=== PATIENT | female | born 1950 | race American Indian/Alaskan Native ===

== ENCOUNTER → 2016-12-29 | Outpatient (CLI) | payer MEDICARE, MEDICAID | LOC: MW.CHORTHO 08:00 | PROVIDERS: ATTEND Physician Assistant | DX: T84.84XA Pain due to internal orthopedic prosthetic devices, implants and grafts, initial encounter (principal); Z96.659 Presence of unspecified artificial knee joint; M25.461 Effusion, right knee; Z96.641 Presence of right artificial hip joint | CPT/HCPCS: 20610; G0463 ==

== ENCOUNTER → 2016-12-30 | Outpatient (CLI) | payer MEDICARE, MEDICAID | LOC: MW.CHNEURO 08:00 | PROVIDERS: ATTEND Psychiatry & Neurology Neuromuscular Medicine | DX: G60.3 Idiopathic progressive neuropathy (principal) | CPT/HCPCS: 95885; 95909; 99211 ==

== ENCOUNTER → 2017-01-03 | Outpatient (CLI) | payer MEDICARE, MEDICAID | LOC: MW.CHORTHO 08:00 | PROVIDERS: ATTEND Physician Assistant | DX: T84.84XA Pain due to internal orthopedic prosthetic devices, implants and grafts, initial encounter (principal); Z96.659 Presence of unspecified artificial knee joint; Z96.652 Presence of left artificial knee joint | CPT/HCPCS: G0463 ==

== ENCOUNTER → 2017-01-10 | Outpatient (CLI) | payer MEDICARE, MEDICAID ==
--- NOTE | 2017-01-11 09:42 | CR ---
EXAMINATION: Left knee HISTORY: Pain COMPARISON: 12/08/2016 TECHNIQUE: 3 views FINDINGS/IMPRESSION: Left total knee hardware is demonstrated in stable position and alignment. No a cute osseous abnormality is noted. No soft tissue swelling or significant joint effusion.
== END ==
LOC: MW.CHORTHO 14:47
PROVIDERS: ATTEND Orthopaedic Surgery
DX: T84.84XA Pain due to internal orthopedic prosthetic devices, implants and grafts, initial encounter (principal); Z96.659 Presence of unspecified artificial knee joint; M17.12 Unilateral primary osteoarthritis, left knee
CPT/HCPCS: 73562-26-LT; 73562-LT; G0463

== ENCOUNTER → 2017-01-24 | Outpatient (CLI) | payer MEDICARE, MEDICAID | END | disposition home or self-care (01) | LOC: MW.CHORTHO 14:01 | PROVIDERS: ATTEND Orthopaedic Surgery | DX: M17.12 Unilateral primary osteoarthritis, left knee (principal); T84.84XA Pain due to internal orthopedic prosthetic devices, implants and grafts, initial encounter; Z96.659 Presence of unspecified artificial knee joint | CPT/HCPCS: 20610; 87070; 87205; 89050; 89060; G0463 ==

== ENCOUNTER → 2017-03-08 | Outpatient (CLI) | payer MEDICARE, MEDICAID ==
--- NOTE | 2017-03-08 15:55 | NM ---
EXAMINATION: 3 phase bone scan of the knees HISTORY: Pain COMPARISON: Knee radiographs dated 12/08/2016 and 06/28/2016. TECHNIQUE: The delayed Multiplanar, angiographic, and blood pool imaging obtained of the knees follo wing the administration of 22.1 mCi of technetium 99m labeled MDP. FINDINGS: There is symmetric flow to the knees bilaterally without evidence of increased activity. There is a trace increased activity along the medial aspect of the left knee on the blood pool imaging. There i s also focally increased uptake on the delayed imaging within this region. Otherwise normal-appearin g post operative periprosthetic uptake is noted within the knees bilaterally. IMPRESSION: 1. Mild focally increased MDP uptake along the medial aspect of the left tibia with a trace increase d blood pool. This is most likely secondary to mild loosening, however mild osteomyelitis could not be excluded. 2. Normal-appearing periprosthetic uptake within the right knee.
== END ==
LOC: MW.NM 09:33
PROVIDERS: ATTEND Orthopaedic Surgery
DX: M17.11 Unilateral primary osteoarthritis, right knee (principal); T84.84XA Pain due to internal orthopedic prosthetic devices, implants and grafts, initial encounter; Z96.651 Presence of right artificial knee joint
CPT/HCPCS: 78315; A9503

== ENCOUNTER 2017-05-15 10:00 | Inpatient (IN) | payer MEDICARE, MEDICAID ==
[2017-08-28] MEDS ORDERED: oxyCODONE ER 20 MG TAB.ER PO SCH (06:00)
[2017-08-28] MEDS ORDERED: Scopolamine 1.5 MG Transdermal Patch TRDERM SCH (06:00)
[2017-08-28] MEDS ORDERED: Lactated Ringers 1,000 ML IV SCH (06:00)
[2017-08-28] MEDS ORDERED: Acetaminophen 500 MG Tab PO SCH (06:00)
[2017-08-28] MEDS ORDERED: Famotidine 20 MG/2 ML SDV IVPUSH SCH (06:00)
[2017-08-28] MEDS ORDERED: Ropivacaine 49.25 ML, Ketorolac 30 MG, EPINEPHrine 0.5 MG, cloNIDine 80 MCG in Sodium C... INJECT ONE (06:00)
[2017-08-28] MEDS ORDERED: ceFAZolin 2 GM in Premix Bag 1 BAG IV SCH (06:00)
[2017-08-28] MEDS ORDERED: Ketorolac 30 MG/ML SDV IVPUSH SCH ×2 (06:00→17:00)
[2017-08-28] MEDS ORDERED: fentaNYL 100 MCG/2 ML SDV ONE (10:55)
[2017-08-28] MEDS ORDERED: Propofol 200 MG/20 ML SDV ONE (10:55)
[2017-08-28] MEDS ORDERED: Lidocaine 2% 5 ML SDV ONE (10:55)
[2017-08-28] MEDS ORDERED: Midazolam 1 MG/ML 2 ML SDV ONE (10:55)
[2017-08-28] MEDS ORDERED: Ondansetron 4 MG/2 ML SDV ONE ×2 (10:56→13:01)
[2017-08-28] MEDS ORDERED: ePHEDrine 50 MG/ML SDV ONE (10:56)
--- NOTE | 2017-08-28 11:08 | PCM.PREANE ---
Preanesthetic Assessment - Procedure Proposed Procedure: Total knee revision - Anesthesia/Transfusion/Family Hx Anesthesia History: Prior Anesthesia Without Reaction Family History of Anesthesia Reaction: No Transfusion History: No Prior Transfusion(s) Intubation History: Unknown - Review of Systems General: Other (Overweight, general CV effectors; Potassium losing - on regular replacement regimen) Pulmonary: Other (COPD) Cardiovascular: Other (CHF hx; hypercholesterolemia; s/p cath - no PCI ) Gastrointestinal: Other (GERD) Neurological: Numbness (?DM), Difficulty Walking (knee pain) Other: Reports: Diabetes - Physical Assessment NPO Status Date: 08/27/17 NPO Status Time: 23:00 Temperature: 95.9 F Vital Signs: Last Vital Signs Temp 95.9 F 08/28/17 10:42 Pulse Resp BP Pulse Ox Height: 5 ft 2 in Weight: 238 lb ASA Class: 3 Mental Status: Alert & Oriented x3 Airway Class: Mallampati = 1 Dentition: Reports: Normal Dentition (uppers only; lower missing) Thyro-Mental Finger Breadths: 3 Mouth Opening Finger Breadths: 3 ROM/Head Extension: Full Lungs: Clear to Auscultation, Normal Respiratory Effort Cardiovascular: Regular Rate, Regular Rhythm, No Murmurs - Allergies Allergies/Adverse Reactions: Allergies Allergy/AdvReac Type Severity Reaction Status Date / Time adhesive Allergy Redness Verified 08/03/17 11:51 hydromorphone [From Dilaudid] Allergy Hallucinati Verified 08/03/17 11:51 ons nickel Allergy Rash Verified 08/03/17 11:51 risedronate sodium Allergy Hallucinati Verified 08/03/17 12:17 [From Actonel] ons sulfamethoxazole Allergy Rash Verified 08/24/17 13:56 [From Bactrim] tramadol HCl [From Ultram] Allergy unknown Verified 03/27/14 12:59 trimethoprim [From Bactrim] Allergy Rash Verified 08/24/17 13:56 - Blood Blood Available: Yes Product(s) Available: PRBC (T and S) - Anesthesia Plan Pre-Op Medication Ordered: Other (per surgeon protocol) - Acknowledgements Anesthesia Type Planned: General Anesthesia (due to Severe GERD), Spinal Pt an Appropriate Candidate for the Planned Anesthesia: Yes Alternatives and Risks of Anesthesia Discussed w Pt/Guardian: Yes Pt/Guardian Understands and Agrees with Anesthesia Plan: Yes PreAnesthesia Questionnaire HEENT History: Reports: Other (See Below) Other HEENT History: wears reading glasses, has top denture Cardiovascular History: Reports: CAD, Heart Failure, High Cholesterol, Hypertension, Other (See Below) Other Cardiovascular History: edema to lower extremities, left heart cath done with no PCI needed Respiratory History: Reports: Other (See Below) Other Respiratory History: has inhaler prescribed for when she has a cold and gets "wheezy", denies any lung problems Gastrointestinal History: Reports: GERD Genitourinary History: Reports: None 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: Musculoskeletal History: Reports: Arthritis, Fracture Other Musculoskeletal History: fx left wrist, walks with walker Neurological History: Reports: Neuropathy, Peripheral Psychiatric History: Reports: Anxiety, Depression Endocrine/Metabolic History: Reports: Obesity/BMI 30+ Immunologic History: Reports: Other (See Below) Other Immunologic History: MRSA in the past, states has had 3 neg tests and is cleared Dermatologic History: Reports: Other (See Below) Other Dermatologic History: rash to rt foot - Past Surgical History Head Surgeries/Procedures: Reports: None HEENT Surgical History: Reports: Cataract Surgery GI Surgical History: Reports: Appendectomy, Cholecystectomy, Colon, Colonoscopy , Other (See Below) Other GI Surgeries/Procedures: hx colon resection Female Surgical History: Reports: Hysterectomy Other Female Surgeries/Procedures: rectocele repair Musculoskeletal Surgical History: Reports: Carpal Tunnel, Knee Replacement Other Musculoskeletal Surgeries/Procedures:: hx devyn knee replacement, ORIF left wrist with plate and screws - SUBSTANCE USE Smoking Status *Q: Former Smoker Recreational Drug Use History: No - HOME MEDS Home Medications: Home Meds ALPRAZolam [Alprazolam] 1 mg PO ASDIRECTED PRN 08/03/17 [History] Albuterol [IJD: Albuterol HFA] 2 puff INH ASDIRECTED PRN 08/03/17 [History] Amitriptyline [Elavil] 10 mg PO BID 08/03/17 [History] Aspirin [[place] Aspirin] 81 mg PO DAILY 08/03/17 [History] Bumetanide 1.5 tab PO BID 08/03/17 [History] Carvedilol 3.125 mg PO BID 08/03/17 [History] DULoxetine HCl [Duloxetine HCl] 60 mg PO DAILY 08/03/17 [History] Esomeprazole [NexIUM] 40 mg PO DAILY 08/03/17 [History] Magnesium Chloride [Slow-Mag] 1 tab PO BID 08/03/17 [History] Metolazone 2.5 mg PO DAILY 08/03/17 [History] Midodrine 5 mg PO TID 08/03/17 [History] Potassium Chloride 3 tab PO TID 08/03/17 [History] Pregabalin [Lyrica] 200 mg PO TID 08/03/17 [History] Ranitidine HCl [Zantac] 150 mg PO BID 08/03/17 [History] Simvastatin [Zocor] 10 mg PO DAILY 08/03/17 [History] oxyCODONE HCl/Acetaminophen [Percocet 10-325 mg Tablet] 1 tab PO BID PRN [History] - CURRENT (IN HOUSE) MEDS Current Meds: Current Medications Acetaminophen (Tylenol Extra Strength) 1,000 mg PO ONARRIVE [facility] Last Admin: 08/28/17 10:42 Dose: 1,000 mg Famotidine (Pepcid) 40 mg IVPUSH ONARRIVE [facility] [place] Last Admin: 08/28/17 10:40 Dose: 40 mg Cefazolin Sodium/Dextrose 2 gm (/ Premix) 50 mls @ 100 mls/hr IV ONCALL ANN MARIE Lactated Ringer's (Ringers, Lactated) 1,000 mls @ 100 mls/hr IV ASDIRECTED ANN MARIE Ketorolac Tromethamine (Toradol) 30 mg IVPUSH ONARRIVE [facility] [place] Last Admin: 08/28/17 10:42 Dose: 30 mg Oxycodone HCl (Oxycontin) 20 mg PO ONARRIVE ANN MARIE Last Admin: 08/28/17 10:43 Dose: 20 mg Scopolamine (Transderm-Scop) 1.5 mg TRDERM ONARRIVE ANN MARIE Last Admin: 08/28/17 10:41 Dose: 1.5 mg Tranexamic Acid (Cyklokapron) 4,000 mg IV SEECOMMENT ANN MARIE Discontinued Medications Ephedrine Sulfate (Ephedrine Sulfate) Confirm Administered Dose 50 mg .ROUTE .STK-MED ONE Stop: 08/28/17 10:57 Fentanyl (Sublimaze) Confirm Administered Dose 200 mcg .ROUTE .STK-MED ONE Stop: 08/28/17 10:56 Ropivacaine 49.25 ml/Ketorolac Tromethamine 30 mg/Epinephrine HCl 0.5 mg/ Clonidine HCl 80 mcg/ Sodium Chloride 100 mls @ 50 mls/min INJECT ONETIME ONE Stop: 08/28/17 06:01 Lidocaine (Xylocaine-Mpf 2%) Confirm Administered Dose 10 ml .ROUTE .STK-MED ONE Stop: 08/28/17 10:56 Midazolam HCl (Versed 1 Mg/Ml) Confirm Administered Dose 2 mg .ROUTE .STK-MED ONE Stop: 08/28/17 10:56 Ondansetron HCl (Zofran) Confirm Administered Dose 4 mg .ROUTE .STK-MED ONE Stop: 08/28/17 10:57 Propofol (Diprivan 20 Ml) Confirm Administered Dose 400 mg .ROUTE .STK-MED ONE Stop: 08/28/17 10:56 Tranexamic Acid (Cyklokapron) Confirm Administered Dose 4,000 mg .ROUTE .STK- MED ONE Stop: 08/28/17 07:17
[2017-08-28] MEDS ORDERED: Ondansetron 4 MG/2 ML SDV IV PRN (12:36)
[2017-08-28] MEDS ORDERED: Bisacodyl 10 MG Supp RECTAL PRN (12:37)
[2017-08-28] MEDS ORDERED: Aluminum Hydroxide/Magnesium Hydroxide/Simethicone Susp 30 ML Cup PO PRN (12:37)
[2017-08-28] MEDS ORDERED: diphenhydrAMINE 25 MG Cap PO PRN (12:37)
--- NOTE | 2017-08-28 13:11 | PCM.OPNOTE ---
- General Post-Op/Procedure Note Date of Surgery/Procedure: 08/28/17 Operative Procedure(s): Revision L TKA with poly exchange Post-Op Diagnosis: Painful L TKA Anesthesia Technique: General ET Tube, Spinal Primary Surgeon: Priscila Maria Food Counter Attendant: Lora Rodriguez Food Counter Attendant: Shani Joseph EBL in mLs: 20 Condition: Good Free Text/Narrative:: tt=35 min #[id number] Intake & Output 08/27/17 08/28/17 08/28/17 22:59 06:59 14:59 Output Total 250 Balance -250
[2017-08-28] MEDS: fentaNYL 100 MCG/2 ML SDV IVPUSH PRN ×2 (13:33→13:40)
[2017-08-28] MEDS: ceFAZolin 2 GM in Premix Bag 1 BAG IV SCH ×3 (14:18→18:25)
[2017-08-28] MEDS ORDERED: Albuterol 8 GM Inhaler INH PRN ×2 (14:29→14:42)
[2017-08-28] MEDS ORDERED: Midodrine 5 MG Tab PO SCH (14:30)
[2017-08-28] MEDS: Acetaminophen/HYDROcodone 325-10 MG Tab PO PRN ×2 (14:40→20:13)
[2017-08-28] MEDS: Midodrine 5 MG Tab PO SCH ×2 (14:48→21:19)
--- NOTE | 2017-08-28 15:12 | PCM.CONS ---
H&P History of Present Illness - General Date of Service: 08/28/17 Admit Problem/Dx: Admission Diagnosis/Problem Admission Diagnosis/Problem Replacement of total knee joint Source of Information: Patient, Old Records History Limitations: Reports: No Limitations - History of Present Illness Initial Comments - Free Text/Narative: THis 67 year old female admitted with Dr. Maria for a revision of L TKA. Hospitalist service consulted for medical management [facility], CHF, and HTN Abeba recently arrived to floor, she is alert and oriented. Having no pain. Denies chest pain or SOB. Reports normal BP is low, 100s-105/60s. She reports Metformin was stopped, she reports they told her she didn't have DM. Prior to surgery she had cardiology clearance with angiogram, this revealed mild non-obstructive CAD. She has known HTN and hypertensive heart disease, along with diastolic heart failure. Headache Pain Score (Numeric/FACES): 3 - Related Data Allergies/Adverse Reactions: Allergies Allergy/AdvReac Type Severity Reaction Status Date / Time adhesive Allergy Redness Verified 08/03/17 11:51 hydromorphone [From Dilaudid] Allergy Hallucinati Verified 08/03/17 11:51 ons nickel Allergy Rash Verified 08/03/17 11:51 risedronate sodium Allergy Hallucinati Verified 08/03/17 12:17 [From Actonel] ons sulfamethoxazole Allergy Rash Verified 08/24/17 13:56 [From Bactrim] tramadol HCl [From Ultram] Allergy unknown Verified 03/27/14 12:59 trimethoprim [From Bactrim] Allergy Rash Verified 08/24/17 13:56 Home Medications: Home Meds ALPRAZolam [Alprazolam] 1 mg PO BID PRN 08/03/17 [History] Albuterol [IJD: Albuterol HFA] 2 puff INH ASDIRECTED PRN 08/03/17 [History] Amitriptyline [Elavil] 10 mg PO BID 08/03/17 [History] Aspirin [[place] Aspirin] 81 mg PO DAILY 08/03/17 [History] Bumetanide 3 mg PO BID@0800,1400 08/03/17 [History] Carvedilol 3.125 mg PO BID 08/03/17 [History] DULoxetine HCl [Duloxetine HCl] 60 mg PO DAILY 08/03/17 [History] Esomeprazole [NexIUM] 40 mg PO DAILY 08/03/17 [History] Magnesium Chloride [Slow-Mag] 1 tab PO BID 08/03/17 [History] Metolazone 2.5 mg PO DAILY 08/03/17 [History] Midodrine 5 mg PO TID 08/03/17 [History] Potassium Chloride 60 meq PO TIDMEALS 08/03/17 [History] Pregabalin [Lyrica] 200 mg PO TID 08/03/17 [History] Ranitidine HCl [Zantac] 150 mg PO BID 08/03/17 [History] Simvastatin [Zocor] 10 mg PO BEDTIME 08/03/17 [History] oxyCODONE HCl/Acetaminophen [Percocet 10-325 mg Tablet] 10 - 325 mg PO BID PRN 08/03/17 [History] Iron Polysaccharide Complex [Polysaccharide Iron 150] 150 mg PO BID 08/28/17 [ History] Nitroglycerin [Nitrostat] 0.4 mg SL .EVERY 5 MINUTES PRN MDD 1.2 mg 08/28/17 [ History] Past Medical History HEENT History: Reports: Other (See Below) Other HEENT History: wears reading glasses, has top denture Cardiovascular History: Reports: CAD (mild non-obstructive CAD), Heart Failure, High Cholesterol, Hypertension, Other (See Below) Other Cardiovascular History: edema to lower extremities Respiratory History: Reports: Other (See Below) Other Respiratory History: has inhaler prescribed for when she has a cold and gets "wheezy", denies any lung problems Gastrointestinal History: Reports: GERD Genitourinary History: Reports: 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: Musculoskeletal History: Reports: Arthritis, Fracture Other Musculoskeletal History: fx left wrist, walks with walker Neurological History: Reports: Neuropathy, Peripheral Psychiatric History: Reports: Anxiety, Depression Endocrine/Metabolic History: Reports: Diabetes, Type II (was at one time treated with metformin, told to stop this due to "not having diabetes"), Obesity /BMI 30+ Immunologic History: Reports: Other (See Below) Other Immunologic History: MRSA in the past, states has had 3 neg tests and is cleared Dermatologic History: Reports: Other (See Below) Other Dermatologic History: rash to rt foot - Past Surgical History Head Surgeries/Procedures: Reports: None HEENT Surgical History: Reports: Cataract Surgery GI Surgical History: Reports: Appendectomy, Cholecystectomy, Colon, Colonoscopy , Other (See Below) Other GI Surgeries/Procedures: hx colon resection Female Surgical History: Reports: Hysterectomy Other Female Surgeries/Procedures: rectocele repair Musculoskeletal Surgical History: Reports: Carpal Tunnel, Knee Replacement Other Musculoskeletal Surgeries/Procedures:: hx devyn knee replacement, ORIF left wrist with plate and screws Social & Family History - Tobacco Use Smoking Status *Q: Former Smoker Used Tobacco, but Quit: Yes Month Tobacco Last Used: quit smoking 5 yrs ago - Recreational Drug Use Recreational Drug Use: No H&P Review of Systems - Review of Systems: Review Of Systems: See Below General: Reports: No Symptoms. Denies: Fever, Chills, Malaise HEENT: Denies: No Symptoms, Headaches, Sinus Congestion, Sore Throat, Vertigo Pulmonary: Denies: Shortness of Breath, Wheezing, Cough, Sputum Cardiovascular: Reports: Edema (typically has some to BLE). Denies: Chest Pain , Palpitations, Orthopnea, Lightheadedness Gastrointestinal: Reports: No Symptoms. Denies: Abdominal Pain, Black Stool, Bloody Stool, Nausea, Vomiting Neurological: Reports: No Symptoms. Denies: Confusion Hematologic/Lymphatic: Reports: No Symptoms. Denies: Anemia Immunologic: Reports: No Symptoms. Denies: Anaphylaxis Exam - Exam Exam: See Below - Vital Signs Vital Signs: Last Vital Signs Temp 98.2 F 08/28/17 12:59 Pulse 75 08/28/17 13:57 Resp 10 L 08/28/17 13:57 BP 95/50 L 08/28/17 14:17 Pulse Ox 96 08/28/17 13:57 Weight: 107.955 kg - Exam Quality Assessment: Supplemental Oxygen, Urinary Catheter, DVT Prophylaxis General: Alert, Oriented, Cooperative HEENT: Conjunctiva Clear, Mucosa Moist & [place], Pupils Equal, Pupils Reactive Neck: Supple, Trachea Midline, 2 Lungs: Clear to Auscultation, Normal Respiratory Effort Cardiovascular: Regular Rate, Regular Rhythm, Normal S1, Normal S2. No: Systolic Murmur Extremities: Normal Inspection, Pedal Edema (+1 pitting BLE) Skin: Incision (LTKA dressing C/D/I ) Neuro Extensive - Mental Status: Alert, Oriented x3, Normal Mood/Affect, Normal Cognition Psychiatric: Alert, Normal Affect, Normal Mood - Patient Data Lab Results Last 24 hrs: Laboratory Results - last 24 hr 08/28/17 08/28/17 08/28/17 Range/Units 10:02 13:45 14:27 WBC 7.24 (4.0-11.0) K/uL RBC 4.23 L (4.30-5.90) M/uL Hgb 12.0 (12.0-16.0) g/dL Hct 36.6 (36.0-46.0) % MCV 86.5 (80.0-98.0) fL MCH 28.4 (27.0-32.0) pg MCHC 32.8 (31.0-37.0) g/dL RDW Std Deviation 45.1 (28.0-62.0) fl RDW Coeff of So 14 (11.0-15.0) % Plt Count 179 (150-400) K/uL MPV 11.70 (7.40-12.00) fL Neut % (Auto) 57.7 (48.0-80.0) % Lymph % (Auto) 28.3 (16.0-40.0) % [place] % (Auto) 6.4 (0.0-15.0) % Eos % (Auto) 7.0 (0.0-7.0) % Baso % (Auto) 0.6 (0.0-1.5) % Neut # (Auto) 4.2 (1.4-5.7) K/uL Lymph # (Auto) 2.1 (0.6-2.4) K/uL Newton # (Auto) 0.5 (0.0-0.8) K/uL Eos # (Auto) 0.5 (0.0-0.7) K/uL Baso # (Auto) 0.0 (0.0-0.1) K/uL Nucleated RBC % 0.0 /100WBC Nucleated RBCs # 0 K/uL POC Glucose 126 H (60-110) mg/dL Blood Type O POSITIVE Antibody Screen NEGATIVE Result Diagrams: 08/28/17 14:27 08/28/17 14:27 Chriss Results Last 24 hrs: Microbiology 08/28/17 12:05 Gram Stain - Final Leg, Left Consult PN Assessment/Plan Procedures: Procedures BODY FLUID CELL COUNT (01/24/17) BONE IMAGING 3 PHASE (03/08/17) CHEST X-RAY 1 VIEW FRONTAL (11/18/16) CULTURE OTHR SPECIMN AEROBIC (01/24/17) DRAIN/INJ JOINT/BURSA W/O US (12/08/16) EXAM SYNOVIAL FLUID CRYSTALS (01/24/17) LUNG VENTILAT&PERFUS IMAGING (11/18/16) OFFICE/OUTPATIENT VISIT NEW (09/16/16) OFFICE/OUTPATIENT VISIT NEW (03/26/14) ORGANIC ACID SINGLE QUANT (09/16/16) PROTEIN E-PHORESIS SERUM (09/16/16) SMEAR GRAM STAIN (01/24/17) URINALYSIS NONAUTO W/SCOPE (03/26/14) VITAMIN B-12 (09/16/16) X-RAY EXAM KNEE 4 OR MORE (12/08/16) X-RAY EXAM OF KNEE 3 (06/28/16) (1) S/P revision of total knee SNOMED Code(s): 578888429 Code(s): Z96.659 - PRESENCE OF UNSPECIFIED ARTIFICIAL KNEE JOINT Current Visit: Yes Qualifiers: Laterality: left Qualified Code(s): Z96.652 - Presence of left artificial knee joint (2) HTN (hypertension) SNOMED Code(s): 22373468 Code(s): I10 - ESSENTIAL (PRIMARY) HYPERTENSION Current Visit: Yes Qualifiers: Hypertension type: essential hypertension Qualified Code(s): I10 - Essential (primary) hypertension (3) Hypertensive heart disease SNOMED Code(s): 85303183 Code(s): I11.9 - HYPERTENSIVE HEART DISEASE WITHOUT HEART FAILURE Current Visit: Yes Qualifiers: Heart failure presence: with heart failure Qualified Code(s): I11.0 - Hypertensive heart disease with heart failure (4) Diastolic CHF SNOMED Code(s): 472959798 Code(s): I50.30 - UNSPECIFIED DIASTOLIC (CONGESTIVE) HEART FAILURE Current Visit: Yes Qualifiers: Congestive heart failure chronicity: chronic Qualified Code(s): I50.32 - Chronic diastolic (congestive) heart failure (5) Hx of diabetes mellitus SNOMED Code(s): 691933195 Code(s): Z86.39 - PERSONAL HISTORY OF ENDO, NUTRITIONAL AND METABOLIC DISEASE Current Visit: Yes (6) Depression SNOMED Code(s): 79461542 Code(s): F32.9 - MAJOR DEPRESSIVE DISORDER, SINGLE EPISODE, UNSPECIFIED Current Visit: Yes Qualifiers: Depression Type: unspecified Qualified Code(s): F32.9 - Major depressive disorder, single episode, unspecified (7) Anxiety SNOMED Code(s): 80456061 Code(s): F41.9 - ANXIETY DISORDER, UNSPECIFIED Current Visit: Yes (8) Hypokalemia SNOMED Code(s): 21101431 Code(s): E87.6 - HYPOKALEMIA Current Visit: Yes (9) Hypomagnesemia SNOMED Code(s): 297028184 Code(s): E83.42 - HYPOMAGNESEMIA Current Visit: Yes (10) Morbid obesity with BMI of 40.0-44.9, adult SNOMED Code(s): 734186434 Code(s): E66.01 - MORBID (SEVERE) OBESITY DUE TO EXCESS CALORIES; Z68.41 - BODY MASS INDEX (BMI) 40.0-44.9, ADULT Current Visit: Yes Problem List Initiated/Reviewed/Updated: Yes My Orders Last 24 Hours: My Active Orders 08/28/17 14:27 BASIC METABOLIC PANEL,BMP [CHEM] Routine MAGNESIUM [CHEM] Routine 08/28/17 14:29 ALPRAZolam 1 mg PO ASDIRECTED PRN 08/28/17 14:37 Midodrine 5 mg PO TID 08/28/17 14:42 Albuterol [Ventolin HFA] 0 gm INH Q4H PRN 08/28/17 21:00 Amitriptyline [Elavil] 10 mg PO BID Bumetanide [Bumetanide] 1.5 tab PO BID Carvedilol [Coreg] 3.125 mg PO BID Simvastatin [Zocor] 10 mg PO BEDTIME 08/28/17 22:00 Pregabalin [Lyrica] 200 mg PO TID 08/29/17 09:00 DULoxetine [Cymbalta] 60 mg PO DAILY Metolazone [Zaroxolyn] 2.5 mg PO DAILY Plan: This 67 year old female admitted with revision of L TKA. Hospitalist service consulted for medical management due to comorbidities. 1. S/P revision L TKA: Orders per Dr. Maria, will stop Celebrex and Toradol due to CAD. 2. HTN: Continue Coreg 3.125 mg BID. 3. Diastolic CHF: Stable, did recieve 2 L IVF in OR, will stop IVFs now and monitor. BP normally on the low end. Monitor closely mariela overload, DAILY weight and STRICT I/O, low Na diet. Continue Bumex and Metolazone. Also continue Midodrine for hypotension. 4. Hyokalemia/hypomagnesemia: Supplement and monitor daily. Will continue KCL PO 60 MEQ TID and add IV Magnesium. recheck in am. Due to K+ 2.8, will place on telemetry. 5. CAD:Continue ASA and Atorvastatin. Stop Celebrex and Toradol due to CAD and cardiac risk. VTE prophlyaxis: Would recommend when Ortho deems appropriate, currently ASA 325 BID ordered.
[2017-08-28] MEDS ORDERED: Magnesium Sulfate/Water 4 GM in Premix Bag 1 BAG IV ONE (15:24)
[2017-08-28] MEDS: Potassium Chloride 20 MEQ Tab.ER PO SCH (17:26)
--- NOTE | 2017-08-28 18:25 | PCM.SN ---
- Free Text/Narrative Note: Late Entry - Ancef 2 grams IV was given at 8087-3722 Intra-Op after cultures were obtained. Per Gerson Suggs [employer]
--- NOTE | 2017-08-28 19:15 | OR ---
SURGEON: Priscila Maria MD DATE OF PROCEDURE: 08/28/2017 PREOPERATIVE DIAGNOSIS: Painful left total knee arthroplasty. POSTOPERATIVE DIAGNOSIS: Painful left total knee arthroplasty. PROCEDURE: Revision left total knee arthroplasty with polyethylene exchange. ASSISTING: Lora Rodriguez PA-C and Shani Joseph PA-C. ANESTHESIA: Spinal and general. ESTIMATED BLOOD LOSS: 20 mL. TOURNIQUET TIME: 35 minutes. COMPLICATIONS: None. DVT PROPHYLAXIS: PAS boot and GABRIELLE hose to the nonoperative leg. IMPLANTS USED: Size 12 all-polyethylene articular surface. BRIEF HISTORY: Abeba is a 67-year-old female, who underwent a left total knee arthroplasty approximately 4 years ago. She did well initially following the surgery. She has developed increased pain in the knee. She has had synovial studies done as well as a bone scan, which did not show significant abnormal findings. Due to her lack of response to conservative treatment, I did recommend surgical intervention. The risks and goals of procedure were discussed with the patient and documented preoperatively. She agreed to proceed. DESCRIPTION OF PROCEDURE: The patient was properly identified and brought to the operating room. She was transferred from the OR cart and placed on the operating table in supine position. Spinal anesthetic was administered. After adequate anesthesia was obtained, a general anesthesia was also administered. Following this, a well- padded tourniquet was applied to the left lower extremity. The left lower extremity was then prepped in standard fashion using ChloraPrep solution. It was then sterilely draped. A time-out was performed to ensure correct site and procedure. Preoperative antibiotics were held. The surgical site had been marked preoperatively. An Esmarch was used to exsanguinate the left lower extremity and the tourniquet was inflated to 250 mmHg. Incision was made over the site of the previous incision. The subcutaneous tissues were dissected down to the level of the fascia. A medial parapatellar approach to the knee was made. A straw-colored fluid was found within the joint. No purulence was noted. The polyethylene was then removed without difficulty. It was inspected. There was some minor wear, which appeared to be within normal limits. The tissue was taken from the posterior aspect of the knee near the polyethylene and tibial tray. This was sent for cultures along with pathologic review. The pathology revealed less than 1 WBC per high-powered field, then we elected to proceed with the surgery. I thoroughly inspected the edges of the implant and bone interface. There did not appear to be any failure of the actual prosthesis and I elected to leave these in place. She did have abundant scar tissue noted around the circumference of her patella. This was debrided with electrocautery. A 12 mm articular surface trial was trialed and this felt stable to varus and valgus stressing in both the extended and flexed position. It was then removed. 6 L of normal saline were then irrigated through the knee joint using a Pulsavac magazine worker. The 12 mm articular surface was then inserted without difficulty and it snapped easily into place. She was again taken through a range of motion and the knee was felt to be stable. Tourniquet was then deflated. No excess bleeding was noted. The fascial layer was then closed with #1 Vicryl. The subcutaneous tissues were closed with 2-0 Vicryl and the skin was closed with michael. Xeroform gauze was placed over the wound and a bulky dressing was applied. She was awakened from her anesthetic and transferred back to the operating room cart. She was brought to recovery room in stable condition. All needle and sponge counts were correct. ERIKA / SWATI /[id number] [place]
[2017-08-28] MEDS: Carvedilol 3.125 MG Tab PO SCH (20:14)
[2017-08-28] MEDS: Simvastatin 10 MG Tab PO SCH (20:17)
[2017-08-28] MEDS: Amitriptyline 10 MG Tab PO SCH (20:17)
[2017-08-28] MEDS: Docusate Sodium 100 MG Cap PO SCH (20:17)
[2017-08-28] MEDS ORDERED: Bumetanide 1 MG Tab PO SCH (21:00)
[2017-08-28] MEDS: ALPRAZolam 0.5 MG Tab PO PRN (21:18)
[2017-08-28] MEDS: Pregabalin 200 MG Cap PO SCH (21:18)
[2017-08-29] MEDS: ceFAZolin 2 GM in Premix Bag 1 BAG IV SCH (01:14)
[2017-08-29] MEDS: Midodrine 5 MG Tab PO SCH ×3 (05:49→22:02)
[2017-08-29] MEDS: Pregabalin 200 MG Cap PO SCH ×3 (05:50→22:02)
--- NOTE | 2017-08-29 07:06 | PCM48HPAN ---
Post Anesthesia Note - EVALUATION WITHIN 48HRS OF ANESTHETIC Vital Signs in Normal Range: Yes Patient Participated in Evaluation: Yes Respiratory Function Stable: Yes Airway Patent: Yes Cardiovascular Function Stable: Yes Hydration Status Stable: Yes Pain Control Satisfactory: Yes Nausea and Vomiting Control Satisfactory: Yes Mental Status Recovered: Yes - COMMENTS/OBSERVATIONS Free Text/Narrative:: Hypomagnesia improving, hypokalemia still requires correction.
[2017-08-29] MEDS ORDERED: Sodium Chloride 0.9% 2.5 ML Syringe FLUSH PRN (08:08)
[2017-08-29] MEDS ORDERED: Sodium Chloride 0.9% 10 ML Syringe FLUSH PRN (08:08)
--- NOTE | 2017-08-29 08:08 | PCM.SURGPN ---
<Lora Rodriguez - Last Filed: 08/29/17 08:06> - General Info Date of Service: 08/29/17 Date of Surgery/Procedure: 08/28/17 POD#: 1 Functional Status: Reports: Pain Controlled, Tolerating Diet, Ambulating - Review of Systems General: Reports: No Symptoms HEENT: Reports: No Symptoms Pulmonary: Reports: No Symptoms Cardiovascular: Reports: No Symptoms Gastrointestinal: Reports: No Symptoms Genitourinary: Reports: No Symptoms Musculoskeletal: Reports: Leg Pain, Joint Pain, Joint Swelling Neurological: Reports: No Symptoms Psychiatric: Reports: No Symptoms - Patient Data Vitals - Most Recent: Last Vital Signs Temp 36.4 C 08/29/17 07:34 Pulse 71 08/29/17 04:00 Resp 18 08/29/17 07:34 BP 101/63 08/29/17 07:34 Pulse Ox 94 L 08/29/17 07:34 Weight - Most Recent: 104 kg I&O - Last 24 Hours: Intake & Output 08/28/17 08/29/17 08/29/17 22:59 06:59 14:59 Intake Total 690 50 Output Total 30 Balance 660 50 Lab Results Last 24 Hrs: Laboratory Results - last 24 hr 08/28/17 08/28/17 08/28/17 Range/Units 10:02 13:45 14:27 WBC (4.0-11.0) K/uL RBC (4.30-5.90) M/uL Hgb (12.0-16.0) g/dL Hct (36.0-46.0) % MCV (80.0-98.0) fL MCH (27.0-32.0) pg MCHC (31.0-37.0) g/dL RDW Std Deviation (28.0-62.0) fl RDW Coeff of So (11.0-15.0) % Plt Count (150-400) K/uL MPV (7.40-12.00) fL Neut % (Auto) (48.0-80.0) % Lymph % (Auto) (16.0-40.0) % [place] % (Auto) (0.0-15.0) % Eos % (Auto) (0.0-7.0) % Baso % (Auto) (0.0-1.5) % Neut # (Auto) (1.4-5.7) K/uL Lymph # (Auto) (0.6-2.4) K/uL [place] # (Auto) (0.0-0.8) K/uL Eos # (Auto) (0.0-0.7) K/uL Baso # (Auto) (0.0-0.1) K/uL Nucleated RBC % /100WBC Nucleated RBCs # K/uL Sodium 142 (136-146) mmol/L Potassium 2.8 L (3.5-5.1) mmol/L Chloride 97 L (98-110) mmol/L Carbon Dioxide 31 (21-31) mmol/L BUN 13 (6.0-23.0) mg/dL Creatinine 1.1 (0.6-1.5) mg/dL Est Cr Clr Drug Dosing 38.18 mL/min Estimated GFR (MDRD) 49.2 ml/min Glucose 131 H (60-110) mg/dL POC Glucose 126 H (60-110) mg/dL Calcium 8.9 (8.8-10.8) mg/dL Magnesium 1.4 L (1.5-2.3) mEq/L Blood Type O POSITIVE Antibody Screen NEGATIVE 08/28/17 08/28/17 08/29/17 Range/Units 14:27 20:39 05:04 WBC 7.24 (4.0-11.0) K/uL RBC 4.23 L (4.30-5.90) M/uL Hgb 12.0 11.3 L (12.0-16.0) g/dL Hct 36.6 35.0 L (36.0-46.0) % MCV 86.5 (80.0-98.0) fL MCH 28.4 (27.0-32.0) pg MCHC 32.8 (31.0-37.0) g/dL RDW Std Deviation 45.1 (28.0-62.0) fl RDW Coeff of So 14 (11.0-15.0) % Plt Count 179 (150-400) K/uL MPV 11.70 (7.40-12.00) fL Neut % (Auto) 57.7 (48.0-80.0) % Lymph % (Auto) 28.3 (16.0-40.0) % [place] % (Auto) 6.4 (0.0-15.0) % Eos % (Auto) 7.0 (0.0-7.0) % Baso % (Auto) 0.6 (0.0-1.5) % Neut # (Auto) 4.2 (1.4-5.7) K/uL Lymph # (Auto) 2.1 (0.6-2.4) K/uL [place] # (Auto) 0.5 (0.0-0.8) K/uL Eos # (Auto) 0.5 (0.0-0.7) K/uL Baso # (Auto) 0.0 (0.0-0.1) K/uL Nucleated RBC % 0.0 /100WBC Nucleated RBCs # 0 K/uL Sodium (136-146) mmol/L Potassium (3.5-5.1) mmol/L Chloride (98-110) mmol/L Carbon Dioxide (21-31) mmol/L BUN (6.0-23.0) mg/dL Creatinine (0.6-1.5) mg/dL Est Cr Clr Drug Dosing mL/min Estimated GFR (MDRD) ml/min Glucose (60-110) mg/dL POC Glucose 221 H (60-110) mg/dL Calcium (8.8-10.8) mg/dL Magnesium (1.5-2.3) mEq/L Blood Type Antibody Screen 08/29/17 Range/Units 05:04 WBC (4.0-11.0) K/uL RBC (4.30-5.90) M/uL Hgb (12.0-16.0) g/dL Hct (36.0-46.0) % MCV (80.0-98.0) fL MCH (27.0-32.0) pg MCHC (31.0-37.0) g/dL RDW Std Deviation (28.0-62.0) fl RDW Coeff of So (11.0-15.0) % Plt Count (150-400) K/uL MPV (7.40-12.00) fL Neut % (Auto) (48.0-80.0) % Lymph % (Auto) (16.0-40.0) % [place] % (Auto) (0.0-15.0) % Eos % (Auto) (0.0-7.0) % Baso % (Auto) (0.0-1.5) % Neut # (Auto) (1.4-5.7) K/uL Lymph # (Auto) (0.6-2.4) K/uL [place] # (Auto) (0.0-0.8) K/uL Eos # (Auto) (0.0-0.7) K/uL Baso # (Auto) (0.0-0.1) K/uL Nucleated RBC % /100WBC Nucleated RBCs # K/uL Sodium 142 (136-146) mmol/L Potassium 2.8 L (3.5-5.1) mmol/L Chloride 97 L (98-110) mmol/L Carbon Dioxide 32 H (21-31) mmol/L BUN 13 (6.0-23.0) mg/dL Creatinine 1.2 (0.6-1.5) mg/dL Est Cr Clr Drug Dosing 34.99 mL/min Estimated GFR (MDRD) 44.5 ml/min Glucose 134 H (60-110) mg/dL POC Glucose (60-110) mg/dL Calcium 8.9 (8.8-10.8) mg/dL Magnesium 2.2 (1.5-2.3) mEq/L Blood Type Antibody Screen Chriss Results Last 24 Hrs: Microbiology 08/28/17 12:05 Gram Stain - Final Leg, Left Med Orders - Current: Current Medications Hydrocodone Bitart/Acetaminophen ([place] 325-10 Mg) 1 - 2 tab PO Q4H PRN PRN Reason: Pain Last Admin: 08/28/17 20:13 Dose: 2 tab Al Hydroxide/Mg Hydroxide (Mag-Al Plus) 30 ml PO Q4H PRN PRN Reason: indigestion Albuterol (Ventolin Hfa) 0 gm INH Q4H PRN PRN Reason: Shortness of Breath Alprazolam (Xanax) 1 mg PO BID PRN PRN Reason: Anxiety Last Admin: 08/28/17 21:18 Dose: 1 mg Amitriptyline HCl (Elavil) 10 mg PO BID [facility] MARIE Last Admin: 08/28/17 20:17 Dose: 10 mg Aspirin (Aspirin) 325 mg PO BID [facility] Bisacodyl (Dulcolax) 10 mg RECTAL DAILY PRN PRN Reason: Constipation Bumetanide (Bumex) 3 mg PO BID@0800,1400 [facility] Carvedilol (Coreg) 3.125 mg PO BID [facility] Last Admin: 08/28/17 20:14 Dose: 3.125 mg Diphenhydramine HCl (Benadryl) 25 - 50 mg PO Q6H PRN PRN Reason: Itching Docusate Sodium (Colace) 100 mg PO BID [facility] Last Admin: 08/28/17 20:17 Dose: 100 mg Duloxetine HCl (Cymbalta) 60 mg PO DAILY [facility] Fentanyl (Sublimaze) 50 mcg IVPUSH Q5M PRN PRN Reason: Pain (severe 7-10) Stop: 08/29/17 12:18 Last Admin: 08/28/17 13:40 Dose: 50 mcg Metolazone (Zaroxolyn) 2.5 mg PO DAILY [facility] Midodrine (Midodrine) 5 mg PO TID [facility] Last Admin: 08/29/17 05:49 Dose: 5 mg Ondansetron HCl (Zofran) 4 mg IV Q6HR PRN PRN Reason: NAUSEA/VOMITING Potassium Chloride (Klor-Con M20) 60 meq PO TIDMEALS [facility] Last Admin: 08/28/17 17:26 Dose: 60 meq Pregabalin (Lyrica) 200 mg PO TID [facility] Last Admin: 08/29/17 05:50 Dose: 200 mg Scopolamine (Transderm-Scop) 1.5 mg TRDERM ONARRIVE [facility] Last Admin: 08/28/17 10:41 Dose: 1.5 mg Simvastatin (Zocor) 10 mg PO BEDTIME [facility] Last Admin: 08/28/17 20:17 Dose: 10 mg Discontinued Medications Acetaminophen (Tylenol Extra Strength) 1,000 mg PO ONARRIVE [facility] Last Admin: 08/28/17 10:42 Dose: 1,000 mg Albuterol (Ventolin Hfa) 2 gm INH Q4H PRN PRN Reason: Shortness of Breath Bumetanide (Bumex) 3 mg PO 08/28/17@2100 [facility] Stop: 08/28/17 21:01 Last Admin: 08/28/17 20:24 Dose: 3 mg Celecoxib (Celebrex) 200 mg PO DAILY [facility] Ephedrine Sulfate (Ephedrine Sulfate) Confirm Administered Dose 50 mg .ROUTE .STK-MED ONE Stop: 08/28/17 10:57 Famotidine (Pepcid) 40 mg IVPUSH ONARRIVE [facility] Last Admin: 08/28/17 10:40 Dose: 40 mg Fentanyl (Sublimaze) Confirm Administered Dose 200 mcg .ROUTE .STK-MED ONE Stop: 08/28/17 10:56 Cefazolin Sodium/Dextrose 2 gm (/ Premix) 50 mls @ 100 mls/hr IV ONCALL [facility] Ropivacaine 49.25 ml/Ketorolac Tromethamine 30 mg/Epinephrine HCl 0.5 mg/ Clonidine HCl 80 mcg/ Sodium Chloride 100 mls @ 50 mls/min INJECT ONETIME ONE Stop: 08/28/17 06:01 Last Admin: 08/28/17 14:17 Dose: Not Given Lactated Ringer's (Ringers, Lactated) 1,000 mls @ 100 mls/hr IV ASDIRECTED [facility] Last Admin: 08/28/17 10:35 Dose: 100 mls/hr Cefazolin Sodium/Dextrose 2 gm (/ Premix) 50 mls @ 100 mls/hr IV Q8HR [facility] Stop: 08/28/17 22:29 Last Admin: 08/28/17 17:27 Dose: Not Given Magnesium Sulfate 4 gm/ Premix 100 mls @ 50 mls/hr IV ONETIME ONE Stop: 08/28/17 17:23 Last Admin: 08/28/17 15:50 Dose: 50 mls/hr Cefazolin Sodium/Dextrose 2 gm (/ Premix) 50 mls @ 100 mls/hr IV Q8H [facility] Stop: 08/29/17 01:44 Last Infusion: 08/29/17 02:03 Dose: Infused Ketorolac Tromethamine (Toradol) 30 mg IVPUSH ONARRIVE [facility] Last Admin: 08/28/17 10:42 Dose: 30 mg Ketorolac Tromethamine (Toradol) 30 mg IVPUSH Q6H [facility] Stop: 08/29/17 09:00 Lidocaine (Xylocaine-Mpf 2%) Confirm Administered Dose 10 ml .ROUTE .STK-MED ONE Stop: 08/28/17 10:56 Midazolam HCl (Versed 1 Mg/Ml) Confirm Administered Dose 2 mg .ROUTE .STK-MED ONE Stop: 08/28/17 10:56 Midodrine (Midodrine) 5 mg PO TID [facility] Last Admin: 08/28/17 15:34 Dose: Not Given Ondansetron HCl (Zofran) Confirm Administered Dose 4 mg .ROUTE .STK-MED ONE Stop: 08/28/17 10:57 Ondansetron HCl (Zofran) Confirm Administered Dose 4 mg .ROUTE .STK-MED ONE Stop: 08/28/17 13:02 Last Admin: 08/28/17 14:18 Dose: Not Given Oxycodone HCl (Oxycontin) 20 mg PO ONARRIVE [facility] Last Admin: 08/28/17 10:43 Dose: 20 mg Propofol (Diprivan 20 Ml) Confirm Administered Dose 400 mg .ROUTE .STK-MED ONE Stop: 08/28/17 10:56 Tranexamic Acid (Cyklokapron) 4,000 mg IV SEECOMMENT [facility] Tranexamic Acid (Cyklokapron) Confirm Administered Dose 4,000 mg .ROUTE .STK- MED ONE Stop: 08/28/17 07:17 - Exam Wound/Incisions: Dressing Dry and Intact General: Alert, Oriented HEENT: Pupils Equal, Pupils Reactive Neck: Trachea Midline Lungs: Normal Respiratory Effort Cardiovascular: Regular Rate Extremities: Other (Left anterior tibialis, extensor hallucis longus and gastrocnemius strength +5/5 bilaterally. Sensation intact. Dorsalis pedis and posterior tibial pulses +2 bilaterally. ) Neurological: No New Focal Deficit Psy/Mental Status: Alert, Normal Affect, Normal Mood - Problem List Review Problem List Initiated/Reviewed/Updated: Yes - My Orders Last 24 Hours: Active Orders 24 hr Category Date Time Status Patient Status [ADT] Routine ADT 08/28/17 09:57 Active Activity as Tolerated [RC] .Routine Care 08/28/17 12:36 Active Height and Weight [RC] DAILY Care 08/28/17 15:31 Active Intake and Output Strict [RC] Q4H Care 08/28/17 15:31 Active Intake and Output [RC] Q12H Care 08/28/17 12:36 Inactive Neurovascular Check [RC] Q2HR Care 08/28/17 12:36 Active Notify Provider Consults [RC] ASDIRECTED Care 08/28/17 13:20 Active Notify Provider Vital Signs [RC] ASDIRECTED Care 08/28/17 12:36 Active Overnight Pulse Oximetry [RC] Click to Edit Care 08/28/17 13:20 Active RT Incentive Spirometry [RC] ASDIRECTED Care 08/28/17 12:36 Active Telemetry Monitoring [Cardiac Monitoring] [RC] Q8H Care 08/28/17 15:24 Active Vital Signs [RC] Q4H Care 08/28/17 12:36 Active Consult to Physician [CONS] Routine Cons 08/28/17 13:19 Active PT Evaluation and Treatment [CONS] Routine Cons 08/28/17 12:36 Active Heart Healthy Diet [DIET] Diet 08/28/17 Dinner Active BASIC METABOLIC PANEL,BMP [CHEM] DAILY Lab 08/30/17 05:00 Ordered CULTURE ANAEROBIC [RM] Routine Lab 08/28/17 12:05 Results CULTURE WOUND [RM] Routine Lab 08/28/17 12:05 Results GRAM STAIN [RM] Routine Lab 08/28/17 12:05 Results HEMOGLOBIN/HEMATOCRIT,HH [HEME] DAILY Lab 08/30/17 07:00 Ordered HEMOGLOBIN/HEMATOCRIT,HH [HEME] DAILY Lab 08/31/17 07:00 Ordered MAGNESIUM [CHEM] DAILY Lab 08/30/17 05:00 Ordered ALPRAZolam [Xanax] Med 08/28/17 14:29 Active 1 mg PO BID PRN Acetaminophen/HYDROcodone [[place] 325-10 MG] Med 08/28/17 12:37 Active 1 - 2 tab PO Q4H PRN Albuterol [Ventolin HFA] Med 08/28/17 14:42 Active 0 gm INH Q4H PRN Alum Hydrox/Mag Hydrox/Simeth [Mag-Al Plus] Med 08/28/17 12:37 Active 30 ml PO Q4H PRN Amitriptyline [Elavil] Med 08/28/17 21:00 Active 10 mg PO BID Aspirin Med 08/29/17 09:00 Active 325 mg PO BID Bisacodyl [Dulcolax] Med 08/28/17 12:37 Active 10 mg RECTAL DAILY PRN Bumetanide [Bumex] Med 08/29/17 08:00 Active 3 mg PO BID@0800,1400 Carvedilol [Coreg] Med 08/28/17 21:00 Active 3.125 mg PO BID DULoxetine [Cymbalta] Med 08/29/17 09:00 Active 60 mg PO DAILY Docusate Sodium [Colace] Med 08/28/17 21:00 Active 100 mg PO BID Metolazone [Zaroxolyn] Med 08/29/17 09:00 Active 2.5 mg PO DAILY Midodrine Med 08/28/17 14:37 Active 5 mg PO TID Ondansetron [Zofran] Med 08/28/17 12:36 Active 4 mg IV Q6HR PRN Potassium Chloride [Klor-Con M20] Med 08/28/17 17:30 Active 60 meq PO TIDMEALS Pregabalin [Lyrica] Med 08/28/17 22:00 Active 200 mg PO TID Simvastatin [Zocor] Med 08/28/17 21:00 Active 10 mg PO BEDTIME diphenhydrAMINE [Benadryl] Med 08/28/17 12:37 Active 25 - 50 mg PO Q6H PRN fentaNYL [Sublimaze] Med 08/28/17 12:18 Active 50 mcg IVPUSH Q5M PRN Ice Therapy [OM.PC] Routine Oth 08/28/17 12:36 Ordered Pulse Oximetry Continuous Monitoring [OM.PC] Routine Oth 08/28/17 13:20 Ordered Medication Orders Hydrocodone Bitart/Acetaminophen ([place] 325-10 Mg) 1 - 2 tab PO Q4H PRN PRN Reason: Pain Last Admin: 08/28/17 20:13 Dose: 2 tab Admin: 08/28/17 14:40 Dose: 2 tab Al Hydroxide/Mg Hydroxide (Mag-Al Plus) 30 ml PO Q4H PRN PRN Reason: indigestion Albuterol (Ventolin Hfa) 0 gm INH Q4H PRN PRN Reason: Shortness of Breath Alprazolam (Xanax) 1 mg PO BID PRN PRN Reason: Anxiety Last Admin: 08/28/17 21:18 Dose: 1 mg Amitriptyline HCl (Elavil) 10 mg PO BID [facility] Last Admin: 08/28/17 20:17 Dose: 10 mg Aspirin (Aspirin) 325 mg PO BID [facility] Bisacodyl (Dulcolax) 10 mg RECTAL DAILY PRN PRN Reason: Constipation Bumetanide (Bumex) 3 mg PO BID@0800,1400 [facility] Carvedilol (Coreg) 3.125 mg PO BID [facility] Last Admin: 08/28/17 20:14 Dose: 3.125 mg Diphenhydramine HCl (Benadryl) 25 - 50 mg PO Q6H PRN PRN Reason: Itching Docusate Sodium (Colace) 100 mg PO BID [facility] Last Admin: 08/28/17 20:17 Dose: 100 mg Duloxetine HCl (Cymbalta) 60 mg PO DAILY [facility] Fentanyl (Sublimaze) 50 mcg IVPUSH Q5M PRN PRN Reason: Pain (severe 7-10) Stop: 08/29/17 12:18 Last Admin: 08/28/17 13:40 Dose: 50 mcg Admin: 08/28/17 13:33 Dose: 50 mcg Metolazone (Zaroxolyn) 2.5 mg PO DAILY [facility] Midodrine (Midodrine) 5 mg PO TID [facility] Last Admin: 08/29/17 05:49 Dose: 5 mg Admin: 08/28/17 21:19 Dose: 5 mg Admin: 08/28/17 14:48 Dose: 5 mg Ondansetron HCl (Zofran) 4 mg IV Q6HR PRN PRN Reason: NAUSEA/VOMITING Potassium Chloride (Klor-Con M20) 60 meq PO TIDMEALS [facility] Last Admin: 08/28/17 17:26 Dose: 60 meq Pregabalin (Lyrica) 200 mg PO TID [facility] Last Admin: 08/29/17 05:50 Dose: 200 mg Admin: 08/28/17 21:18 Dose: 200 mg Scopolamine (Transderm-Scop) 1.5 mg TRDERM ONARRIVE [facility] Last Admin: 08/28/17 10:41 Dose: 1.5 mg Simvastatin (Zocor) 10 mg PO BEDTIME [facility] Last Admin: 08/28/17 20:17 Dose: 10 mg - Assessment Assessment (Free Text/Narrative):: Patient up to chair this AM. Pain well-controlled. Tolerating diet. Ambulating. VSS. Hgb 11.3. UO 355 mL. - Plan Plan (Free Text/Narrative):: Continue PT. Continue pain control. Encourage PO fluid intake. Discontinue boyd and LRs. Start Aspirin 325 mg PO BID for DVT prophylaxis. Discharge home this afternoon. <HawthornePriscila R - Last Filed: 08/29/17 17:26> - Patient Data Vitals - Most Recent: Last Vital Signs Temp 97.1 F 08/29/17 11:35 Pulse 71 08/29/17 04:00 Resp 18 08/29/17 11:35 BP 100/60 08/29/17 11:35 Pulse Ox 94 L 08/29/17 07:34 I&O - Last 24 Hours: Intake & Output 08/29/17 08/29/17 08/29/17 06:59 14:59 22:59 Intake Total 300 1670 620 Output Total 1800 1400 900 Balance -1500 270 -280 Lab Results Last 24 Hrs: Laboratory Results - last 24 hr 08/28/17 08/29/17 08/29/17 Range/Units 20:39 05:04 05:04 Hgb 11.3 L (12.0-16.0) g/dL Hct 35.0 L (36.0-46.0) % Sodium 142 (136-146) mmol/L Potassium 2.8 L (3.5-5.1) mmol/L Chloride 97 L (98-110) mmol/L Carbon Dioxide 32 H (21-31) mmol/L BUN 13 (6.0-23.0) mg/dL Creatinine 1.2 (0.6-1.5) mg/dL Est Cr Clr Drug Dosing 34.99 mL/min Estimated GFR (MDRD) 44.5 ml/min Glucose 134 H (60-110) mg/dL POC Glucose 221 H (60-110) mg/dL Calcium 8.9 (8.8-10.8) mg/dL Magnesium 2.2 (1.5-2.3) mEq/L 08/29/17 08/29/17 08/29/17 Range/Units 05:50 11:11 14:00 Hgb (12.0-16.0) g/dL Hct (36.0-46.0) % Sodium 141 (136-146) mmol/L Potassium 3.1 L (3.5-5.1) mmol/L Chloride 94 L (98-110) mmol/L Carbon Dioxide 35 H (21-31) mmol/L BUN 14 (6.0-23.0) mg/dL Creatinine 1.2 (0.6-1.5) mg/dL Est Cr Clr Drug Dosing 34.99 mL/min Estimated GFR (MDRD) 44.5 ml/min Glucose 122 H (60-110) mg/dL POC Glucose 161 H 173 H (60-110) mg/dL Calcium 9.1 (8.8-10.8) mg/dL Magnesium (1.5-2.3) mEq/L Chriss Results Last 24 Hrs: Microbiology 08/28/17 12:05 Gram Stain - Final Leg, Left Med Orders - Current: Current Medications Hydrocodone Bitart/Acetaminophen ([place] 325-10 Mg) 1 - 2 tab PO Q4H PRN PRN Reason: Pain Last Admin: 08/29/17 11:16 Dose: 2 tab Al Hydroxide/Mg Hydroxide (Mag-Al Plus) 30 ml PO Q4H PRN PRN Reason: indigestion Albuterol (Ventolin Hfa) 0 gm INH Q4H PRN PRN Reason: Shortness of Breath Alprazolam (Xanax) 1 mg PO BID PRN PRN Reason: Anxiety Last Admin: 08/28/17 21:18 Dose: 1 mg Amitriptyline HCl (Elavil) 10 mg PO BID [facility] Last Admin: 08/29/17 08:44 Dose: 10 mg Aspirin (Aspirin) 325 mg PO BID [facility] Last Admin: 08/29/17 08:43 Dose: 325 mg Bisacodyl (Dulcolax) 10 mg RECTAL DAILY PRN PRN Reason: Constipation Bumetanide (Bumex) 3 mg PO BID@0800,1400 [facility] Last Admin: 08/29/17 13:45 Dose: 3 mg Carvedilol (Coreg) 3.125 mg PO BID [facility] Last Admin: 08/29/17 08:43 Dose: 3.125 mg Diphenhydramine HCl (Benadryl) 25 - 50 mg PO Q6H PRN PRN Reason: Itching Docusate Sodium (Colace) 100 mg PO BID [facility] Last Admin: 08/29/17 08:42 Dose: 100 mg Duloxetine HCl (Cymbalta) 60 mg PO DAILY [facility] Last Admin: 08/29/17 08:44 Dose: 60 mg Metolazone (Zaroxolyn) 2.5 mg PO DAILY [facility] Last Admin: 08/29/17 08:44 Dose: 2.5 mg Midodrine (Midodrine) 5 mg PO TID [facility] Last Admin: 08/29/17 13:48 Dose: 5 mg Ondansetron HCl (Zofran) 4 mg IV Q6HR PRN PRN Reason: NAUSEA/VOMITING Potassium Chloride (Klor-Con M20) 60 meq PO TIDMEALS [facility] Last Admin: 08/29/17 11:48 Dose: 60 meq Pregabalin (Lyrica) 200 mg PO TID [facility] Last Admin: 08/29/17 13:46 Dose: 200 mg Scopolamine (Transderm-Scop) 1.5 mg TRDERM ONARRIVE [facility] Last Admin: 08/28/17 10:41 Dose: 1.5 mg Simvastatin (Zocor) 10 mg PO BEDTIME [facility] Last Admin: 08/28/17 20:17 Dose: 10 mg Sodium Chloride (Saline Flush) 10 ml FLUSH ASDIRECTED PRN PRN Reason: Keep Vein Open Sodium Chloride (Saline Flush) 2.5 ml FLUSH ASDIRECTED PRN PRN Reason: Keep Vein Open Discontinued Medications Acetaminophen (Tylenol Extra Strength) 1,000 mg PO ONARRIVE [facility] Last Admin: 08/28/17 10:42 Dose: 1,000 mg Albuterol (Ventolin Hfa) 2 gm INH Q4H PRN PRN Reason: Shortness of Breath Bumetanide (Bumex) 3 mg PO 08/28/17@2100 [facility] Stop: 08/28/17 21:01 Last Admin: 08/28/17 20:24 Dose: 3 mg Celecoxib (Celebrex) 200 mg PO DAILY [facility] Ephedrine Sulfate (Ephedrine Sulfate) Confirm Administered Dose 50 mg .ROUTE .STK-MED ONE Stop: 08/28/17 10:57 Famotidine (Pepcid) 40 mg IVPUSH ONARRIVE [facility] Last Admin: 08/28/17 10:40 Dose: 40 mg Fentanyl (Sublimaze) Confirm Administered Dose 200 mcg .ROUTE .STK-MED ONE Stop: 08/28/17 10:56 Fentanyl (Sublimaze) 50 mcg IVPUSH Q5M PRN PRN Reason: Pain (severe 7-10) Stop: 08/29/17 12:18 Last Admin: 08/28/17 13:40 Dose: 50 mcg Cefazolin Sodium/Dextrose 2 gm (/ Premix) 50 mls @ 100 mls/hr IV ONCALL [facility] Ropivacaine 49.25 ml/Ketorolac Tromethamine 30 mg/Epinephrine HCl 0.5 mg/ Clonidine HCl 80 mcg/ Sodium Chloride 100 mls @ 50 mls/min INJECT ONETIME ONE Stop: 08/28/17 06:01 Last Admin: 08/28/17 14:17 Dose: Not Given Lactated Ringer's (Ringers, Lactated) 1,000 mls @ 100 mls/hr IV ASDIRECTED [facility] Last Admin: 08/28/17 10:35 Dose: 100 mls/hr Cefazolin Sodium/Dextrose 2 gm (/ Premix) 50 mls @ 100 mls/hr IV Q8HR [facility] Stop: 08/28/17 22:29 Last Admin: 08/28/17 17:27 Dose: Not Given Magnesium Sulfate 4 gm/ Premix 100 mls @ 50 mls/hr IV ONETIME ONE Stop: 08/28/17 17:23 Last Admin: 08/28/17 15:50 Dose: 50 mls/hr Cefazolin Sodium/Dextrose 2 gm (/ Premix) 50 mls @ 100 mls/hr IV Q8H [facility] Stop: 08/29/17 01:44 Last Infusion: 08/29/17 02:03 Dose: Infused Potassium Chloride 40 meq/ (Sodium Chloride) 520 mls @ 100 mls/hr IV ONETIME ONE Stop: 08/29/17 13:31 Last Admin: 08/29/17 09:05 Dose: 100 mls/hr Ketorolac Tromethamine (Toradol) 30 mg IVPUSH ONARRIVE [facility] Last Admin: 08/28/17 10:42 Dose: 30 mg Ketorolac Tromethamine (Toradol) 30 mg IVPUSH Q6H [facility] Stop: 08/29/17 09:00 Lidocaine (Xylocaine-Mpf 2%) Confirm Administered Dose 10 ml .ROUTE .STK-MED ONE Stop: 08/28/17 10:56 Midazolam HCl (Versed 1 Mg/Ml) Confirm Administered Dose 2 mg .ROUTE .STK-MED ONE Stop: 08/28/17 10:56 Midodrine (Midodrine) 5 mg PO TID [facility] Last Admin: 08/28/17 15:34 Dose: Not Given Ondansetron HCl (Zofran) Confirm Administered Dose 4 mg .ROUTE .STK-MED ONE Stop: 08/28/17 10:57 Ondansetron HCl (Zofran) Confirm Administered Dose 4 mg .ROUTE .STK-MED ONE Stop: 08/28/17 13:02 Last Admin: 08/28/17 14:18 Dose: Not Given Oxycodone HCl (Oxycontin) 20 mg PO ONARRIVE [facility] Last Admin: 08/28/17 10:43 Dose: 20 mg Propofol (Diprivan 20 Ml) Confirm Administered Dose 400 mg .ROUTE .STK-MED ONE Stop: 08/28/17 10:56 Tranexamic Acid (Cyklokapron) 4,000 mg IV SEECOMMENT [facility] Tranexamic Acid (Cyklokapron) Confirm Administered Dose 4,000 mg .ROUTE .STK- MED ONE Stop: 08/28/17 07:17 - My Orders Last 24 Hours: Active Orders 24 hr Category Date Time Status Ready for Discharge [RC] PER UNIT ROUTINE Care 08/29/17 09:35 Inactive Remove Boyd Catheter [Urinary Catheter Removal] [RC] Care 08/29/17 08:08 Active Per Unit Routine BASIC METABOLIC PANEL,BMP [CHEM] DAILY Lab 08/30/17 05:00 Ordered HEMOGLOBIN/HEMATOCRIT,HH [HEME] DAILY Lab 08/30/17 07:00 Ordered HEMOGLOBIN/HEMATOCRIT,HH [HEME] DAILY Lab 08/31/17 07:00 Ordered MAGNESIUM [CHEM] DAILY Lab 08/30/17 05:00 Ordered Amitriptyline [Elavil] Med 08/28/17 21:00 Active 10 mg PO BID Aspirin Med 08/29/17 09:00 Active 325 mg PO BID Bumetanide [Bumex] Med 08/29/17 08:00 Active 3 mg PO BID@0800,1400 Carvedilol [Coreg] Med 08/28/17 21:00 Active 3.125 mg PO BID DULoxetine [Cymbalta] Med 08/29/17 09:00 Active 60 mg PO DAILY Docusate Sodium [Colace] Med 08/28/17 21:00 Active 100 mg PO BID Metolazone [Zaroxolyn] Med 08/29/17 09:00 Active 2.5 mg PO DAILY Potassium Chloride [Klor-Con M20] Med 08/28/17 17:30 Active 60 meq PO TIDMEALS Pregabalin [Lyrica] Med 08/28/17 22:00 Active 200 mg PO TID Simvastatin [Zocor] Med 08/28/17 21:00 Active 10 mg PO BEDTIME Sodium Chloride 0.9% [Saline Flush] Med 08/29/17 08:08 Active 10 ml FLUSH ASDIRECTED PRN Sodium Chloride 0.9% [Saline Flush] Med 08/29/17 08:08 Active 2.5 ml FLUSH ASDIRECTED PRN Convert IV to Saline Lock [OM.PC] Routine Oth 08/29/17 08:08 Ordered Medication Orders Hydrocodone Bitart/Acetaminophen ([place] 325-10 Mg) 1 - 2 tab PO Q4H PRN PRN Reason: Pain Last Admin: 08/29/17 11:16 Dose: 2 tab Admin: 08/28/17 20:13 Dose: 2 tab Admin: 08/28/17 14:40 Dose: 2 tab Al Hydroxide/Mg Hydroxide (Mag-Al Plus) 30 ml PO Q4H PRN PRN Reason: indigestion Albuterol (Ventolin Hfa) 0 gm INH Q4H PRN PRN Reason: Shortness of Breath Alprazolam (Xanax) 1 mg PO BID PRN PRN Reason: Anxiety Last Admin: 08/28/17 21:18 Dose: 1 mg Amitriptyline HCl (Elavil) 10 mg PO BID [facility] Last Admin: 08/29/17 08:44 Dose: 10 mg Admin: 08/28/17 20:17 Dose: 10 mg Aspirin (Aspirin) 325 mg PO BID [facility] Last Admin: 08/29/17 08:43 Dose: 325 mg Bisacodyl (Dulcolax) 10 mg RECTAL DAILY PRN PRN Reason: Constipation Bumetanide (Bumex) 3 mg PO BID@0800,1400 [facility] Last Admin: 08/29/17 13:45 Dose: 3 mg Admin: 08/29/17 08:46 Dose: 3 mg Carvedilol (Coreg) 3.125 mg PO BID [facility] Last Admin: 08/29/17 08:43 Dose: 3.125 mg Admin: 08/28/17 20:14 Dose: 3.125 mg Diphenhydramine HCl (Benadryl) 25 - 50 mg PO Q6H PRN PRN Reason: Itching Docusate Sodium (Colace) 100 mg PO BID [facility] Last Admin: 08/29/17 08:42 Dose: 100 mg Admin: 08/28/17 20:17 Dose: 100 mg Duloxetine HCl (Cymbalta) 60 mg PO DAILY [facility] Last Admin: 08/29/17 08:44 Dose: 60 mg Metolazone (Zaroxolyn) 2.5 mg PO DAILY [facility] Last Admin: 08/29/17 08:44 Dose: 2.5 mg Midodrine (Midodrine) 5 mg PO TID [facility] Last Admin: 08/29/17 13:48 Dose: 5 mg Admin: 08/29/17 05:49 Dose: 5 mg Admin: 08/28/17 21:19 Dose: 5 mg Admin: 08/28/17 14:48 Dose: 5 mg Ondansetron HCl (Zofran) 4 mg IV Q6HR PRN PRN Reason: NAUSEA/VOMITING Potassium Chloride (Klor-Con M20) 60 meq PO TIDMEALS [facility] Last Admin: 08/29/17 11:48 Dose: 60 meq Admin: 08/29/17 08:41 Dose: 60 meq Admin: 08/28/17 17:26 Dose: 60 meq Pregabalin (Lyrica) 200 mg PO TID [facility] Last Admin: 08/29/17 13:46 Dose: 200 mg Admin: 08/29/17 05:50 Dose: 200 mg Admin: 08/28/17 21:18 Dose: 200 mg Scopolamine (Transderm-Scop) 1.5 mg TRDERM ONARRIVE [facility] Last Admin: 08/28/17 10:41 Dose: 1.5 mg Simvastatin (Zocor) 10 mg PO BEDTIME [facility] Last Admin: 08/28/17 20:17 Dose: 10 mg Sodium Chloride (Saline Flush) 10 ml FLUSH ASDIRECTED PRN PRN Reason: Keep Vein Open Sodium Chloride (Saline Flush) 2.5 ml FLUSH ASDIRECTED PRN PRN Reason: Keep Vein Open - Plan Plan (Free Text/Narrative):: 1730 [patient seen and examined. Agree with above. Patient had some confusion from pain meds, better now. Will plan to keep overnight for observation. Continue PT tomorrow. Hgb stable. Discharge tomorrow.
[2017-08-29] MEDS ORDERED: Potassium Chloride 40 MEQ in Sodium Chloride 0.9% 500 ML IV ONE (08:20)
[2017-08-29] MEDS: Potassium Chloride 20 MEQ Tab.ER PO SCH ×3 (08:41→18:06)
[2017-08-29] MEDS: Docusate Sodium 100 MG Cap PO SCH ×3 (08:42→20:20)
[2017-08-29] MEDS: Aspirin 325 MG Tab PO SCH ×3 (08:43→20:21)
[2017-08-29] MEDS: Carvedilol 3.125 MG Tab PO SCH ×2 (08:43→20:19)
[2017-08-29] MEDS: DULoxetine 60 MG Cap PO SCH (08:44)
[2017-08-29] MEDS: Amitriptyline 10 MG Tab PO SCH ×2 (08:44→20:19)
[2017-08-29] MEDS: Metolazone 5 MG Tab PO SCH (08:44)
[2017-08-29] MEDS: Bumetanide 1 MG Tab PO SCH ×2 (08:46→13:45)
[2017-08-29] MEDS: Acetaminophen/HYDROcodone 325-10 MG Tab PO PRN ×2 (11:16→18:06)
--- NOTE | 2017-08-29 11:29 | PCM.CONSN ---
- General Info Date of Service: 08/29/17 Admission Dx/Problem (Free Text): Admission Diagnosis/Problem Admission Diagnosis/Problem Revision of total knee joint Subjective Update: Patient sitting up in chair this morning, eating breakfast. Denies chest pain or SOB. No palpitations of muscle cramping. She reports pain to left knee ok. No other complaints. Functional Status: Reports: Pain Controlled, Tolerating Diet, Ambulating - Review of Systems General: Reports: No Symptoms. Denies: Fever HEENT: Reports: No Symptoms. Denies: Sore Throat Pulmonary: Denies: No Symptoms, Shortness of Breath, Cough, Sputum Cardiovascular: Reports: No Symptoms. Denies: Chest Pain, Palpitations, Edema Gastrointestinal: Reports: No Symptoms. Denies: Abdominal Pain Musculoskeletal: Reports: Joint Pain (L knee, doing ok with pain meds) Neurological: Reports: No Symptoms Psychiatric: Reports: No Symptoms - Patient Data Vitals - Most Recent: Last Vital Signs Temp 97.5 F 08/29/17 07:34 Pulse 71 08/29/17 04:00 Resp 18 08/29/17 07:34 BP 101/63 08/29/17 08:43 Pulse Ox 94 L 08/29/17 07:34 Weight - Most Recent: 104 kg I&O - Last 24 Hours: Intake & Output 08/28/17 08/29/17 08/29/17 22:59 06:59 14:59 Intake Total 1444 225 5377 Output Total 230 1800 150 Balance 1100 -1500 1370 Lab Results Last 24 Hours: Laboratory Results - last 24 hr 08/28/17 08/28/17 08/28/17 Range/Units 13:45 14:27 14:27 WBC 7.24 (4.0-11.0) K/uL RBC 4.23 L (4.30-5.90) M/uL Hgb 12.0 (12.0-16.0) g/dL Hct 36.6 (36.0-46.0) % MCV 86.5 (80.0-98.0) fL MCH 28.4 (27.0-32.0) pg MCHC 32.8 (31.0-37.0) g/dL RDW Std Deviation 45.1 (28.0-62.0) fl RDW Coeff of So 14 (11.0-15.0) % Plt Count 179 (150-400) K/uL MPV 11.70 (7.40-12.00) fL Neut % (Auto) 57.7 (48.0-80.0) % Lymph % (Auto) 28.3 (16.0-40.0) % [place] % (Auto) 6.4 (0.0-15.0) % Eos % (Auto) 7.0 (0.0-7.0) % Baso % (Auto) 0.6 (0.0-1.5) % Neut # (Auto) 4.2 (1.4-5.7) K/uL Lymph # (Auto) 2.1 (0.6-2.4) K/uL [place] # (Auto) 0.5 (0.0-0.8) K/uL Eos # (Auto) 0.5 (0.0-0.7) K/uL Baso # (Auto) 0.0 (0.0-0.1) K/uL Nucleated RBC % 0.0 /100WBC Nucleated RBCs # 0 K/uL Sodium 142 (136-146) mmol/L Potassium 2.8 L (3.5-5.1) mmol/L Chloride 97 L (98-110) mmol/L Carbon Dioxide 31 (21-31) mmol/L BUN 13 (6.0-23.0) mg/dL Creatinine 1.1 (0.6-1.5) mg/dL Est Cr Clr Drug Dosing 38.18 mL/min Estimated GFR (MDRD) 49.2 ml/min Glucose 131 H (60-110) mg/dL POC Glucose 126 H (60-110) mg/dL Calcium 8.9 (8.8-10.8) mg/dL Magnesium 1.4 L (1.5-2.3) mEq/L 08/28/17 08/29/17 08/29/17 Range/Units 20:39 05:04 05:04 WBC (4.0-11.0) K/uL RBC (4.30-5.90) M/uL Hgb 11.3 L (12.0-16.0) g/dL Hct 35.0 L (36.0-46.0) % MCV (80.0-98.0) fL MCH (27.0-32.0) pg MCHC (31.0-37.0) g/dL RDW Std Deviation (28.0-62.0) fl RDW Coeff of So (11.0-15.0) % Plt Count (150-400) K/uL MPV (7.40-12.00) fL Neut % (Auto) (48.0-80.0) % Lymph % (Auto) (16.0-40.0) % [place] % (Auto) (0.0-15.0) % Eos % (Auto) (0.0-7.0) % Baso % (Auto) (0.0-1.5) % Neut # (Auto) (1.4-5.7) K/uL Lymph # (Auto) (0.6-2.4) K/uL [place] # (Auto) (0.0-0.8) K/uL Eos # (Auto) (0.0-0.7) K/uL Baso # (Auto) (0.0-0.1) K/uL Nucleated RBC % /100WBC Nucleated RBCs # K/uL Sodium 142 (136-146) mmol/L Potassium 2.8 L (3.5-5.1) mmol/L Chloride 97 L (98-110) mmol/L Carbon Dioxide 32 H (21-31) mmol/L BUN 13 (6.0-23.0) mg/dL Creatinine 1.2 (0.6-1.5) mg/dL Est Cr Clr Drug Dosing 34.99 mL/min Estimated GFR (MDRD) 44.5 ml/min Glucose 134 H (60-110) mg/dL POC Glucose 221 H (60-110) mg/dL Calcium 8.9 (8.8-10.8) mg/dL Magnesium 2.2 (1.5-2.3) mEq/L 08/29/17 08/29/17 Range/Units 05:50 11:11 WBC (4.0-11.0) K/uL RBC (4.30-5.90) M/uL Hgb (12.0-16.0) g/dL Hct (36.0-46.0) % MCV (80.0-98.0) fL MCH (27.0-32.0) pg MCHC (31.0-37.0) g/dL RDW Std Deviation (28.0-62.0) fl RDW Coeff of So (11.0-15.0) % Plt Count (150-400) K/uL MPV (7.40-12.00) fL Neut % (Auto) (48.0-80.0) % Lymph % (Auto) (16.0-40.0) % [place] % (Auto) (0.0-15.0) % Eos % (Auto) (0.0-7.0) % Baso % (Auto) (0.0-1.5) % Neut # (Auto) (1.4-5.7) K/uL Lymph # (Auto) (0.6-2.4) K/uL [place] # (Auto) (0.0-0.8) K/uL Eos # (Auto) (0.0-0.7) K/uL Baso # (Auto) (0.0-0.1) K/uL Nucleated RBC % /100WBC Nucleated RBCs # K/uL Sodium (136-146) mmol/L Potassium (3.5-5.1) mmol/L Chloride (98-110) mmol/L Carbon Dioxide (21-31) mmol/L BUN (6.0-23.0) mg/dL Creatinine (0.6-1.5) mg/dL Est Cr Clr Drug Dosing mL/min Estimated GFR (MDRD) ml/min Glucose (60-110) mg/dL POC Glucose 161 H 173 H (60-110) mg/dL Calcium (8.8-10.8) mg/dL Magnesium (1.5-2.3) mEq/L Chriss Results Last 24 Hours: Microbiology 08/28/17 12:05 Gram Stain - Final Leg, Left Med Orders - Current: Current Medications Hydrocodone Bitart/Acetaminophen ([place] 325-10 Mg) 1 - 2 tab PO Q4H PRN PRN Reason: Pain Last Admin: 08/29/17 11:16 Dose: 2 tab Al Hydroxide/Mg Hydroxide (Mag-Al Plus) 30 ml PO Q4H PRN PRN Reason: indigestion Albuterol (Ventolin Hfa) 0 gm INH Q4H PRN PRN Reason: Shortness of Breath Alprazolam (Xanax) 1 mg PO BID PRN PRN Reason: Anxiety Last Admin: 08/28/17 21:18 Dose: 1 mg Amitriptyline HCl (Elavil) 10 mg PO BID [facility] Last Admin: 08/29/17 08:44 Dose: 10 mg Aspirin (Aspirin) 325 mg PO BID [facility] Last Admin: 08/29/17 08:43 Dose: 325 mg Bisacodyl (Dulcolax) 10 mg RECTAL DAILY PRN PRN Reason: Constipation Bumetanide (Bumex) 3 mg PO BID@0800,1400 [facility] Last Admin: 08/29/17 08:46 Dose: 3 mg Carvedilol (Coreg) 3.125 mg PO BID [facility] Last Admin: 08/29/17 08:43 Dose: 3.125 mg Diphenhydramine HCl (Benadryl) 25 - 50 mg PO Q6H PRN PRN Reason: Itching Docusate Sodium (Colace) 100 mg PO BID [facility] Last Admin: 08/29/17 08:42 Dose: 100 mg Duloxetine HCl (Cymbalta) 60 mg PO DAILY [facility] Last Admin: 08/29/17 08:44 Dose: 60 mg Potassium Chloride 40 meq/ (Sodium Chloride) 520 mls @ 100 mls/hr IV ONETIME ONE Stop: 08/29/17 13:31 Last Admin: 08/29/17 09:05 Dose: 100 mls/hr Metolazone (Zaroxolyn) 2.5 mg PO DAILY [facility] Last Admin: 08/29/17 08:44 Dose: 2.5 mg Midodrine (Midodrine) 5 mg PO TID [facility] Last Admin: 08/29/17 05:49 Dose: 5 mg Ondansetron HCl (Zofran) 4 mg IV Q6HR PRN PRN Reason: NAUSEA/VOMITING Potassium Chloride (Klor-Con M20) 60 meq PO TIDMEALS [facility] Last Admin: 08/29/17 08:41 Dose: 60 meq Pregabalin (Lyrica) 200 mg PO TID [facility] Last Admin: 08/29/17 05:50 Dose: 200 mg Scopolamine (Transderm-Scop) 1.5 mg TRDERM ONARRIVE [facility] Last Admin: 08/28/17 10:41 Dose: 1.5 mg Simvastatin (Zocor) 10 mg PO BEDTIME [facility] Last Admin: 08/28/17 20:17 Dose: 10 mg Sodium Chloride (Saline Flush) 10 ml FLUSH ASDIRECTED PRN PRN Reason: Keep Vein Open Sodium Chloride (Saline Flush) 2.5 ml FLUSH ASDIRECTED PRN PRN Reason: Keep Vein Open Discontinued Medications Acetaminophen (Tylenol Extra Strength) 1,000 mg PO ONARRIVE [facility] Last Admin: 08/28/17 10:42 Dose: 1,000 mg Albuterol (Ventolin Hfa) 2 gm INH Q4H PRN PRN Reason: Shortness of Breath Bumetanide (Bumex) 3 mg PO 08/28/17@2100 [facility] Stop: 08/28/17 21:01 Last Admin: 08/28/17 20:24 Dose: 3 mg Celecoxib (Celebrex) 200 mg PO DAILY [facility] Ephedrine Sulfate (Ephedrine Sulfate) Confirm Administered Dose 50 mg .ROUTE .STK-MED ONE Stop: 08/28/17 10:57 Famotidine (Pepcid) 40 mg IVPUSH ONARRIVE [facility] Last Admin: 08/28/17 10:40 Dose: 40 mg Fentanyl (Sublimaze) Confirm Administered Dose 200 mcg .ROUTE .STK-MED ONE Stop: 08/28/17 10:56 Fentanyl (Sublimaze) 50 mcg IVPUSH Q5M PRN PRN Reason: Pain (severe 7-10) Stop: 08/29/17 12:18 Last Admin: 08/28/17 13:40 Dose: 50 mcg Cefazolin Sodium/Dextrose 2 gm (/ Premix) 50 mls @ 100 mls/hr IV ONCALL [facility] Ropivacaine 49.25 ml/Ketorolac Tromethamine 30 mg/Epinephrine HCl 0.5 mg/ Clonidine HCl 80 mcg/ Sodium Chloride 100 mls @ 50 mls/min INJECT ONETIME ONE Stop: 08/28/17 06:01 Last Admin: 08/28/17 14:17 Dose: Not Given Lactated Ringer's (Ringers, Lactated) 1,000 mls @ 100 mls/hr IV ASDIRECTED [facility] Last Admin: 08/28/17 10:35 Dose: 100 mls/hr Cefazolin Sodium/Dextrose 2 gm (/ Premix) 50 mls @ 100 mls/hr IV Q8HR [facility] Stop: 08/28/17 22:29 Last Admin: 08/28/17 17:27 Dose: Not Given Magnesium Sulfate 4 gm/ Premix 100 mls @ 50 mls/hr IV ONETIME ONE Stop: 08/28/17 17:23 Last Admin: 08/28/17 15:50 Dose: 50 mls/hr Cefazolin Sodium/Dextrose 2 gm (/ Premix) 50 mls @ 100 mls/hr IV Q8H [facility] Stop: 08/29/17 01:44 Last Infusion: 08/29/17 02:03 Dose: Infused Ketorolac Tromethamine (Toradol) 30 mg IVPUSH ONARRIVE [facility] Last Admin: 08/28/17 10:42 Dose: 30 mg Ketorolac Tromethamine (Toradol) 30 mg IVPUSH Q6H [facility] Stop: 08/29/17 09:00 Lidocaine (Xylocaine-Mpf 2%) Confirm Administered Dose 10 ml .ROUTE .STK-MED ONE Stop: 08/28/17 10:56 Midazolam HCl (Versed 1 Mg/Ml) Confirm Administered Dose 2 mg .ROUTE .STK-MED ONE Stop: 08/28/17 10:56 Midodrine (Midodrine) 5 mg PO TID [facility] Last Admin: 08/28/17 15:34 Dose: Not Given Ondansetron HCl (Zofran) Confirm Administered Dose 4 mg .ROUTE .STK-MED ONE Stop: 08/28/17 10:57 Ondansetron HCl (Zofran) Confirm Administered Dose 4 mg .ROUTE .STK-MED ONE Stop: 08/28/17 13:02 Last Admin: 08/28/17 14:18 Dose: Not Given Oxycodone HCl (Oxycontin) 20 mg PO ONARRIVE [facility] Last Admin: 08/28/17 10:43 Dose: 20 mg Propofol (Diprivan 20 Ml) Confirm Administered Dose 400 mg .ROUTE .STK-MED ONE Stop: 08/28/17 10:56 Tranexamic Acid (Cyklokapron) 4,000 mg IV SEECOMMENT [facility] Tranexamic Acid (Cyklokapron) Confirm Administered Dose 4,000 mg .ROUTE .STK- MED ONE Stop: 08/28/17 07:17 - Exam General: Alert, Oriented, Cooperative, No Acute Distress, Other (Some confusion noted, may be related to narcotics. ) Neck: Supple Lungs: Clear to Auscultation, Normal Respiratory Effort Cardiovascular: Regular Rate, Regular Rhythm Extremities: Normal Inspection, Normal Range of Motion, Non-Tender, No Pedal Edema, Normal Capillary Refill Neurological: No New Focal Deficit Psy/Mental Status: Normal Affect, Normal Mood Consult PN Assessment/Plan Procedures: Procedures BODY FLUID CELL COUNT (01/24/17) BONE IMAGING 3 PHASE (03/08/17) CHEST X-RAY 1 VIEW FRONTAL (11/18/16) CULTURE OTHR SPECIMN AEROBIC (01/24/17) DRAIN/INJ JOINT/BURSA W/O US (12/08/16) EXAM SYNOVIAL FLUID CRYSTALS (01/24/17) LUNG VENTILAT&PERFUS IMAGING (11/18/16) OFFICE/OUTPATIENT VISIT NEW (09/16/16) OFFICE/OUTPATIENT VISIT NEW (03/26/14) ORGANIC ACID SINGLE QUANT (09/16/16) PROTEIN E-PHORESIS SERUM (09/16/16) SMEAR GRAM STAIN (01/24/17) URINALYSIS NONAUTO W/SCOPE (03/26/14) VITAMIN B-12 (09/16/16) X-RAY EXAM KNEE 4 OR MORE (12/08/16) X-RAY EXAM OF KNEE 3 (06/28/16) (1) S/P revision of total knee SNOMED Code(s): 754991709 Code(s): Z96.659 - PRESENCE OF UNSPECIFIED ARTIFICIAL KNEE JOINT Current Visit: Yes Qualifiers: Laterality: left Qualified Code(s): Z96.652 - Presence of left artificial knee joint (2) HTN (hypertension) SNOMED Code(s): 68115410 Code(s): I10 - ESSENTIAL (PRIMARY) HYPERTENSION Current Visit: Yes Qualifiers: Hypertension type: essential hypertension Qualified Code(s): I10 - Essential (primary) hypertension (3) Hypertensive heart disease SNOMED Code(s): 24856358 Code(s): I11.9 - HYPERTENSIVE HEART DISEASE WITHOUT HEART FAILURE Current Visit: Yes Qualifiers: Heart failure presence: with heart failure Qualified Code(s): I11.0 - Hypertensive heart disease with heart failure (4) Diastolic CHF SNOMED Code(s): 195101512 Code(s): I50.30 - UNSPECIFIED DIASTOLIC (CONGESTIVE) HEART FAILURE Current Visit: Yes Qualifiers: Congestive heart failure chronicity: chronic Qualified Code(s): I50.32 - Chronic diastolic (congestive) heart failure (5) Hx of diabetes mellitus SNOMED Code(s): 023648085 Code(s): Z86.39 - PERSONAL HISTORY OF ENDO, NUTRITIONAL AND METABOLIC DISEASE Current Visit: Yes (6) Depression SNOMED Code(s): 41629291 Code(s): F32.9 - MAJOR DEPRESSIVE DISORDER, SINGLE EPISODE, UNSPECIFIED Current Visit: Yes Qualifiers: Depression Type: unspecified Qualified Code(s): F32.9 - Major depressive disorder, single episode, unspecified (7) Anxiety SNOMED Code(s): 58433115 Code(s): F41.9 - ANXIETY DISORDER, UNSPECIFIED Current Visit: Yes (8) Hypokalemia SNOMED Code(s): 84059201 Code(s): E87.6 - HYPOKALEMIA Current Visit: Yes (9) Hypomagnesemia SNOMED Code(s): 344507811 Code(s): E83.42 - HYPOMAGNESEMIA Current Visit: Yes (10) Morbid obesity with BMI of 40.0-44.9, adult SNOMED Code(s): 652687827 Code(s): E66.01 - MORBID (SEVERE) OBESITY DUE TO EXCESS CALORIES; Z68.41 - BODY MASS INDEX (BMI) 40.0-44.9, ADULT Current Visit: Yes Problem List Initiated/Reviewed/Updated: Yes My Orders Last 24 Hours: My Active Orders 08/28/17 14:29 ALPRAZolam [Xanax] 1 mg PO BID PRN 08/28/17 14:37 Midodrine 5 mg PO TID 08/28/17 14:42 Albuterol [Ventolin HFA] 0 gm INH Q4H PRN 08/28/17 15:24 Telemetry Monitoring [Cardiac Monitoring] [RC] Q8H 08/28/17 15:31 Height and Weight [RC] DAILY Intake and Output Strict [RC] Q4H 08/28/17 17:30 Potassium Chloride [Klor-Con M20] 60 meq PO TIDMEALS 08/28/17 21:00 Amitriptyline [Elavil] 10 mg PO BID Carvedilol [Coreg] 3.125 mg PO BID Simvastatin [Zocor] 10 mg PO BEDTIME 08/28/17 22:00 Pregabalin [Lyrica] 200 mg PO TID 08/28/17 Dinner Heart Healthy Diet [DIET] 08/29/17 08:00 Bumetanide [Bumex] 3 mg PO BID@0800,1400 08/29/17 08:20 Potassium Chloride 40 meq Sodium Chloride 0.9% [Normal Saline] 500 ml IV ONETIME 08/29/17 09:00 DULoxetine [Cymbalta] 60 mg PO DAILY Metolazone [Zaroxolyn] 2.5 mg PO DAILY 08/29/17 14:00 BMP [BASIC METABOLIC PANEL,BMP] [CHEM] Routine 08/30/17 05:00 BASIC METABOLIC PANEL,BMP [CHEM] DAILY MAGNESIUM [CHEM] DAILY Plan: This 67 year old female admitted with revision of L TKA. Hospitalist service consulted for medical management due to comorbidities. 1. S/P revision L TKA: Orders per Dr. Maria, Discontinued Celebrex and Toradol due to CAD. 2. HTN: Continue Coreg 3.125 mg BID. 3. Diastolic CHF: Stable, DAILY weight and STRICT I/O, low Na diet. Continue Bumex and Metolazone. Also continue Midodrine for hypotension. 4. Hyokalemia/hypomagnesemia: K+ remains 2.8 today, will give 60 po as usual with meals, will also give 40 meq IV this morning and recheck in afternoon. Continue KCL PO 60 MEQ TID. Magnesium 2.2 today. Continue Telemetry monitoring due to hypokalemia. 5. CAD:Continue ASA and Atorvastatin. Stop Celebrex and Toradol due to CAD and cardiac risk. VTE prophlyaxis: Would recommend when Ortho deems appropriate, currently ASA 325 BID ordered.
[2017-08-29] MEDS: Simvastatin 10 MG Tab PO SCH (20:19)
[2017-08-29] MEDS: ALPRAZolam 0.5 MG Tab PO PRN (20:19)
[2017-08-30] MEDS ORDERED: ALPRAZolam 0.5 MG Tab PO PRN (01:33)
--- NOTE | 2017-08-30 01:33 | PCM.CONSN ---
- General Info Date of Service: 08/30/17 Subjective Update: I was called to see patient as she had a reported oxygen saturation transcutaneous of 50's %. However, her hands were reportedly cold to touch and when the oxygen saturation monitor was moved to her ear lobe, the oxygen saturation was immediately noted to be improved to the mid 80's %. She was reportedly quite drowsy after receiving xanax earlier tonight. She denies cough or subjective dyspnea - Patient Data Vitals - Most Recent: Last Vital Signs Temp 97.7 F 08/29/17 20:00 Pulse 76 08/29/17 20:19 Resp 18 08/29/17 20:00 BP 110/60 08/29/17 20:19 Pulse Ox 92 L 08/29/17 20:00 Weight - Most Recent: 104 kg I&O - Last 24 Hours: Intake & Output 08/29/17 08/29/17 08/30/17 14:59 22:59 06:59 Intake Total 1670 1220 Output Total 1400 1750 Balance 270 -530 Lab Results Last 24 Hours: Laboratory Results - last 24 hr 08/28/17 08/29/17 08/29/17 Range/Units 20:39 05:04 05:04 WBC (4.0-11.0) K/uL RBC (4.30-5.90) M/uL Hgb 11.3 L (12.0-16.0) g/dL Hct 35.0 L (36.0-46.0) % MCV (80.0-98.0) fL MCH (27.0-32.0) pg MCHC (31.0-37.0) g/dL RDW Std Deviation (28.0-62.0) fl RDW Coeff of So (11.0-15.0) % Plt Count (150-400) K/uL MPV (7.40-12.00) fL Add Manual Diff Neutrophils % (Manual) (48.0-80.0) % Band Neutrophils % % Lymphocytes % (Manual) (16.0-40.0) % Monocytes % (Manual) (0.0-15.0) % Eosinophils % (Manual) (0.0-7.0) % Basophils % (Manual) (0.0-1.5) % Absolute Seg Neuts (1.4-5.7) Band Neutrophils # Lymphocytes # (Manual) (0.6-2.4) Monocytes # (Manual) (0.0-0.8) Eosinophils # (Manual) (0.0-0.7) Basophils # (Manual) (0.0-0.1) Sodium 142 (136-146) mmol/L Potassium 2.8 L (3.5-5.1) mmol/L Chloride 97 L (98-110) mmol/L Carbon Dioxide 32 H (21-31) mmol/L BUN 13 (6.0-23.0) mg/dL Creatinine 1.2 (0.6-1.5) mg/dL Est Cr Clr Drug Dosing 34.99 mL/min Estimated GFR (MDRD) 44.5 ml/min Glucose 134 H (60-110) mg/dL POC Glucose 221 H (60-110) mg/dL Calcium 8.9 (8.8-10.8) mg/dL Magnesium 2.2 (1.5-2.3) mEq/L 08/29/17 08/29/17 08/29/17 Range/Units 05:50 11:11 14:00 WBC (4.0-11.0) K/uL RBC (4.30-5.90) M/uL Hgb (12.0-16.0) g/dL Hct (36.0-46.0) % MCV (80.0-98.0) fL MCH (27.0-32.0) pg MCHC (31.0-37.0) g/dL RDW Std Deviation (28.0-62.0) fl RDW Coeff of So (11.0-15.0) % Plt Count (150-400) K/uL MPV (7.40-12.00) fL Add Manual Diff Neutrophils % (Manual) (48.0-80.0) % Band Neutrophils % % Lymphocytes % (Manual) (16.0-40.0) % Monocytes % (Manual) (0.0-15.0) % Eosinophils % (Manual) (0.0-7.0) % Basophils % (Manual) (0.0-1.5) % Absolute Seg Neuts (1.4-5.7) Band Neutrophils # Lymphocytes # (Manual) (0.6-2.4) Monocytes # (Manual) (0.0-0.8) Eosinophils # (Manual) (0.0-0.7) Basophils # (Manual) (0.0-0.1) Sodium 141 (136-146) mmol/L Potassium 3.1 L (3.5-5.1) mmol/L Chloride 94 L (98-110) mmol/L Carbon Dioxide 35 H (21-31) mmol/L BUN 14 (6.0-23.0) mg/dL Creatinine 1.2 (0.6-1.5) mg/dL Est Cr Clr Drug Dosing 34.99 mL/min Estimated GFR (MDRD) 44.5 ml/min Glucose 122 H (60-110) mg/dL POC Glucose 161 H 173 H (60-110) mg/dL Calcium 9.1 (8.8-10.8) mg/dL Magnesium (1.5-2.3) mEq/L 08/29/17 08/29/17 08/30/17 Range/Units 17:41 20:25 00:51 WBC 10.21 (4.0-11.0) K/uL RBC 4.31 (4.30-5.90) M/uL Hgb 12.2 (12.0-16.0) g/dL Hct 38.0 (36.0-46.0) % MCV 88.2 (80.0-98.0) fL MCH 28.3 (27.0-32.0) pg MCHC 32.1 (31.0-37.0) g/dL RDW Std Deviation 44.2 (28.0-62.0) fl RDW Coeff of So 14 (11.0-15.0) % Plt Count 175 (150-400) K/uL MPV 11.70 (7.40-12.00) fL Add Manual Diff YES Neutrophils % (Manual) 64 (48.0-80.0) % Band Neutrophils % 3 % Lymphocytes % (Manual) 26 (16.0-40.0) % Monocytes % (Manual) 3 (0.0-15.0) % Eosinophils % (Manual) 3 (0.0-7.0) % Basophils % (Manual) 1 (0.0-1.5) % Absolute Seg Neuts 6.5 H (1.4-5.7) Band Neutrophils # 0.3 Lymphocytes # (Manual) 2.7 H (0.6-2.4) Monocytes # (Manual) 0.3 (0.0-0.8) Eosinophils # (Manual) 0.3 (0.0-0.7) Basophils # (Manual) 0.1 (0.0-0.1) Sodium (136-146) mmol/L Potassium (3.5-5.1) mmol/L Chloride (98-110) mmol/L Carbon Dioxide (21-31) mmol/L BUN (6.0-23.0) mg/dL Creatinine (0.6-1.5) mg/dL Est Cr Clr Drug Dosing mL/min Estimated GFR (MDRD) ml/min Glucose (60-110) mg/dL POC Glucose 110 177 H (60-110) mg/dL Calcium (8.8-10.8) mg/dL Magnesium (1.5-2.3) mEq/L 08/30/17 Range/Units 00:51 WBC (4.0-11.0) K/uL RBC (4.30-5.90) M/uL Hgb (12.0-16.0) g/dL Hct (36.0-46.0) % MCV (80.0-98.0) fL MCH (27.0-32.0) pg MCHC (31.0-37.0) g/dL RDW Std Deviation (28.0-62.0) fl RDW Coeff of So (11.0-15.0) % Plt Count (150-400) K/uL MPV (7.40-12.00) fL Add Manual Diff Neutrophils % (Manual) (48.0-80.0) % Band Neutrophils % % Lymphocytes % (Manual) (16.0-40.0) % Monocytes % (Manual) (0.0-15.0) % Eosinophils % (Manual) (0.0-7.0) % Basophils % (Manual) (0.0-1.5) % Absolute Seg Neuts (1.4-5.7) Band Neutrophils # Lymphocytes # (Manual) (0.6-2.4) Monocytes # (Manual) (0.0-0.8) Eosinophils # (Manual) (0.0-0.7) Basophils # (Manual) (0.0-0.1) Sodium 138 (136-146) mmol/L Potassium 3.3 L (3.5-5.1) mmol/L Chloride 93 L (98-110) mmol/L Carbon Dioxide 29 (21-31) mmol/L BUN 17 (6.0-23.0) mg/dL Creatinine 1.2 (0.6-1.5) mg/dL Est Cr Clr Drug Dosing 34.99 mL/min Estimated GFR (MDRD) 44.5 ml/min Glucose 126 H (60-110) mg/dL POC Glucose (60-110) mg/dL Calcium 9.4 (8.8-10.8) mg/dL Magnesium (1.5-2.3) mEq/L Med Orders - Current: Current Medications Hydrocodone Bitart/Acetaminophen (Dwarf 325-10 Mg) 1 - 2 tab PO Q4H PRN PRN Reason: Pain Last Admin: 08/29/17 18:06 Dose: 2 tab Al Hydroxide/Mg Hydroxide (Mag-Al Plus) 30 ml PO Q4H PRN PRN Reason: indigestion Albuterol (Ventolin Hfa) 0 gm INH Q4H PRN PRN Reason: Shortness of Breath Alprazolam (Xanax) 1 mg PO BID PRN PRN Reason: Anxiety Last Admin: 08/29/17 20:19 Dose: 1 mg Amitriptyline HCl (Elavil) 10 mg PO BID [facility] Last Admin: 08/29/17 20:19 Dose: 10 mg Aspirin (Aspirin) 325 mg PO BID [facility] Last Admin: 08/29/17 20:21 Dose: Not Given Bisacodyl (Dulcolax) 10 mg RECTAL DAILY PRN PRN Reason: Constipation Bumetanide (Bumex) 3 mg PO BID@0800,1400 [facility] Last Admin: 08/29/17 13:45 Dose: 3 mg Carvedilol (Coreg) 3.125 mg PO BID [facility] Last Admin: 08/29/17 20:19 Dose: 3.125 mg Diphenhydramine HCl (Benadryl) 25 - 50 mg PO Q6H PRN PRN Reason: Itching Docusate Sodium (Colace) 100 mg PO BID [facility] Last Admin: 08/29/17 20:20 Dose: Not Given Duloxetine HCl (Cymbalta) 60 mg PO DAILY [facility] Last Admin: 08/29/17 08:44 Dose: 60 mg Levofloxacin/Dextrose 750 mg/ (Premix) 150 mls @ 100 mls/hr IV Q48H [facility] Metolazone (Zaroxolyn) 2.5 mg PO DAILY [facility] Last Admin: 08/29/17 08:44 Dose: 2.5 mg Midodrine (Midodrine) 5 mg PO TID [facility] Last Admin: 08/29/17 22:02 Dose: 5 mg Ondansetron HCl (Zofran) 4 mg IV Q6HR PRN PRN Reason: NAUSEA/VOMITING Potassium Chloride (Klor-Con M20) 60 meq PO TIDMEALS [facility] Last Admin: 08/29/17 18:06 Dose: 60 meq Pregabalin (Lyrica) 200 mg PO TID [facility] Last Admin: 08/29/17 22:02 Dose: 200 mg Scopolamine (Transderm-Scop) 1.5 mg TRDERM ONARRIVE [facility] Last Admin: 08/28/17 10:41 Dose: 1.5 mg Simvastatin (Zocor) 10 mg PO BEDTIME [facility] Last Admin: 08/29/17 20:19 Dose: 10 mg Sodium Chloride (Saline Flush) 10 ml FLUSH ASDIRECTED PRN PRN Reason: Keep Vein Open Sodium Chloride (Saline Flush) 2.5 ml FLUSH ASDIRECTED PRN PRN Reason: Keep Vein Open Discontinued Medications Acetaminophen (Tylenol Extra Strength) 1,000 mg PO ONARRIVE [facility] Last Admin: 08/28/17 10:42 Dose: 1,000 mg Albuterol (Ventolin Hfa) 2 gm INH Q4H PRN PRN Reason: Shortness of Breath Bumetanide (Bumex) 3 mg PO 08/28/17@2100 [facility] Stop: 08/28/17 21:01 Last Admin: 08/28/17 20:24 Dose: 3 mg Celecoxib (Celebrex) 200 mg PO DAILY [facility] Ephedrine Sulfate (Ephedrine Sulfate) Confirm Administered Dose 50 mg .ROUTE .STK-MED ONE Stop: 08/28/17 10:57 Famotidine (Pepcid) 40 mg IVPUSH ONARRIVE [facility] Last Admin: 08/28/17 10:40 Dose: 40 mg Fentanyl (Sublimaze) Confirm Administered Dose 200 mcg .ROUTE .STK-MED ONE Stop: 08/28/17 10:56 Fentanyl (Sublimaze) 50 mcg IVPUSH Q5M PRN PRN Reason: Pain (severe 7-10) Stop: 08/29/17 12:18 Last Admin: 08/28/17 13:40 Dose: 50 mcg Cefazolin Sodium/Dextrose 2 gm (/ Premix) 50 mls @ 100 mls/hr IV ONCALL [facility] Ropivacaine 49.25 ml/Ketorolac Tromethamine 30 mg/Epinephrine HCl 0.5 mg/ Clonidine HCl 80 mcg/ Sodium Chloride 100 mls @ 50 mls/min INJECT ONETIME ONE Stop: 08/28/17 06:01 Last Admin: 08/28/17 14:17 Dose: Not Given Lactated Ringer's (Ringers, Lactated) 1,000 mls @ 100 mls/hr IV ASDIRECTED [facility] Last Admin: 08/28/17 10:35 Dose: 100 mls/hr Cefazolin Sodium/Dextrose 2 gm (/ Premix) 50 mls @ 100 mls/hr IV Q8HR [facility] Stop: 08/28/17 22:29 Last Admin: 08/28/17 17:27 Dose: Not Given Magnesium Sulfate 4 gm/ Premix 100 mls @ 50 mls/hr IV ONETIME ONE Stop: 08/28/17 17:23 Last Admin: 08/28/17 15:50 Dose: 50 mls/hr Cefazolin Sodium/Dextrose 2 gm (/ Premix) 50 mls @ 100 mls/hr IV Q8H [facility] Stop: 08/29/17 01:44 Last Infusion: 08/29/17 02:03 Dose: Infused Potassium Chloride 40 meq/ (Sodium Chloride) 520 mls @ 100 mls/hr IV ONETIME ONE Stop: 08/29/17 13:31 Last Admin: 08/29/17 09:05 Dose: 100 mls/hr Ketorolac Tromethamine (Toradol) 30 mg IVPUSH ONARRIVE [facility] Last Admin: 08/28/17 10:42 Dose: 30 mg Ketorolac Tromethamine (Toradol) 30 mg IVPUSH Q6H [facility] Stop: 08/29/17 09:00 Lidocaine (Xylocaine-Mpf 2%) Confirm Administered Dose 10 ml .ROUTE .STK-MED ONE Stop: 08/28/17 10:56 Midazolam HCl (Versed 1 Mg/Ml) Confirm Administered Dose 2 mg .ROUTE .STK-MED ONE Stop: 08/28/17 10:56 Midodrine (Midodrine) 5 mg PO TID [facility] Last Admin: 08/28/17 15:34 Dose: Not Given Ondansetron HCl (Zofran) Confirm Administered Dose 4 mg .ROUTE .STK-MED ONE Stop: 08/28/17 10:57 Ondansetron HCl (Zofran) Confirm Administered Dose 4 mg .ROUTE .STK-MED ONE Stop: 08/28/17 13:02 Last Admin: 08/28/17 14:18 Dose: Not Given Oxycodone HCl (Oxycontin) 20 mg PO ONARRIVE [facility] Last Admin: 08/28/17 10:43 Dose: 20 mg Propofol (Diprivan 20 Ml) Confirm Administered Dose 400 mg .ROUTE .STK-MED ONE Stop: 08/28/17 10:56 Tranexamic Acid (Cyklokapron) 4,000 mg IV SEECOMMENT [facility] Tranexamic Acid (Cyklokapron) Confirm Administered Dose 4,000 mg .ROUTE .STK- MED ONE Stop: 08/28/17 07:17 - Exam General: Alert, Oriented Lungs: Clear to Auscultation, Normal Respiratory Effort Cardiovascular: Regular Rate, Regular Rhythm GI/Abdominal Exam: Soft Extremities: Other (trace pretibial edema; normal distal capillary refill) Neurological: Other (she awakens but is quite drowsy) Physical Findings Comments:: oxygen saturation is 92% on 2liters/minute nasal canula CXR: right sided infiltrate Consult PN Assessment/Plan Procedures: Procedures BODY FLUID CELL COUNT (01/24/17) BONE IMAGING 3 PHASE (03/08/17) CHEST X-RAY 1 VIEW FRONTAL (11/18/16) CULTURE OTHR SPECIMN AEROBIC (01/24/17) DRAIN/INJ JOINT/BURSA W/O US (12/08/16) EXAM SYNOVIAL FLUID CRYSTALS (01/24/17) LUNG VENTILAT&PERFUS IMAGING (11/18/16) OFFICE/OUTPATIENT VISIT NEW (09/16/16) OFFICE/OUTPATIENT VISIT NEW (03/26/14) ORGANIC ACID SINGLE QUANT (09/16/16) PROTEIN E-PHORESIS SERUM (09/16/16) SMEAR GRAM STAIN (01/24/17) URINALYSIS NONAUTO W/SCOPE (03/26/14) VITAMIN B-12 (09/16/16) X-RAY EXAM KNEE 4 OR MORE (12/08/16) X-RAY EXAM OF KNEE 3 (06/28/16) (1) Pneumonia SNOMED Code(s): 073826447 Code(s): J18.9 - PNEUMONIA, UNSPECIFIED ORGANISM Current Visit: Yes (2) Status post knee replacement SNOMED Code(s): 462533787 Code(s): Z96.659 - PRESENCE OF UNSPECIFIED ARTIFICIAL KNEE JOINT Current Visit: Yes (3) Diastolic CHF SNOMED Code(s): 484614607 Code(s): I50.30 - UNSPECIFIED DIASTOLIC (CONGESTIVE) HEART FAILURE Current Visit: Yes Qualifiers: Congestive heart failure chronicity: chronic Qualified Code(s): I50.32 - Chronic diastolic (congestive) heart failure (4) HTN (hypertension) SNOMED Code(s): 71244236 Code(s): I10 - ESSENTIAL (PRIMARY) HYPERTENSION Current Visit: Yes Qualifiers: Hypertension type: essential hypertension Qualified Code(s): I10 - Essential (primary) hypertension (5) Hx of diabetes mellitus SNOMED Code(s): 742428268 Code(s): Z86.39 - PERSONAL HISTORY OF ENDO, NUTRITIONAL AND METABOLIC DISEASE Current Visit: Yes (6) Hypertensive heart disease SNOMED Code(s): 27256343 Code(s): I11.9 - HYPERTENSIVE HEART DISEASE WITHOUT HEART FAILURE Current Visit: Yes Qualifiers: Heart failure presence: with heart failure Qualified Code(s): I11.0 - Hypertensive heart disease with heart failure (7) Hypokalemia SNOMED Code(s): 40537302 Code(s): E87.6 - HYPOKALEMIA Current Visit: Yes Problem List Initiated/Reviewed/Updated: Yes My Orders Last 24 Hours: My Active Orders 08/30/17 00:35 CXR [Chest 1V Frontal] [CR] Routine 08/30/17 01:30 Levofloxacin/Dextrose 5%-Water [Levaquin in D5W 750 MG/150 ML] 750 mg Premix Bag 1 bag IV Q48H Plan: add levaquin decrease benzodiazepine dosing close monitoring addendum: monitor shows sinus rhythm with pac's and pvc's. Payam Otoole MD
[2017-08-30] MEDS ORDERED: Levofloxacin/Dextrose 5%-Water 750 MG in Premix Bag 1 BAG IV SCH (02:00)
[2017-08-30] MEDS: Pregabalin 200 MG Cap PO SCH ×3 (06:09→23:25)
[2017-08-30] MEDS: Midodrine 5 MG Tab PO SCH ×3 (06:09→23:25)
--- NOTE | 2017-08-30 08:20 | PCM.SURGPN ---
<Lora Rodriguez - Last Filed: 08/30/17 09:21> - General Info Date of Service: 08/30/17 Date of Surgery/Procedure: 08/28/17 POD#: 2 Functional Status: Reports: Pain Controlled, Tolerating Diet, Ambulating, Urinating - Review of Systems General: Reports: No Symptoms Pulmonary: Reports: Shortness of Breath Cardiovascular: Reports: No Symptoms Gastrointestinal: Reports: No Symptoms Genitourinary: Reports: No Symptoms Musculoskeletal: Reports: Leg Pain, Joint Pain, Joint Swelling Neurological: Reports: No Symptoms Psychiatric: Reports: No Symptoms - Patient Data Vitals - Most Recent: Last Vital Signs Temp 36.1 C 08/30/17 04:00 Pulse 68 08/30/17 04:00 Resp 18 08/30/17 04:00 BP 93/50 L 08/30/17 04:00 Pulse Ox 97 08/30/17 04:00 Weight - Most Recent: 104 kg I&O - Last 24 Hours: Intake & Output 08/29/17 08/30/17 08/30/17 22:59 06:59 14:59 Intake Total 1220 850 Output Total 1750 600 Balance -530 250 Lab Results Last 24 Hrs: Laboratory Results - last 24 hr 08/29/17 08/29/17 08/29/17 Range/Units 05:50 11:11 14:00 WBC (4.0-11.0) K/uL RBC (4.30-5.90) M/uL Hgb (12.0-16.0) g/dL Hct (36.0-46.0) % MCV (80.0-98.0) fL MCH (27.0-32.0) pg MCHC (31.0-37.0) g/dL RDW Std Deviation (28.0-62.0) fl RDW Coeff of So (11.0-15.0) % Plt Count (150-400) K/uL MPV (7.40-12.00) fL Neut % (Auto) (48.0-80.0) % Lymph % (Auto) (16.0-40.0) % [place] % (Auto) (0.0-15.0) % Eos % (Auto) (0.0-7.0) % Baso % (Auto) (0.0-1.5) % Neut # (Auto) (1.4-5.7) K/uL Lymph # (Auto) (0.6-2.4) K/uL [place] # (Auto) (0.0-0.8) K/uL Eos # (Auto) (0.0-0.7) K/uL Baso # (Auto) (0.0-0.1) K/uL Add Manual Diff Neutrophils % (Manual) (48.0-80.0) % Band Neutrophils % % Lymphocytes % (Manual) (16.0-40.0) % Monocytes % (Manual) (0.0-15.0) % Eosinophils % (Manual) (0.0-7.0) % Basophils % (Manual) (0.0-1.5) % Nucleated RBC % /100WBC Absolute Seg Neuts (1.4-5.7) Band Neutrophils # Lymphocytes # (Manual) (0.6-2.4) Monocytes # (Manual) (0.0-0.8) Eosinophils # (Manual) (0.0-0.7) Basophils # (Manual) (0.0-0.1) Nucleated RBCs # K/uL Sodium 141 (136-146) mmol/L Potassium 3.1 L (3.5-5.1) mmol/L Chloride 94 L (98-110) mmol/L Carbon Dioxide 35 H (21-31) mmol/L BUN 14 (6.0-23.0) mg/dL Creatinine 1.2 (0.6-1.5) mg/dL Est Cr Clr Drug Dosing 34.99 mL/min Estimated GFR (MDRD) 44.5 ml/min Glucose 122 H (60-110) mg/dL POC Glucose 161 H 173 H (60-110) mg/dL Calcium 9.1 (8.8-10.8) mg/dL Magnesium (1.5-2.3) mEq/L 08/29/17 08/29/17 08/30/17 Range/Units 17:41 20:25 00:51 WBC 10.21 (4.0-11.0) K/uL RBC 4.31 (4.30-5.90) M/uL Hgb 12.2 (12.0-16.0) g/dL Hct 38.0 (36.0-46.0) % MCV 88.2 (80.0-98.0) fL MCH 28.3 (27.0-32.0) pg MCHC 32.1 (31.0-37.0) g/dL RDW Std Deviation 44.2 (28.0-62.0) fl RDW Coeff of So 14 (11.0-15.0) % Plt Count 175 (150-400) K/uL MPV 11.70 (7.40-12.00) fL Neut % (Auto) (48.0-80.0) % Lymph % (Auto) (16.0-40.0) % [place] % (Auto) (0.0-15.0) % Eos % (Auto) (0.0-7.0) % Baso % (Auto) (0.0-1.5) % Neut # (Auto) (1.4-5.7) K/uL Lymph # (Auto) (0.6-2.4) K/uL [place] # (Auto) (0.0-0.8) K/uL Eos # (Auto) (0.0-0.7) K/uL Baso # (Auto) (0.0-0.1) K/uL Add Manual Diff YES Neutrophils % (Manual) 64 (48.0-80.0) % Band Neutrophils % 3 % Lymphocytes % (Manual) 26 (16.0-40.0) % Monocytes % (Manual) 3 (0.0-15.0) % Eosinophils % (Manual) 3 (0.0-7.0) % Basophils % (Manual) 1 (0.0-1.5) % Nucleated RBC % /100WBC Absolute Seg Neuts 6.5 H (1.4-5.7) Band Neutrophils # 0.3 Lymphocytes # (Manual) 2.7 H (0.6-2.4) Monocytes # (Manual) 0.3 (0.0-0.8) Eosinophils # (Manual) 0.3 (0.0-0.7) Basophils # (Manual) 0.1 (0.0-0.1) Nucleated RBCs # K/uL Sodium (136-146) mmol/L Potassium (3.5-5.1) mmol/L Chloride (98-110) mmol/L Carbon Dioxide (21-31) mmol/L BUN (6.0-23.0) mg/dL Creatinine (0.6-1.5) mg/dL Est Cr Clr Drug Dosing mL/min Estimated GFR (MDRD) ml/min Glucose (60-110) mg/dL POC Glucose 110 177 H (60-110) mg/dL Calcium (8.8-10.8) mg/dL Magnesium (1.5-2.3) mEq/L 08/30/17 08/30/17 08/30/17 Range/Units 00:51 05:45 05:45 WBC 9.06 (4.0-11.0) K/uL RBC 4.40 (4.30-5.90) M/uL Hgb 12.5 (12.0-16.0) g/dL Hct 38.1 (36.0-46.0) % MCV 86.6 (80.0-98.0) fL MCH 28.4 (27.0-32.0) pg MCHC 32.8 (31.0-37.0) g/dL RDW Std Deviation 44.9 (28.0-62.0) fl RDW Coeff of So 14 (11.0-15.0) % Plt Count 177 (150-400) K/uL MPV 11.80 (7.40-12.00) fL Neut % (Auto) 67.1 (48.0-80.0) % Lymph % (Auto) 15.6 L (16.0-40.0) % [place] % (Auto) 8.1 (0.0-15.0) % Eos % (Auto) 8.9 H (0.0-7.0) % Baso % (Auto) 0.3 (0.0-1.5) % Neut # (Auto) 6.1 H (1.4-5.7) K/uL Lymph # (Auto) 1.4 (0.6-2.4) K/uL [place] # (Auto) 0.7 (0.0-0.8) K/uL Eos # (Auto) 0.8 H (0.0-0.7) K/uL Baso # (Auto) 0.0 (0.0-0.1) K/uL Add Manual Diff Neutrophils % (Manual) (48.0-80.0) % Band Neutrophils % % Lymphocytes % (Manual) (16.0-40.0) % Monocytes % (Manual) (0.0-15.0) % Eosinophils % (Manual) (0.0-7.0) % Basophils % (Manual) (0.0-1.5) % Nucleated RBC % 0.0 /100WBC Absolute Seg Neuts (1.4-5.7) Band Neutrophils # Lymphocytes # (Manual) (0.6-2.4) Monocytes # (Manual) (0.0-0.8) Eosinophils # (Manual) (0.0-0.7) Basophils # (Manual) (0.0-0.1) Nucleated RBCs # 0 K/uL Sodium 138 139 (136-146) mmol/L Potassium 3.3 L 2.8 L (3.5-5.1) mmol/L Chloride 93 L 91 L (98-110) mmol/L Carbon Dioxide 29 37 H (21-31) mmol/L BUN 17 16 (6.0-23.0) mg/dL Creatinine 1.2 1.1 (0.6-1.5) mg/dL Est Cr Clr Drug Dosing 34.99 38.18 mL/min Estimated GFR (MDRD) 44.5 49.2 ml/min Glucose 126 H 144 H (60-110) mg/dL POC Glucose (60-110) mg/dL Calcium 9.4 9.4 (8.8-10.8) mg/dL Magnesium 1.6 (1.5-2.3) mEq/L 08/30/17 Range/Units 06:51 WBC (4.0-11.0) K/uL RBC (4.30-5.90) M/uL Hgb (12.0-16.0) g/dL Hct (36.0-46.0) % MCV (80.0-98.0) fL MCH (27.0-32.0) pg MCHC (31.0-37.0) g/dL RDW Std Deviation (28.0-62.0) fl RDW Coeff of So (11.0-15.0) % Plt Count (150-400) K/uL MPV (7.40-12.00) fL Neut % (Auto) (48.0-80.0) % Lymph % (Auto) (16.0-40.0) % [place] % (Auto) (0.0-15.0) % Eos % (Auto) (0.0-7.0) % Baso % (Auto) (0.0-1.5) % Neut # (Auto) (1.4-5.7) K/uL Lymph # (Auto) (0.6-2.4) K/uL [place] # (Auto) (0.0-0.8) K/uL Eos # (Auto) (0.0-0.7) K/uL Baso # (Auto) (0.0-0.1) K/uL Add Manual Diff Neutrophils % (Manual) (48.0-80.0) % Band Neutrophils % % Lymphocytes % (Manual) (16.0-40.0) % Monocytes % (Manual) (0.0-15.0) % Eosinophils % (Manual) (0.0-7.0) % Basophils % (Manual) (0.0-1.5) % Nucleated RBC % /100WBC Absolute Seg Neuts (1.4-5.7) Band Neutrophils # Lymphocytes # (Manual) (0.6-2.4) Monocytes # (Manual) (0.0-0.8) Eosinophils # (Manual) (0.0-0.7) Basophils # (Manual) (0.0-0.1) Nucleated RBCs # K/uL Sodium (136-146) mmol/L Potassium (3.5-5.1) mmol/L Chloride (98-110) mmol/L Carbon Dioxide (21-31) mmol/L BUN (6.0-23.0) mg/dL Creatinine (0.6-1.5) mg/dL Est Cr Clr Drug Dosing mL/min Estimated GFR (MDRD) ml/min Glucose (60-110) mg/dL POC Glucose 139 H (60-110) mg/dL Calcium (8.8-10.8) mg/dL Magnesium (1.5-2.3) mEq/L Chriss Results Last 24 Hrs: Microbiology 08/28/17 12:05 Gram Stain - Final Leg, Left Wound Culture - Final No Growth Anaerobic Culture - Final NO ANAEROBES ISOLATED Med Orders - Current: Current Medications Hydrocodone Bitart/Acetaminophen ([place] 325-10 Mg) 1 - 2 tab PO Q4H PRN PRN Reason: Pain Last Admin: 08/29/17 18:06 Dose: 2 tab Al Hydroxide/Mg Hydroxide (Mag-Al Plus) 30 ml PO Q4H PRN PRN Reason: indigestion Albuterol (Ventolin Hfa) 0 gm INH Q4H PRN PRN Reason: Shortness of Breath Alprazolam (Xanax) 0.5 mg PO BID PRN PRN Reason: Anxiety Amitriptyline HCl (Elavil) 10 mg PO BID [facility] Last Admin: 08/29/17 20:19 Dose: 10 mg Aspirin (Aspirin) 325 mg PO BID [facility] Last Admin: 08/29/17 20:21 Dose: Not Given Bisacodyl (Dulcolax) 10 mg RECTAL DAILY PRN PRN Reason: Constipation Bumetanide (Bumex) 3 mg PO BID@0800,1400 [facility] Last Admin: 08/29/17 13:45 Dose: 3 mg Carvedilol (Coreg) 3.125 mg PO BID [facility] Last Admin: 08/29/17 20:19 Dose: 3.125 mg Diphenhydramine HCl (Benadryl) 25 - 50 mg PO Q6H PRN PRN Reason: Itching Docusate Sodium (Colace) 100 mg PO BID [facility] Last Admin: 08/29/17 20:20 Dose: Not Given Duloxetine HCl (Cymbalta) 60 mg PO DAILY [facility] Last Admin: 08/29/17 08:44 Dose: 60 mg Levofloxacin/Dextrose 750 mg/ (Premix) 150 mls @ 100 mls/hr IV Q48H [facility] Last Admin: 08/30/17 03:20 Dose: 100 mls/hr Metolazone (Zaroxolyn) 2.5 mg PO DAILY [facility] Last Admin: 08/29/17 08:44 Dose: 2.5 mg Midodrine (Midodrine) 5 mg PO TID [facility] Last Admin: 08/30/17 06:09 Dose: 5 mg Ondansetron HCl (Zofran) 4 mg IV Q6HR PRN PRN Reason: NAUSEA/VOMITING Potassium Chloride (Klor-Con M20) 60 meq PO TIDMEALS [facility] Last Admin: 08/29/17 18:06 Dose: 60 meq Pregabalin (Lyrica) 200 mg PO TID [facility] Last Admin: 08/30/17 06:09 Dose: 200 mg Scopolamine (Transderm-Scop) 1.5 mg TRDERM ONARRIVE [facility] Last Admin: 08/28/17 10:41 Dose: 1.5 mg Simvastatin (Zocor) 10 mg PO BEDTIME [facility] Last Admin: 08/29/17 20:19 Dose: 10 mg Sodium Chloride (Saline Flush) 10 ml FLUSH ASDIRECTED PRN PRN Reason: Keep Vein Open Sodium Chloride (Saline Flush) 2.5 ml FLUSH ASDIRECTED PRN PRN Reason: Keep Vein Open Discontinued Medications Acetaminophen (Tylenol Extra Strength) 1,000 mg PO ONARRIVE [facility] Last Admin: 08/28/17 10:42 Dose: 1,000 mg Albuterol (Ventolin Hfa) 2 gm INH Q4H PRN PRN Reason: Shortness of Breath Alprazolam (Xanax) 1 mg PO BID PRN PRN Reason: Anxiety Last Admin: 08/29/17 20:19 Dose: 1 mg Bumetanide (Bumex) 3 mg PO 08/28/17@2100 [facility] Stop: 08/28/17 21:01 Last Admin: 08/28/17 20:24 Dose: 3 mg Celecoxib (Celebrex) 200 mg PO DAILY [facility] Ephedrine Sulfate (Ephedrine Sulfate) Confirm Administered Dose 50 mg .ROUTE .STK-MED ONE Stop: 08/28/17 10:57 Famotidine (Pepcid) 40 mg IVPUSH ONARRIVE [facility] Last Admin: 08/28/17 10:40 Dose: 40 mg Fentanyl (Sublimaze) Confirm Administered Dose 200 mcg .ROUTE .STK-MED ONE Stop: 08/28/17 10:56 Fentanyl (Sublimaze) 50 mcg IVPUSH Q5M PRN PRN Reason: Pain (severe 7-10) Stop: 08/29/17 12:18 Last Admin: 08/28/17 13:40 Dose: 50 mcg Cefazolin Sodium/Dextrose 2 gm (/ Premix) 50 mls @ 100 mls/hr IV ONCALL [facility] Ropivacaine 49.25 ml/Ketorolac Tromethamine 30 mg/Epinephrine HCl 0.5 mg/ Clonidine HCl 80 mcg/ Sodium Chloride 100 mls @ 50 mls/min INJECT ONETIME ONE Stop: 08/28/17 06:01 Last Admin: 08/28/17 14:17 Dose: Not Given Lactated Ringer's (Ringers, Lactated) 1,000 mls @ 100 mls/hr IV ASDIRECTED [facility] Last Admin: 08/28/17 10:35 Dose: 100 mls/hr Cefazolin Sodium/Dextrose 2 gm (/ Premix) 50 mls @ 100 mls/hr IV Q8HR [facility] Stop: 08/28/17 22:29 Last Admin: 08/28/17 17:27 Dose: Not Given Magnesium Sulfate 4 gm/ Premix 100 mls @ 50 mls/hr IV ONETIME ONE Stop: 08/28/17 17:23 Last Admin: 08/28/17 15:50 Dose: 50 mls/hr Cefazolin Sodium/Dextrose 2 gm (/ Premix) 50 mls @ 100 mls/hr IV Q8H [facility] Stop: 08/29/17 01:44 Last Infusion: 08/29/17 02:03 Dose: Infused Potassium Chloride 40 meq/ (Sodium Chloride) 520 mls @ 100 mls/hr IV ONETIME ONE Stop: 08/29/17 13:31 Last Admin: 08/29/17 09:05 Dose: 100 mls/hr Ketorolac Tromethamine (Toradol) 30 mg IVPUSH ONARRIVE [facility] Last Admin: 08/28/17 10:42 Dose: 30 mg Ketorolac Tromethamine (Toradol) 30 mg IVPUSH Q6H [facility] Stop: 08/29/17 09:00 Lidocaine (Xylocaine-Mpf 2%) Confirm Administered Dose 10 ml .ROUTE .STK-MED ONE Stop: 08/28/17 10:56 Midazolam HCl (Versed 1 Mg/Ml) Confirm Administered Dose 2 mg .ROUTE .STK-MED ONE Stop: 08/28/17 10:56 Midodrine (Midodrine) 5 mg PO TID [facility] Last Admin: 08/28/17 15:34 Dose: Not Given Ondansetron HCl (Zofran) Confirm Administered Dose 4 mg .ROUTE .STK-MED ONE Stop: 08/28/17 10:57 Ondansetron HCl (Zofran) Confirm Administered Dose 4 mg .ROUTE .STK-MED ONE Stop: 08/28/17 13:02 Last Admin: 08/28/17 14:18 Dose: Not Given Oxycodone HCl (Oxycontin) 20 mg PO ONARRIVE [facility] Last Admin: 08/28/17 10:43 Dose: 20 mg Propofol (Diprivan 20 Ml) Confirm Administered Dose 400 mg .ROUTE .STK-MED ONE Stop: 08/28/17 10:56 Tranexamic Acid (Cyklokapron) 4,000 mg IV SEECOMMENT [facility] Tranexamic Acid (Cyklokapron) Confirm Administered Dose 4,000 mg .ROUTE .STK- MED ONE Stop: 08/28/17 07:17 - Exam Wound/Incisions: Dressing Dry and Intact (Dressing changed this AM.) Quality Assessment: Supplemental Oxygen (4 L nasal cannula.) General: Alert, Oriented HEENT: Pupils Reactive Neck: Trachea Midline Lungs: Normal Respiratory Effort Extremities: Other Neurological: No New Focal Deficit Psy/Mental Status: Alert, Normal Affect, Normal Mood - Problem List Review Problem List Initiated/Reviewed/Updated: Yes - My Orders Last 24 Hours: Active Orders 24 hr Category Date Time Status Ready for Discharge [RC] PER UNIT ROUTINE Care 08/29/17 09:35 Inactive Remove Gordon Catheter [Urinary Catheter Removal] [RC] Care 08/29/17 08:08 Active Per Unit Routine CXR [Chest 1V Frontal] [CR] Routine Exams 08/30/17 00:35 Taken CBC WITH AUTO DIFF [HEME] AM Lab 08/31/17 05:11 Ordered ALPRAZolam [Xanax] Med 08/30/17 01:33 Active 0.5 mg PO BID PRN Aspirin Med 08/29/17 09:00 Active 325 mg PO BID Bumetanide [Bumex] Med 08/29/17 08:00 Active 3 mg PO BID@0800,1400 DULoxetine [Cymbalta] Med 08/29/17 09:00 Active 60 mg PO DAILY Levofloxacin/Dextrose 5%-Water [Levaquin in D5W 750 MG/ Med 08/30/17 02:00 Active 150 ML] 750 mg Premix Bag 1 bag IV Q48H Metolazone [Zaroxolyn] Med 08/29/17 09:00 Active 2.5 mg PO DAILY Sodium Chloride 0.9% [Saline Flush] Med 08/29/17 08:08 Active 10 ml FLUSH ASDIRECTED PRN Sodium Chloride 0.9% [Saline Flush] Med 08/29/17 08:08 Active 2.5 ml FLUSH ASDIRECTED PRN Convert IV to Saline Lock [OM.PC] Routine Oth 08/29/17 08:08 Ordered Medication Orders Hydrocodone Bitart/Acetaminophen ([place] 325-10 Mg) 1 - 2 tab PO Q4H PRN PRN Reason: Pain Last Admin: 08/29/17 18:06 Dose: 2 tab Admin: 08/29/17 11:16 Dose: 2 tab Admin: 08/28/17 20:13 Dose: 2 tab Admin: 08/28/17 14:40 Dose: 2 tab Al Hydroxide/Mg Hydroxide (Mag-Al Plus) 30 ml PO Q4H PRN PRN Reason: indigestion Albuterol (Ventolin Hfa) 0 gm INH Q4H PRN PRN Reason: Shortness of Breath Alprazolam (Xanax) 0.5 mg PO BID PRN PRN Reason: Anxiety Amitriptyline HCl (Elavil) 10 mg PO BID [facility] Last Admin: 08/29/17 20:19 Dose: 10 mg Admin: 08/29/17 08:44 Dose: 10 mg Admin: 08/28/17 20:17 Dose: 10 mg Aspirin (Aspirin) 325 mg PO BID [facility] Last Admin: 08/29/17 20:21 Dose: Not Given Admin: 08/29/17 08:43 Dose: 325 mg Bisacodyl (Dulcolax) 10 mg RECTAL DAILY PRN PRN Reason: Constipation Bumetanide (Bumex) 3 mg PO BID@0800,1400 [facility] Last Admin: 08/29/17 13:45 Dose: 3 mg Admin: 08/29/17 08:46 Dose: 3 mg Carvedilol (Coreg) 3.125 mg PO BID [facility] Last Admin: 08/29/17 20:19 Dose: 3.125 mg Admin: 08/29/17 08:43 Dose: 3.125 mg Admin: 08/28/17 20:14 Dose: 3.125 mg Diphenhydramine HCl (Benadryl) 25 - 50 mg PO Q6H PRN PRN Reason: Itching Docusate Sodium (Colace) 100 mg PO BID [facility] Last Admin: 08/29/17 20:20 Dose: Not Given Admin: 08/29/17 08:42 Dose: 100 mg Admin: 08/28/17 20:17 Dose: 100 mg Duloxetine HCl (Cymbalta) 60 mg PO DAILY [facility] Last Admin: 08/29/17 08:44 Dose: 60 mg Levofloxacin/Dextrose 750 mg/ (Premix) 150 mls @ 100 mls/hr IV Q48H [facility] Last Admin: 08/30/17 03:20 Dose: 100 mls/hr Metolazone (Zaroxolyn) 2.5 mg PO DAILY [facility] Last Admin: 08/29/17 08:44 Dose: 2.5 mg Midodrine (Midodrine) 5 mg PO TID [facility] Last Admin: 08/30/17 06:09 Dose: 5 mg Admin: 08/29/17 22:02 Dose: 5 mg Admin: 08/29/17 13:48 Dose: 5 mg Admin: 08/29/17 05:49 Dose: 5 mg Admin: 08/28/17 21:19 Dose: 5 mg Admin: 08/28/17 14:48 Dose: 5 mg Ondansetron HCl (Zofran) 4 mg IV Q6HR PRN PRN Reason: NAUSEA/VOMITING Potassium Chloride (Klor-Con M20) 60 meq PO TIDMEALS [facility] Last Admin: 08/29/17 18:06 Dose: 60 meq Admin: 08/29/17 11:48 Dose: 60 meq Admin: 08/29/17 08:41 Dose: 60 meq Admin: 08/28/17 17:26 Dose: 60 meq Pregabalin (Lyrica) 200 mg PO TID [facility] Last Admin: 08/30/17 06:09 Dose: 200 mg Admin: 08/29/17 22:02 Dose: 200 mg Admin: 08/29/17 13:46 Dose: 200 mg Admin: 08/29/17 05:50 Dose: 200 mg Admin: 08/28/17 21:18 Dose: 200 mg Scopolamine (Transderm-Scop) 1.5 mg TRDERM ONARRIVE [facility] Last Admin: 08/28/17 10:41 Dose: 1.5 mg Simvastatin (Zocor) 10 mg PO BEDTIME [facility] Last Admin: 08/29/17 20:19 Dose: 10 mg Admin: 08/28/17 20:17 Dose: 10 mg Sodium Chloride (Saline Flush) 10 ml FLUSH ASDIRECTED PRN PRN Reason: Keep Vein Open Sodium Chloride (Saline Flush) 2.5 ml FLUSH ASDIRECTED PRN PRN Reason: Keep Vein Open - Assessment Assessment (Free Text/Narrative):: Patient up to chair this AM. Tolerating diet. Pain controlled. Oxygen did drop into 60s last night, was called regarding SOB and confusion. Hospitalist was called. Chest xray and Levaquin. Oxygen 88 this morning. Potassium 2.8 Hgb 12.5. UO 3750 mL. - Plan Plan (Free Text/Narrative):: Continue PT. Continue pain management. Stable from ortho standpoint. Discharge home once medically stable. <Priscila Maria - Last Filed: 08/30/17 17:58> - Patient Data Vitals - Most Recent: Last Vital Signs Temp 97.4 F 08/30/17 16:00 Pulse 86 08/30/17 16:00 Resp 20 08/30/17 16:00 BP 108/57 L 08/30/17 16:00 Pulse Ox 94 L 08/30/17 16:00 I&O - Last 24 Hours: Intake & Output 08/30/17 08/30/17 08/30/17 06:59 14:59 22:59 Intake Total 850 1000 400 Output Total 600 1300 600 Balance 250 -300 -200 Lab Results Last 24 Hrs: Laboratory Results - last 24 hr 08/29/17 08/30/17 08/30/17 Range/Units 20:25 00:51 00:51 WBC 10.21 (4.0-11.0) K/uL RBC 4.31 (4.30-5.90) M/uL Hgb 12.2 (12.0-16.0) g/dL Hct 38.0 (36.0-46.0) % MCV 88.2 (80.0-98.0) fL MCH 28.3 (27.0-32.0) pg MCHC 32.1 (31.0-37.0) g/dL RDW Std Deviation 44.2 (28.0-62.0) fl RDW Coeff of So 14 (11.0-15.0) % Plt Count 175 (150-400) K/uL MPV 11.70 (7.40-12.00) fL Neut % (Auto) (48.0-80.0) % Lymph % (Auto) (16.0-40.0) % [place] % (Auto) (0.0-15.0) % Eos % (Auto) (0.0-7.0) % Baso % (Auto) (0.0-1.5) % Neut # (Auto) (1.4-5.7) K/uL Lymph # (Auto) (0.6-2.4) K/uL [place] # (Auto) (0.0-0.8) K/uL Eos # (Auto) (0.0-0.7) K/uL Baso # (Auto) (0.0-0.1) K/uL Add Manual Diff YES Neutrophils % (Manual) 64 (48.0-80.0) % Band Neutrophils % 3 % Lymphocytes % (Manual) 26 (16.0-40.0) % Monocytes % (Manual) 3 (0.0-15.0) % Eosinophils % (Manual) 3 (0.0-7.0) % Basophils % (Manual) 1 (0.0-1.5) % Nucleated RBC % /100WBC Absolute Seg Neuts 6.5 H (1.4-5.7) Band Neutrophils # 0.3 Lymphocytes # (Manual) 2.7 H (0.6-2.4) Monocytes # (Manual) 0.3 (0.0-0.8) Eosinophils # (Manual) 0.3 (0.0-0.7) Basophils # (Manual) 0.1 (0.0-0.1) Nucleated RBCs # K/uL ABG pH (7.35-7.45) ABG pCO2 (35-45) mmHG ABG pO2 (75-100) mmHG ABG HCO3 (22-26) mEq/L ABG Total CO2 ABG Base Excess (-2.0-2.0) Sodium 138 (136-146) mmol/L Potassium 3.3 L (3.5-5.1) mmol/L Chloride 93 L (98-110) mmol/L Carbon Dioxide 29 (21-31) mmol/L BUN 17 (6.0-23.0) mg/dL Creatinine 1.2 (0.6-1.5) mg/dL Est Cr Clr Drug Dosing 34.99 mL/min Estimated GFR (MDRD) 44.5 ml/min Glucose 126 H (60-110) mg/dL POC Glucose 177 H (60-110) mg/dL Calcium 9.4 (8.8-10.8) mg/dL Magnesium (1.5-2.3) mEq/L Urine Color Urine Appearance Urine pH (5.0-8.0) Ur Specific [place] (1.001-1.035) Urine Protein (NEGATIVE) mg/dL Urine Glucose (UA) (NEGATIVE) mg/dL Urine Ketones (NEGATIVE) mg/dL Urine Occult Blood (NEGATIVE) Urine Nitrite (NEGATIVE) Urine Bilirubin (NEGATIVE) Urine Urobilinogen (<2.0) EU/dL Ur Leukocyte Esterase (NEGATIVE) Urine RBC (0-2/HPF) Urine WBC (0-5/HPF) Ur Epithelial Cells (NONE-FEW) Urine Bacteria (NEGATIVE) 08/30/17 08/30/17 08/30/17 Range/Units 05:45 05:45 06:51 WBC 9.06 (4.0-11.0) K/uL RBC 4.40 (4.30-5.90) M/uL Hgb 12.5 (12.0-16.0) g/dL Hct 38.1 (36.0-46.0) % MCV 86.6 (80.0-98.0) fL MCH 28.4 (27.0-32.0) pg MCHC 32.8 (31.0-37.0) g/dL RDW Std Deviation 44.9 (28.0-62.0) fl RDW Coeff of [place] 14 (11.0-15.0) % Plt Count 177 (150-400) K/uL MPV 11.80 (7.40-12.00) fL Neut % (Auto) 67.1 (48.0-80.0) % Lymph % (Auto) 15.6 L (16.0-40.0) % [place] % (Auto) 8.1 (0.0-15.0) % Eos % (Auto) 8.9 H (0.0-7.0) % Baso % (Auto) 0.3 (0.0-1.5) % Neut # (Auto) 6.1 H (1.4-5.7) K/uL Lymph # (Auto) 1.4 (0.6-2.4) K/uL [place] # (Auto) 0.7 (0.0-0.8) K/uL Eos # (Auto) 0.8 H (0.0-0.7) K/uL Baso # (Auto) 0.0 (0.0-0.1) K/uL Add Manual Diff Neutrophils % (Manual) (48.0-80.0) % Band Neutrophils % % Lymphocytes % (Manual) (16.0-40.0) % Monocytes % (Manual) (0.0-15.0) % Eosinophils % (Manual) (0.0-7.0) % Basophils % (Manual) (0.0-1.5) % Nucleated RBC % 0.0 /100WBC Absolute Seg Neuts (1.4-5.7) Band Neutrophils # Lymphocytes # (Manual) (0.6-2.4) Monocytes # (Manual) (0.0-0.8) Eosinophils # (Manual) (0.0-0.7) Basophils # (Manual) (0.0-0.1) Nucleated RBCs # 0 K/uL ABG pH (7.35-7.45) ABG pCO2 (35-45) mmHG ABG pO2 (75-100) mmHG ABG HCO3 (22-26) mEq/L ABG Total CO2 ABG Base Excess (-2.0-2.0) Sodium 139 (136-146) mmol/L Potassium 2.8 L (3.5-5.1) mmol/L Chloride 91 L (98-110) mmol/L Carbon Dioxide 37 H (21-31) mmol/L BUN 16 (6.0-23.0) mg/dL Creatinine 1.1 (0.6-1.5) mg/dL Est Cr Clr Drug Dosing 38.18 mL/min Estimated GFR (MDRD) 49.2 ml/min Glucose 144 H (60-110) mg/dL POC Glucose 139 H (60-110) mg/dL Calcium 9.4 (8.8-10.8) mg/dL Magnesium 1.6 (1.5-2.3) mEq/L Urine Color Urine Appearance Urine pH (5.0-8.0) Ur Specific [place] (1.001-1.035) Urine Protein (NEGATIVE) mg/dL Urine Glucose (UA) (NEGATIVE) mg/dL Urine Ketones (NEGATIVE) mg/dL Urine Occult Blood (NEGATIVE) Urine Nitrite (NEGATIVE) Urine Bilirubin (NEGATIVE) Urine Urobilinogen (<2.0) EU/dL Ur Leukocyte Esterase (NEGATIVE) Urine RBC (0-2/HPF) Urine WBC (0-5/HPF) Ur Epithelial Cells (NONE-FEW) Urine Bacteria (NEGATIVE) 08/30/17 08/30/17 08/30/17 Range/Units 11:25 11:52 13:05 WBC (4.0-11.0) K/uL RBC (4.30-5.90) M/uL Hgb (12.0-16.0) g/dL Hct (36.0-46.0) % MCV (80.0-98.0) fL MCH (27.0-32.0) pg MCHC (31.0-37.0) g/dL RDW Std Deviation (28.0-62.0) fl RDW Coeff of So (11.0-15.0) % Plt Count (150-400) K/uL MPV (7.40-12.00) fL Neut % (Auto) (48.0-80.0) % Lymph % (Auto) (16.0-40.0) % [place] % (Auto) (0.0-15.0) % Eos % (Auto) (0.0-7.0) % Baso % (Auto) (0.0-1.5) % Neut # (Auto) (1.4-5.7) K/uL Lymph # (Auto) (0.6-2.4) K/uL [place] # (Auto) (0.0-0.8) K/uL Eos # (Auto) (0.0-0.7) K/uL Baso # (Auto) (0.0-0.1) K/uL Add Manual Diff Neutrophils % (Manual) (48.0-80.0) % Band Neutrophils % % Lymphocytes % (Manual) (16.0-40.0) % Monocytes % (Manual) (0.0-15.0) % Eosinophils % (Manual) (0.0-7.0) % Basophils % (Manual) (0.0-1.5) % Nucleated RBC % /100WBC Absolute Seg Neuts (1.4-5.7) Band Neutrophils # Lymphocytes # (Manual) (0.6-2.4) Monocytes # (Manual) (0.0-0.8) Eosinophils # (Manual) (0.0-0.7) Basophils # (Manual) (0.0-0.1) Nucleated RBCs # K/uL ABG pH 7.456 H (7.35-7.45) ABG pCO2 60 H (35-45) mmHG ABG pO2 65 L (75-100) mmHG ABG HCO3 42 H (22-26) mEq/L ABG Total CO2 38.6 ABG Base Excess 15.8 H (-2.0-2.0) Sodium (136-146) mmol/L Potassium (3.5-5.1) mmol/L Chloride (98-110) mmol/L Carbon Dioxide (21-31) mmol/L BUN (6.0-23.0) mg/dL Creatinine (0.6-1.5) mg/dL Est Cr Clr Drug Dosing mL/min Estimated GFR (MDRD) ml/min Glucose (60-110) mg/dL POC Glucose 129 H (60-110) mg/dL Calcium (8.8-10.8) mg/dL Magnesium (1.5-2.3) mEq/L Urine Color YELLOW Urine Appearance CLEAR Urine pH 6.0 (5.0-8.0) Ur Specific [place] <= 1.005 (1.001-1.035) Urine Protein NEGATIVE (NEGATIVE) mg/dL Urine Glucose (UA) NEGATIVE (NEGATIVE) mg/dL Urine Ketones NEGATIVE (NEGATIVE) mg/dL Urine Occult Blood MODERATE (NEGATIVE) Urine Nitrite NEGATIVE (NEGATIVE) Urine Bilirubin NEGATIVE (NEGATIVE) Urine Urobilinogen 0.2 (<2.0) EU/dL Ur Leukocyte Esterase NEGATIVE (NEGATIVE) Urine RBC 0-2 (0-2/HPF) Urine WBC 0-1 (0-5/HPF) Ur Epithelial Cells RARE (NONE-FEW) Urine Bacteria RARE (NEGATIVE) 08/30/17 Range/Units 15:55 WBC (4.0-11.0) K/uL RBC (4.30-5.90) M/uL Hgb (12.0-16.0) g/dL Hct (36.0-46.0) % MCV (80.0-98.0) fL MCH (27.0-32.0) pg MCHC (31.0-37.0) g/dL RDW Std Deviation (28.0-62.0) fl RDW Coeff of So (11.0-15.0) % Plt Count (150-400) K/uL MPV (7.40-12.00) fL Neut % (Auto) (48.0-80.0) % Lymph % (Auto) (16.0-40.0) % [place] % (Auto) (0.0-15.0) % Eos % (Auto) (0.0-7.0) % Baso % (Auto) (0.0-1.5) % Neut # (Auto) (1.4-5.7) K/uL Lymph # (Auto) (0.6-2.4) K/uL [place] # (Auto) (0.0-0.8) K/uL Eos # (Auto) (0.0-0.7) K/uL Baso # (Auto) (0.0-0.1) K/uL Add Manual Diff Neutrophils % (Manual) (48.0-80.0) % Band Neutrophils % % Lymphocytes % (Manual) (16.0-40.0) % Monocytes % (Manual) (0.0-15.0) % Eosinophils % (Manual) (0.0-7.0) % Basophils % (Manual) (0.0-1.5) % Nucleated RBC % /100WBC Absolute Seg Neuts (1.4-5.7) Band Neutrophils # Lymphocytes # (Manual) (0.6-2.4) Monocytes # (Manual) (0.0-0.8) Eosinophils # (Manual) (0.0-0.7) Basophils # (Manual) (0.0-0.1) Nucleated RBCs # K/uL ABG pH (7.35-7.45) ABG pCO2 (35-45) mmHG ABG pO2 (75-100) mmHG ABG HCO3 (22-26) mEq/L ABG Total CO2 ABG Base Excess (-2.0-2.0) Sodium (136-146) mmol/L Potassium (3.5-5.1) mmol/L Chloride (98-110) mmol/L Carbon Dioxide (21-31) mmol/L BUN (6.0-23.0) mg/dL Creatinine (0.6-1.5) mg/dL Est Cr Clr Drug Dosing mL/min Estimated GFR (MDRD) ml/min Glucose (60-110) mg/dL POC Glucose 111 H (60-110) mg/dL Calcium (8.8-10.8) mg/dL Magnesium (1.5-2.3) mEq/L Urine Color Urine Appearance Urine pH (5.0-8.0) Ur Specific [place] (1.001-1.035) Urine Protein (NEGATIVE) mg/dL Urine Glucose (UA) (NEGATIVE) mg/dL Urine Ketones (NEGATIVE) mg/dL Urine Occult Blood (NEGATIVE) Urine Nitrite (NEGATIVE) Urine Bilirubin (NEGATIVE) Urine Urobilinogen (<2.0) EU/dL Ur Leukocyte Esterase (NEGATIVE) Urine RBC (0-2/HPF) Urine WBC (0-5/HPF) Ur Epithelial Cells (NONE-FEW) Urine Bacteria (NEGATIVE) Chriss Results Last 24 Hrs: Microbiology 08/28/17 12:05 Gram Stain - Final Leg, Left Wound Culture - Final No Growth Anaerobic Culture - Final NO ANAEROBES ISOLATED Med Orders - Current: Current Medications Hydrocodone Bitart/Acetaminophen ([place] 325-10 Mg) 1 - 2 tab PO Q4H PRN PRN Reason: Pain Last Admin: 08/30/17 16:52 Dose: 2 tab Al Hydroxide/Mg Hydroxide (Mag-Al Plus) 30 ml PO Q4H PRN PRN Reason: indigestion Albuterol (Ventolin Hfa) 0 gm INH Q4H PRN PRN Reason: Shortness of Breath Alprazolam (Xanax) 0.5 mg PO BID PRN PRN Reason: Anxiety Amitriptyline HCl (Elavil) 10 mg PO BID [facility] Last Admin: 08/30/17 08:49 Dose: 10 mg Aspirin (Aspirin) 325 mg PO BID [facility] Last Admin: 08/30/17 08:48 Dose: 325 mg Bisacodyl (Dulcolax) 10 mg RECTAL DAILY PRN PRN Reason: Constipation Bumetanide (Bumex) 3 mg PO BID@0800,1400 [facility] Last Admin: 08/30/17 13:43 Dose: 3 mg Carvedilol (Coreg) 3.125 mg PO BID [facility] Last Admin: 08/30/17 08:49 Dose: 3.125 mg Diphenhydramine HCl (Benadryl) 25 - 50 mg PO Q6H PRN PRN Reason: Itching Docusate Sodium (Colace) 100 mg PO BID [facility] Last Admin: 08/30/17 08:48 Dose: 100 mg Duloxetine HCl (Cymbalta) 60 mg PO DAILY [facility] Last Admin: 08/30/17 08:48 Dose: 60 mg Levofloxacin/Dextrose 750 mg/ (Premix) 150 mls @ 100 mls/hr IV Q48H [facility] Last Admin: 08/30/17 03:20 Dose: 100 mls/hr Metolazone (Zaroxolyn) 2.5 mg PO DAILY [facility] Last Admin: 08/30/17 08:49 Dose: 2.5 mg Midodrine (Midodrine) 5 mg PO TID [facility] Last Admin: 08/30/17 13:43 Dose: 5 mg Ondansetron HCl (Zofran) 4 mg IV Q6HR PRN PRN Reason: NAUSEA/VOMITING Potassium Chloride (Klor-Con M20) 60 meq PO TIDMEALS [facility] Last Admin: 08/30/17 16:49 Dose: 60 meq Pregabalin (Lyrica) 200 mg PO TID [facility] Last Admin: 08/30/17 13:43 Dose: 200 mg Scopolamine (Transderm-Scop) 1.5 mg TRDERM ONARRIVE [facility] Last Admin: 08/28/17 10:41 Dose: 1.5 mg Simvastatin (Zocor) 10 mg PO BEDTIME [facility] Last Admin: 08/29/17 20:19 Dose: 10 mg Sodium Chloride (Saline Flush) 10 ml FLUSH ASDIRECTED PRN PRN Reason: Keep Vein Open Sodium Chloride (Saline Flush) 2.5 ml FLUSH ASDIRECTED PRN PRN Reason: Keep Vein Open Discontinued Medications Acetaminophen (Tylenol Extra Strength) 1,000 mg PO ONARRIVE [facility] Last Admin: 08/28/17 10:42 Dose: 1,000 mg Albuterol (Ventolin Hfa) 2 gm INH Q4H PRN PRN Reason: Shortness of Breath Alprazolam (Xanax) 1 mg PO BID PRN PRN Reason: Anxiety Last Admin: 08/29/17 20:19 Dose: 1 mg Bumetanide (Bumex) 3 mg PO 08/28/17@2100 [facility] Stop: 08/28/17 21:01 Last Admin: 08/28/17 20:24 Dose: 3 mg Celecoxib (Celebrex) 200 mg PO DAILY [facility] Ephedrine Sulfate (Ephedrine Sulfate) Confirm Administered Dose 50 mg .ROUTE .STK-MED ONE Stop: 08/28/17 10:57 Famotidine (Pepcid) 40 mg IVPUSH ONARRIVE [facility] Last Admin: 08/28/17 10:40 Dose: 40 mg Fentanyl (Sublimaze) Confirm Administered Dose 200 mcg .ROUTE .STK-MED ONE Stop: 08/28/17 10:56 Fentanyl (Sublimaze) 50 mcg IVPUSH Q5M PRN PRN Reason: Pain (severe 7-10) Stop: 08/29/17 12:18 Last Admin: 08/28/17 13:40 Dose: 50 mcg Cefazolin Sodium/Dextrose 2 gm (/ Premix) 50 mls @ 100 mls/hr IV ONCALL [facility] Ropivacaine 49.25 ml/Ketorolac Tromethamine 30 mg/Epinephrine HCl 0.5 mg/ Clonidine HCl 80 mcg/ Sodium Chloride 100 mls @ 50 mls/min INJECT ONETIME ONE Stop: 08/28/17 06:01 Last Admin: 08/28/17 14:17 Dose: Not Given Lactated Ringer's (Ringers, Lactated) 1,000 mls @ 100 mls/hr IV ASDIRECTED [facility] Last Admin: 08/28/17 10:35 Dose: 100 mls/hr Cefazolin Sodium/Dextrose 2 gm (/ Premix) 50 mls @ 100 mls/hr IV Q8HR [facility] Stop: 08/28/17 22:29 Last Admin: 08/28/17 17:27 Dose: Not Given Magnesium Sulfate 4 gm/ Premix 100 mls @ 50 mls/hr IV ONETIME ONE Stop: 08/28/17 17:23 Last Admin: 08/28/17 15:50 Dose: 50 mls/hr Cefazolin Sodium/Dextrose 2 gm (/ Premix) 50 mls @ 100 mls/hr IV Q8H [facility] Stop: 08/29/17 01:44 Last Infusion: 08/29/17 02:03 Dose: Infused Potassium Chloride 40 meq/ (Sodium Chloride) 520 mls @ 100 mls/hr IV ONETIME ONE Stop: 08/29/17 13:31 Last Admin: 08/29/17 09:05 Dose: 100 mls/hr Ketorolac Tromethamine (Toradol) 30 mg IVPUSH ONARRIVE [facility] Last Admin: 08/28/17 10:42 Dose: 30 mg Ketorolac Tromethamine (Toradol) 30 mg IVPUSH Q6H [facility] Stop: 08/29/17 09:00 Lidocaine (Xylocaine-Mpf 2%) Confirm Administered Dose 10 ml .ROUTE .STK-MED ONE Stop: 08/28/17 10:56 Midazolam HCl (Versed 1 Mg/Ml) Confirm Administered Dose 2 mg .ROUTE .STK-MED ONE Stop: 08/28/17 10:56 Midodrine (Midodrine) 5 mg PO TID [facility] Last Admin: 08/28/17 15:34 Dose: Not Given Ondansetron HCl (Zofran) Confirm Administered Dose 4 mg .ROUTE .STK-MED ONE Stop: 08/28/17 10:57 Ondansetron HCl (Zofran) Confirm Administered Dose 4 mg .ROUTE .STK-MED ONE Stop: 08/28/17 13:02 Last Admin: 08/28/17 14:18 Dose: Not Given Oxycodone HCl (Oxycontin) 20 mg PO ONARRIVE [facility] Last Admin: 08/28/17 10:43 Dose: 20 mg Propofol (Diprivan 20 Ml) Confirm Administered Dose 400 mg .ROUTE .STK-MED ONE Stop: 08/28/17 10:56 Tranexamic Acid (Cyklokapron) 4,000 mg IV SEECOMMENT [facility] Tranexamic Acid (Cyklokapron) Confirm Administered Dose 4,000 mg .ROUTE .STK- MED ONE Stop: 08/28/17 07:17 - My Orders Last 24 Hours: Active Orders 24 hr Category Date Time Status BMP [BASIC METABOLIC PANEL,BMP] [CHEM] Routine Lab 08/31/17 05:00 Ordered CBC WITH AUTO DIFF [HEME] AM Lab 08/31/17 05:11 Ordered ALPRAZolam [Xanax] Med 08/30/17 01:33 Active 0.5 mg PO BID PRN Levofloxacin/Dextrose 5%-Water [Levaquin in D5W 750 MG/ Med 08/30/17 02:00 Active 150 ML] 750 mg Premix Bag 1 bag IV Q48H Medication Orders Hydrocodone Bitart/Acetaminophen ([place] 325-10 Mg) 1 - 2 tab PO Q4H PRN PRN Reason: Pain Last Admin: 08/30/17 16:52 Dose: 2 tab Admin: 08/30/17 09:24 Dose: 2 tab Admin: 08/29/17 18:06 Dose: 2 tab Admin: 08/29/17 11:16 Dose: 2 tab Admin: 08/28/17 20:13 Dose: 2 tab Admin: 08/28/17 14:40 Dose: 2 tab Al Hydroxide/Mg Hydroxide (Mag-Al Plus) 30 ml PO Q4H PRN PRN Reason: indigestion Albuterol (Ventolin Hfa) 0 gm INH Q4H PRN PRN Reason: Shortness of Breath Alprazolam (Xanax) 0.5 mg PO BID PRN PRN Reason: Anxiety Amitriptyline HCl (Elavil) 10 mg PO BID [facility] Last Admin: 08/30/17 08:49 Dose: 10 mg Admin: 08/29/17 20:19 Dose: 10 mg Admin: 08/29/17 08:44 Dose: 10 mg Admin: 08/28/17 20:17 Dose: 10 mg Aspirin (Aspirin) 325 mg PO BID [facility] Last Admin: 08/30/17 08:48 Dose: 325 mg Admin: 08/29/17 20:21 Dose: Not Given Admin: 08/29/17 08:43 Dose: 325 mg Bisacodyl (Dulcolax) 10 mg RECTAL DAILY PRN PRN Reason: Constipation Bumetanide (Bumex) 3 mg PO BID@0800,1400 [facility] Last Admin: 08/30/17 13:43 Dose: 3 mg Admin: 08/30/17 08:46 Dose: 3 mg Admin: 08/29/17 13:45 Dose: 3 mg Admin: 08/29/17 08:46 Dose: 3 mg Carvedilol (Coreg) 3.125 mg PO BID [facility] Last Admin: 08/30/17 08:49 Dose: 3.125 mg Admin: 08/29/17 20:19 Dose: 3.125 mg Admin: 08/29/17 08:43 Dose: 3.125 mg Admin: 08/28/17 20:14 Dose: 3.125 mg Diphenhydramine HCl (Benadryl) 25 - 50 mg PO Q6H PRN PRN Reason: Itching Docusate Sodium (Colace) 100 mg PO BID [facility] Last Admin: 08/30/17 08:48 Dose: 100 mg Admin: 08/29/17 20:20 Dose: Not Given Admin: 08/29/17 08:42 Dose: 100 mg Admin: 08/28/17 20:17 Dose: 100 mg Duloxetine HCl (Cymbalta) 60 mg PO DAILY [facility] Last Admin: 08/30/17 08:48 Dose: 60 mg Admin: 08/29/17 08:44 Dose: 60 mg Levofloxacin/Dextrose 750 mg/ (Premix) 150 mls @ 100 mls/hr IV Q48H [facility] Last Admin: 08/30/17 03:20 Dose: 100 mls/hr Metolazone (Zaroxolyn) 2.5 mg PO DAILY [facility] Last Admin: 08/30/17 08:49 Dose: 2.5 mg Admin: 08/29/17 08:44 Dose: 2.5 mg Midodrine (Midodrine) 5 mg PO TID [facility] Last Admin: 08/30/17 13:43 Dose: 5 mg Admin: 08/30/17 06:09 Dose: 5 mg Admin: 08/29/17 22:02 Dose: 5 mg Admin: 08/29/17 13:48 Dose: 5 mg Admin: 08/29/17 05:49 Dose: 5 mg Admin: 08/28/17 21:19 Dose: 5 mg Admin: 08/28/17 14:48 Dose: 5 mg Ondansetron HCl (Zofran) 4 mg IV Q6HR PRN PRN Reason: NAUSEA/VOMITING Potassium Chloride (Klor-Con M20) 60 meq PO TIDMEALS [facility] Last Admin: 08/30/17 16:49 Dose: 60 meq Admin: 08/30/17 11:50 Dose: 60 meq Admin: 08/30/17 08:46 Dose: 60 meq Admin: 08/29/17 18:06 Dose: 60 meq Admin: 08/29/17 11:48 Dose: 60 meq Admin: 08/29/17 08:41 Dose: 60 meq Admin: 08/28/17 17:26 Dose: 60 meq Pregabalin (Lyrica) 200 mg PO TID [facility] Last Admin: 08/30/17 13:43 Dose: 200 mg Admin: 08/30/17 06:09 Dose: 200 mg Admin: 08/29/17 22:02 Dose: 200 mg Admin: 08/29/17 13:46 Dose: 200 mg Admin: 08/29/17 05:50 Dose: 200 mg Admin: 08/28/17 21:18 Dose: 200 mg Scopolamine (Transderm-Scop) 1.5 mg TRDERM ONARRIVE [facility] Last Admin: 08/28/17 10:41 Dose: 1.5 mg Simvastatin (Zocor) 10 mg PO BEDTIME [facility] Last Admin: 08/29/17 20:19 Dose: 10 mg Admin: 08/28/17 20:17 Dose: 10 mg Sodium Chloride (Saline Flush) 10 ml FLUSH ASDIRECTED PRN PRN Reason: Keep Vein Open Sodium Chloride (Saline Flush) 2.5 ml FLUSH ASDIRECTED PRN PRN Reason: Keep Vein Open - Plan Plan (Free Text/Narrative):: 1800 Patient seen and examined. Agree with above note. Patient sitting in chair eating supper. States she feels tired, but denies CP, SOB. Cannot relate somnolence to medication. Pain in knee controlled with medication. Hospitalist is following--multiple medical issues including hypokalemia, pneumonia, hypomagnesium. Progressing well with PT. Exam shows dressing in place. No calf TTP. NVI. 1. continue PT and current pain managment 2. appreciate hospitalist assisting with multiple medical problems. PO supplementation started for decreased K+, IV dose given yesterday. K+ remains low today. Magnesium also low. Recheck in am. On abx for pneumonia. continue O2 sat monitoring and supplemental O2 prn. 3. plan for discharge when medically stable.
[2017-08-30] MEDS: Potassium Chloride 20 MEQ Tab.ER PO SCH ×3 (08:46→16:49)
[2017-08-30] MEDS: Bumetanide 1 MG Tab PO SCH ×2 (08:46→13:43)
[2017-08-30] MEDS: Aspirin 325 MG Tab PO SCH ×2 (08:48→20:44)
[2017-08-30] MEDS: Docusate Sodium 100 MG Cap PO SCH ×2 (08:48→20:43)
[2017-08-30] MEDS: DULoxetine 60 MG Cap PO SCH (08:48)
[2017-08-30] MEDS: Carvedilol 3.125 MG Tab PO SCH ×2 (08:49→20:44)
[2017-08-30] MEDS: Metolazone 5 MG Tab PO SCH (08:49)
[2017-08-30] MEDS: Amitriptyline 10 MG Tab PO SCH ×2 (08:49→20:43)
[2017-08-30] MEDS ORDERED: Celecoxib 100 MG Cap PO SCH (09:00)
[2017-08-30] MEDS: Acetaminophen/HYDROcodone 325-10 MG Tab PO PRN ×2 (09:24→16:52)
--- NOTE | 2017-08-30 09:25 | PCM.CONSN ---
- General Info Date of Service: 08/30/17 Admission Dx/Problem (Free Text): Admission Diagnosis/Problem Admission Diagnosis/Problem Revision of total knee joint Subjective Update: Patient had event of desaturations last evening with disorientation. Was seen by Dr. Otoole. This morning she remains groggy, but is oriented x3. No chest pain or SOB. Having a lot of knee pain. No cough. or fevers. Functional Status: Reports: Tolerating Diet, Ambulating, Urinating - Review of Systems General: Reports: No Symptoms. Denies: Fever Pulmonary: Reports: No Symptoms. Denies: Shortness of Breath, Cough Cardiovascular: Reports: Edema (= 1 BLE). Denies: Chest Pain Gastrointestinal: Reports: No Symptoms. Denies: Abdominal Pain, Nausea, Vomiting Genitourinary: Reports: No Symptoms. Denies: Dysuria, Frequency, Burning Neurological: Reports: Confusion (tried getting up out of the chair when nursing staff turned their back.) Psychiatric: Reports: No Symptoms - Patient Data Vitals - Most Recent: Last Vital Signs Temp 97.0 F 08/30/17 04:00 Pulse 82 08/30/17 08:49 Resp 18 08/30/17 04:00 BP 106/60 08/30/17 08:49 Pulse Ox 97 08/30/17 04:00 Weight - Most Recent: 104 kg I&O - Last 24 Hours: Intake & Output 08/29/17 08/30/17 08/30/17 22:59 06:59 14:59 Intake Total 1220 850 600 Output Total 1750 600 Balance -530 250 600 Lab Results Last 24 Hours: Laboratory Results - last 24 hr 08/29/17 08/29/17 08/29/17 Range/Units 11:11 14:00 17:41 WBC (4.0-11.0) K/uL RBC (4.30-5.90) M/uL Hgb (12.0-16.0) g/dL Hct (36.0-46.0) % MCV (80.0-98.0) fL MCH (27.0-32.0) pg MCHC (31.0-37.0) g/dL RDW Std Deviation (28.0-62.0) fl RDW Coeff of So (11.0-15.0) % Plt Count (150-400) K/uL MPV (7.40-12.00) fL Neut % (Auto) (48.0-80.0) % Lymph % (Auto) (16.0-40.0) % [place] % (Auto) (0.0-15.0) % Eos % (Auto) (0.0-7.0) % Baso % (Auto) (0.0-1.5) % Neut # (Auto) (1.4-5.7) K/uL Lymph # (Auto) (0.6-2.4) K/uL [place] # (Auto) (0.0-0.8) K/uL Eos # (Auto) (0.0-0.7) K/uL Baso # (Auto) (0.0-0.1) K/uL Add Manual Diff Neutrophils % (Manual) (48.0-80.0) % Band Neutrophils % % Lymphocytes % (Manual) (16.0-40.0) % Monocytes % (Manual) (0.0-15.0) % Eosinophils % (Manual) (0.0-7.0) % Basophils % (Manual) (0.0-1.5) % Nucleated RBC % /100WBC Absolute Seg Neuts (1.4-5.7) Band Neutrophils # Lymphocytes # (Manual) (0.6-2.4) Monocytes # (Manual) (0.0-0.8) Eosinophils # (Manual) (0.0-0.7) Basophils # (Manual) (0.0-0.1) Nucleated RBCs # K/uL Sodium 141 (136-146) mmol/L Potassium 3.1 L (3.5-5.1) mmol/L Chloride 94 L (98-110) mmol/L Carbon Dioxide 35 H (21-31) mmol/L BUN 14 (6.0-23.0) mg/dL Creatinine 1.2 (0.6-1.5) mg/dL Est Cr Clr Drug Dosing 34.99 mL/min Estimated GFR (MDRD) 44.5 ml/min Glucose 122 H (60-110) mg/dL POC Glucose 173 H 110 (60-110) mg/dL Calcium 9.1 (8.8-10.8) mg/dL Magnesium (1.5-2.3) mEq/L 08/29/17 08/30/17 08/30/17 Range/Units 20:25 00:51 00:51 WBC 10.21 (4.0-11.0) K/uL RBC 4.31 (4.30-5.90) M/uL Hgb 12.2 (12.0-16.0) g/dL Hct 38.0 (36.0-46.0) % MCV 88.2 (80.0-98.0) fL MCH 28.3 (27.0-32.0) pg MCHC 32.1 (31.0-37.0) g/dL RDW Std Deviation 44.2 (28.0-62.0) fl RDW Coeff of So 14 (11.0-15.0) % Plt Count 175 (150-400) K/uL MPV 11.70 (7.40-12.00) fL Neut % (Auto) (48.0-80.0) % Lymph % (Auto) (16.0-40.0) % [place] % (Auto) (0.0-15.0) % Eos % (Auto) (0.0-7.0) % Baso % (Auto) (0.0-1.5) % Neut # (Auto) (1.4-5.7) K/uL Lymph # (Auto) (0.6-2.4) K/uL [place] # (Auto) (0.0-0.8) K/uL Eos # (Auto) (0.0-0.7) K/uL Baso # (Auto) (0.0-0.1) K/uL Add Manual Diff YES Neutrophils % (Manual) 64 (48.0-80.0) % Band Neutrophils % 3 % Lymphocytes % (Manual) 26 (16.0-40.0) % Monocytes % (Manual) 3 (0.0-15.0) % Eosinophils % (Manual) 3 (0.0-7.0) % Basophils % (Manual) 1 (0.0-1.5) % Nucleated RBC % /100WBC Absolute Seg Neuts 6.5 H (1.4-5.7) Band Neutrophils # 0.3 Lymphocytes # (Manual) 2.7 H (0.6-2.4) Monocytes # (Manual) 0.3 (0.0-0.8) Eosinophils # (Manual) 0.3 (0.0-0.7) Basophils # (Manual) 0.1 (0.0-0.1) Nucleated RBCs # K/uL Sodium 138 (136-146) mmol/L Potassium 3.3 L (3.5-5.1) mmol/L Chloride 93 L (98-110) mmol/L Carbon Dioxide 29 (21-31) mmol/L BUN 17 (6.0-23.0) mg/dL Creatinine 1.2 (0.6-1.5) mg/dL Est Cr Clr Drug Dosing 34.99 mL/min Estimated GFR (MDRD) 44.5 ml/min Glucose 126 H (60-110) mg/dL POC Glucose 177 H (60-110) mg/dL Calcium 9.4 (8.8-10.8) mg/dL Magnesium (1.5-2.3) mEq/L 08/30/17 08/30/17 08/30/17 Range/Units 05:45 05:45 06:51 WBC 9.06 (4.0-11.0) K/uL RBC 4.40 (4.30-5.90) M/uL Hgb 12.5 (12.0-16.0) g/dL Hct 38.1 (36.0-46.0) % MCV 86.6 (80.0-98.0) fL MCH 28.4 (27.0-32.0) pg MCHC 32.8 (31.0-37.0) g/dL RDW Std Deviation 44.9 (28.0-62.0) fl RDW Coeff of [place] 14 (11.0-15.0) % Plt Count 177 (150-400) K/uL MPV 11.80 (7.40-12.00) fL Neut % (Auto) 67.1 (48.0-80.0) % Lymph % (Auto) 15.6 L (16.0-40.0) % [place] % (Auto) 8.1 (0.0-15.0) % Eos % (Auto) 8.9 H (0.0-7.0) % Baso % (Auto) 0.3 (0.0-1.5) % Neut # (Auto) 6.1 H (1.4-5.7) K/uL Lymph # (Auto) 1.4 (0.6-2.4) K/uL [place] # (Auto) 0.7 (0.0-0.8) K/uL Eos # (Auto) 0.8 H (0.0-0.7) K/uL Baso # (Auto) 0.0 (0.0-0.1) K/uL Add Manual Diff Neutrophils % (Manual) (48.0-80.0) % Band Neutrophils % % Lymphocytes % (Manual) (16.0-40.0) % Monocytes % (Manual) (0.0-15.0) % Eosinophils % (Manual) (0.0-7.0) % Basophils % (Manual) (0.0-1.5) % Nucleated RBC % 0.0 /100WBC Absolute Seg Neuts (1.4-5.7) Band Neutrophils # Lymphocytes # (Manual) (0.6-2.4) Monocytes # (Manual) (0.0-0.8) Eosinophils # (Manual) (0.0-0.7) Basophils # (Manual) (0.0-0.1) Nucleated RBCs # 0 K/uL Sodium 139 (136-146) mmol/L Potassium 2.8 L (3.5-5.1) mmol/L Chloride 91 L (98-110) mmol/L Carbon Dioxide 37 H (21-31) mmol/L BUN 16 (6.0-23.0) mg/dL Creatinine 1.1 (0.6-1.5) mg/dL Est Cr Clr Drug Dosing 38.18 mL/min Estimated GFR (MDRD) 49.2 ml/min Glucose 144 H (60-110) mg/dL POC Glucose 139 H (60-110) mg/dL Calcium 9.4 (8.8-10.8) mg/dL Magnesium 1.6 (1.5-2.3) mEq/L Chriss Results Last 24 Hours: Microbiology 08/28/17 12:05 Gram Stain - Final Leg, Left Wound Culture - Final No Growth Anaerobic Culture - Final NO ANAEROBES ISOLATED Med Orders - Current: Current Medications Hydrocodone Bitart/Acetaminophen ([place] 325-10 Mg) 1 - 2 tab PO Q4H PRN PRN Reason: Pain Last Admin: 08/29/17 18:06 Dose: 2 tab Al Hydroxide/Mg Hydroxide (Mag-Al Plus) 30 ml PO Q4H PRN PRN Reason: indigestion Albuterol (Ventolin Hfa) 0 gm INH Q4H PRN PRN Reason: Shortness of Breath Alprazolam (Xanax) 0.5 mg PO BID PRN PRN Reason: Anxiety Amitriptyline HCl (Elavil) 10 mg PO BID [facility] Last Admin: 08/30/17 08:49 Dose: 10 mg Aspirin (Aspirin) 325 mg PO BID [facility] Last Admin: 08/30/17 08:48 Dose: 325 mg Bisacodyl (Dulcolax) 10 mg RECTAL DAILY PRN PRN Reason: Constipation Bumetanide (Bumex) 3 mg PO BID@0800,1400 [facility] Last Admin: 08/30/17 08:46 Dose: 3 mg Carvedilol (Coreg) 3.125 mg PO BID [facility] Last Admin: 08/30/17 08:49 Dose: 3.125 mg Diphenhydramine HCl (Benadryl) 25 - 50 mg PO Q6H PRN PRN Reason: Itching Docusate Sodium (Colace) 100 mg PO BID [facility] Last Admin: 08/30/17 08:48 Dose: 100 mg Duloxetine HCl (Cymbalta) 60 mg PO DAILY [facility] Last Admin: 08/30/17 08:48 Dose: 60 mg Levofloxacin/Dextrose 750 mg/ (Premix) 150 mls @ 100 mls/hr IV Q48H [facility] Last Admin: 08/30/17 03:20 Dose: 100 mls/hr Metolazone (Zaroxolyn) 2.5 mg PO DAILY [facility] Last Admin: 08/30/17 08:49 Dose: 2.5 mg Midodrine (Midodrine) 5 mg PO TID [facility] Last Admin: 08/30/17 06:09 Dose: 5 mg Ondansetron HCl (Zofran) 4 mg IV Q6HR PRN PRN Reason: NAUSEA/VOMITING Potassium Chloride (Klor-Con M20) 60 meq PO TIDMEALS [facility] Last Admin: 08/30/17 08:46 Dose: 60 meq Pregabalin (Lyrica) 200 mg PO TID [facility] Last Admin: 08/30/17 06:09 Dose: 200 mg Scopolamine (Transderm-Scop) 1.5 mg TRDERM ONARRIVE [facility] Last Admin: 08/28/17 10:41 Dose: 1.5 mg Simvastatin (Zocor) 10 mg PO BEDTIME [facility] Last Admin: 08/29/17 20:19 Dose: 10 mg Sodium Chloride (Saline Flush) 10 ml FLUSH ASDIRECTED PRN PRN Reason: Keep Vein Open Sodium Chloride (Saline Flush) 2.5 ml FLUSH ASDIRECTED PRN PRN Reason: Keep Vein Open Discontinued Medications Acetaminophen (Tylenol Extra Strength) 1,000 mg PO ONARRIVE [facility] Last Admin: 08/28/17 10:42 Dose: 1,000 mg Albuterol (Ventolin Hfa) 2 gm INH Q4H PRN PRN Reason: Shortness of Breath Alprazolam (Xanax) 1 mg PO BID PRN PRN Reason: Anxiety Last Admin: 08/29/17 20:19 Dose: 1 mg Bumetanide (Bumex) 3 mg PO 08/28/17@2100 [facility] Stop: 08/28/17 21:01 Last Admin: 08/28/17 20:24 Dose: 3 mg Celecoxib (Celebrex) 200 mg PO DAILY [facility] Ephedrine Sulfate (Ephedrine Sulfate) Confirm Administered Dose 50 mg .ROUTE .STK-MED ONE Stop: 08/28/17 10:57 Famotidine (Pepcid) 40 mg IVPUSH ONARRIVE [facility] Last Admin: 08/28/17 10:40 Dose: 40 mg Fentanyl (Sublimaze) Confirm Administered Dose 200 mcg .ROUTE .STK-MED ONE Stop: 08/28/17 10:56 Fentanyl (Sublimaze) 50 mcg IVPUSH Q5M PRN PRN Reason: Pain (severe 7-10) Stop: 08/29/17 12:18 Last Admin: 08/28/17 13:40 Dose: 50 mcg Cefazolin Sodium/Dextrose 2 gm (/ Premix) 50 mls @ 100 mls/hr IV ONCALL [facility] Ropivacaine 49.25 ml/Ketorolac Tromethamine 30 mg/Epinephrine HCl 0.5 mg/ Clonidine HCl 80 mcg/ Sodium Chloride 100 mls @ 50 mls/min INJECT ONETIME ONE Stop: 08/28/17 06:01 Last Admin: 08/28/17 14:17 Dose: Not Given Lactated Ringer's (Ringers, Lactated) 1,000 mls @ 100 mls/hr IV ASDIRECTED [facility] Last Admin: 08/28/17 10:35 Dose: 100 mls/hr Cefazolin Sodium/Dextrose 2 gm (/ Premix) 50 mls @ 100 mls/hr IV Q8HR [facility] Stop: 08/28/17 22:29 Last Admin: 08/28/17 17:27 Dose: Not Given Magnesium Sulfate 4 gm/ Premix 100 mls @ 50 mls/hr IV ONETIME ONE Stop: 08/28/17 17:23 Last Admin: 08/28/17 15:50 Dose: 50 mls/hr Cefazolin Sodium/Dextrose 2 gm (/ Premix) 50 mls @ 100 mls/hr IV Q8H [facility] Stop: 08/29/17 01:44 Last Infusion: 08/29/17 02:03 Dose: Infused Potassium Chloride 40 meq/ (Sodium Chloride) 520 mls @ 100 mls/hr IV ONETIME ONE Stop: 08/29/17 13:31 Last Admin: 08/29/17 09:05 Dose: 100 mls/hr Ketorolac Tromethamine (Toradol) 30 mg IVPUSH ONARRIVE [facility] Last Admin: 08/28/17 10:42 Dose: 30 mg Ketorolac Tromethamine (Toradol) 30 mg IVPUSH Q6H [facility] Stop: 08/29/17 09:00 Lidocaine (Xylocaine-Mpf 2%) Confirm Administered Dose 10 ml .ROUTE .STK-MED ONE Stop: 08/28/17 10:56 Midazolam HCl (Versed 1 Mg/Ml) Confirm Administered Dose 2 mg .ROUTE .STK-MED ONE Stop: 08/28/17 10:56 Midodrine (Midodrine) 5 mg PO TID [facility] Last Admin: 08/28/17 15:34 Dose: Not Given Ondansetron HCl (Zofran) Confirm Administered Dose 4 mg .ROUTE .STK-MED ONE Stop: 08/28/17 10:57 Ondansetron HCl (Zofran) Confirm Administered Dose 4 mg .ROUTE .STK-MED ONE Stop: 08/28/17 13:02 Last Admin: 08/28/17 14:18 Dose: Not Given Oxycodone HCl (Oxycontin) 20 mg PO ONARRIVE [facility] Last Admin: 08/28/17 10:43 Dose: 20 mg Propofol (Diprivan 20 Ml) Confirm Administered Dose 400 mg .ROUTE .STK-MED ONE Stop: 08/28/17 10:56 Tranexamic Acid (Cyklokapron) 4,000 mg IV SEECOMMENT [facility] Tranexamic Acid (Cyklokapron) Confirm Administered Dose 4,000 mg .ROUTE .STK- MED ONE Stop: 08/28/17 07:17 - Exam General: Alert, Oriented, Cooperative, Other (appears groggy ) Neck: Supple Lungs: Clear to Auscultation, Normal Respiratory Effort Cardiovascular: Regular Rate, Regular Rhythm, No Murmurs Extremities: Normal Range of Motion, Pedal Edema (+1 BLE) Wound/Incisions: Dressing Dry and Intact Psy/Mental Status: Alert, Other (groggy, possible) Consult PN Assessment/Plan Procedures: Procedures BODY FLUID CELL COUNT (01/24/17) BONE IMAGING 3 PHASE (03/08/17) CHEST X-RAY 1 VIEW FRONTAL (11/18/16) CULTURE OTHR SPECIMN AEROBIC (01/24/17) DRAIN/INJ JOINT/BURSA W/O US (12/08/16) EXAM SYNOVIAL FLUID CRYSTALS (01/24/17) LUNG VENTILAT&PERFUS IMAGING (11/18/16) OFFICE/OUTPATIENT VISIT NEW (09/16/16) OFFICE/OUTPATIENT VISIT NEW (03/26/14) ORGANIC ACID SINGLE QUANT (09/16/16) PROTEIN E-PHORESIS SERUM (09/16/16) SMEAR GRAM STAIN (01/24/17) URINALYSIS NONAUTO W/SCOPE (03/26/14) VITAMIN B-12 (09/16/16) X-RAY EXAM KNEE 4 OR MORE (12/08/16) X-RAY EXAM OF KNEE 3 (06/28/16) (1) S/P revision of total knee SNOMED Code(s): 458514242 Code(s): Z96.659 - PRESENCE OF UNSPECIFIED ARTIFICIAL KNEE JOINT Current Visit: Yes Qualifiers: Laterality: left Qualified Code(s): Z96.652 - Presence of left artificial knee joint (2) HTN (hypertension) SNOMED Code(s): 85280590 Code(s): I10 - ESSENTIAL (PRIMARY) HYPERTENSION Current Visit: Yes Qualifiers: Hypertension type: essential hypertension Qualified Code(s): I10 - Essential (primary) hypertension (3) Hypertensive heart disease SNOMED Code(s): 24331068 Code(s): I11.9 - HYPERTENSIVE HEART DISEASE WITHOUT HEART FAILURE Current Visit: Yes Qualifiers: Heart failure presence: with heart failure Qualified Code(s): I11.0 - Hypertensive heart disease with heart failure (4) Diastolic CHF SNOMED Code(s): 904191893 Code(s): I50.30 - UNSPECIFIED DIASTOLIC (CONGESTIVE) HEART FAILURE Current Visit: Yes Qualifiers: Congestive heart failure chronicity: chronic Qualified Code(s): I50.32 - Chronic diastolic (congestive) heart failure (5) Hx of diabetes mellitus SNOMED Code(s): 152008930 Code(s): Z86.39 - PERSONAL HISTORY OF ENDO, NUTRITIONAL AND METABOLIC DISEASE Current Visit: Yes (6) Depression SNOMED Code(s): 15782684 Code(s): F32.9 - MAJOR DEPRESSIVE DISORDER, SINGLE EPISODE, UNSPECIFIED Current Visit: Yes Qualifiers: Depression Type: unspecified Qualified Code(s): F32.9 - Major depressive disorder, single episode, unspecified (7) Anxiety SNOMED Code(s): 56910894 Code(s): F41.9 - ANXIETY DISORDER, UNSPECIFIED Current Visit: Yes (8) Hypokalemia SNOMED Code(s): 45526418 Code(s): E87.6 - HYPOKALEMIA Current Visit: Yes (9) Hypomagnesemia SNOMED Code(s): 241646064 Code(s): E83.42 - HYPOMAGNESEMIA Current Visit: Yes (10) Morbid obesity with BMI of 40.0-44.9, adult SNOMED Code(s): 489051371 Code(s): E66.01 - MORBID (SEVERE) OBESITY DUE TO EXCESS CALORIES; Z68.41 - BODY MASS INDEX (BMI) 40.0-44.9, ADULT Current Visit: Yes Problem List Initiated/Reviewed/Updated: Yes My Orders Last 24 Hours: My Active Orders 08/29/17 09:00 DULoxetine [Cymbalta] 60 mg PO DAILY Metolazone [Zaroxolyn] 2.5 mg PO DAILY 08/30/17 09:09 ABG [BLOOD GAS ARTERIAL] [BG] Routine Plan: This 67 year old female admitted with revision of L TKA. Hospitalist service consulted for medical management due to comorbidities. 1. S/P revision L TKA: Orders per Dr. Maria 2. HTN: Continue Coreg 3.125 mg BID. 3. Diastolic CHF: Stable, DAILY weight and STRICT I/O, low Na diet. Continue Bumex and Metolazone. Also continue Midodrine for hypotension. 4. Hyokalemia/hypomagnesemia: K+ remains 2.8 today, Continue KCL PO 60 MEQ TID. Magnesium 1.6 today. Continue Telemetry monitoring due to hypokalemia. 5. CAD:Continue ASA and Atorvastatin. Stop Celebrex and Toradol due to CAD and cardiac risk. 6. Confusion/grogginess: Related to narcotics and benzodiazepines? Will check ABG due to increasing bicarb, question retaining CO2 from COPD. ABG appears to show chronic COPD. Did remove Scopolamine patch, which may be contributing to confusion. Will monitor today. 7. Early infiltrate: Question early pneumonia, possible atelectasis, Encourage ambulation and IS use. Continue Levaquin started last evening. VTE prophlyaxis: Would recommend when Ortho deems appropriate, currently ASA 325 BID ordered. Dispo: Would recommended no discharge today due to grogginess and desaturation event last evening, I did speak with Lora SMITH regarding our recommendations.
--- NOTE | 2017-08-30 11:33 | PCM.SN ---
- Free Text/Narrative Note: Notified by RT that they have been unable to obtain ABG. Lt radial artery palpated, 22g needle introduced, 1mL of bright red blood was obtained. Puncture site was secured with 2x2's and bandage. Pt tolerated procedure well.
--- NOTE | 2017-08-30 14:26 | CR ---
EXAM DATE: 08/28/17 PATIENT'S AGE: 67 Patient: LAURO GEORGE Facility: [place], [place] Site . Site : [id number] Study: XRay Chest [id number]/[id number] 1:13:43 AM Ordering Physician: Candace Francois Final Report: INDICATION: Desaturation. TECHNIQUE: Chest radiograph 1 view COMPARISON: 11/18/2016. FINDINGS: Portable AP chest dated 08/30/2017 at 12:35 a.m. Lung volumes are somewhat diminished. Likely bronchovascular crowding at the lung bases. Faintly increased opacification at the medial left lung base. No definite airspace consolidation, blunting of costophrenic sulci, or pneumothorax. Heart size and mediastinal contours are within normal limits. IMPRESSION: 1. Low lung volumes with possible early infiltrate or atelectasis at the left lung base. Dictated by Payam Gómez MD @ 08/30/2017 1:20:02 AM Dictated by: Payam Gómez MD @ 08/30/2017 01:20:09 (Electronic Signature) Report Signed by Proxy. [facility]
[2017-08-30] MEDS ORDERED: Potassium Chloride 20 MEQ Tab.ER PO ONE ×2 (19:45→23:00)
--- NOTE | 2017-08-30 19:46 | PCM.SN ---
- Free Text/Narrative Note: extra po K ordered this pm despite tid scheduled dosing as she had a serum K level of 2.8 this am
[2017-08-30] MEDS: Simvastatin 10 MG Tab PO SCH (20:43)
[2017-08-30] MEDS: Albuterol/Ipratropium 3.0-0.5 MG/3 ML Neb Soln NEB SCH (22:09)
[2017-08-31] MEDS: Albuterol/Ipratropium 3.0-0.5 MG/3 ML Neb Soln NEB SCH ×5 (01:39→15:22)
[2017-08-31] MEDS: Midodrine 5 MG Tab PO SCH ×2 (05:43→14:37)
[2017-08-31] MEDS: Pregabalin 200 MG Cap PO SCH ×2 (05:43→14:31)
[2017-08-31] MEDS: Acetaminophen/HYDROcodone 325-10 MG Tab PO PRN ×3 (06:17→14:33)
--- NOTE | 2017-08-31 08:35 | PCM.SURGPN ---
<Lora Rodriguez - Last Filed: 08/31/17 08:35> - General Info Date of Service: 08/31/17 Date of Surgery/Procedure: 08/28/17 POD#: 3 Functional Status: Reports: Pain Controlled, Tolerating Diet, Ambulating, Urinating - Review of Systems General: Reports: No Symptoms Pulmonary: Reports: No Symptoms Cardiovascular: Reports: No Symptoms Gastrointestinal: Reports: No Symptoms Genitourinary: Reports: No Symptoms Musculoskeletal: Reports: Leg Pain, Joint Pain, Joint Swelling Neurological: Reports: No Symptoms Psychiatric: Reports: No Symptoms - Patient Data Vitals - Most Recent: Last Vital Signs Temp 36.2 C 08/31/17 04:00 Pulse 67 08/31/17 04:00 Resp 18 08/31/17 04:00 BP 100/62 08/31/17 04:00 Pulse Ox 93 L 08/31/17 04:00 Weight - Most Recent: 106 kg I&O - Last 24 Hours: Intake & Output 08/30/17 08/31/17 08/31/17 22:59 06:59 14:59 Intake Total 1040 800 Output Total 2600 400 Balance -1560 400 Lab Results Last 24 Hrs: Laboratory Results - last 24 hr 08/30/17 08/30/17 08/30/17 Range/Units 11:25 11:52 13:05 WBC (4.0-11.0) K/uL RBC (4.30-5.90) M/uL Hgb (12.0-16.0) g/dL Hct (36.0-46.0) % MCV (80.0-98.0) fL MCH (27.0-32.0) pg MCHC (31.0-37.0) g/dL RDW Std Deviation (28.0-62.0) fl RDW Coeff of So (11.0-15.0) % Plt Count (150-400) K/uL MPV (7.40-12.00) fL Neut % (Auto) (48.0-80.0) % Lymph % (Auto) (16.0-40.0) % [place] % (Auto) (0.0-15.0) % Eos % (Auto) (0.0-7.0) % Baso % (Auto) (0.0-1.5) % Neut # (Auto) (1.4-5.7) K/uL Lymph # (Auto) (0.6-2.4) K/uL [place] # (Auto) (0.0-0.8) K/uL Eos # (Auto) (0.0-0.7) K/uL Baso # (Auto) (0.0-0.1) K/uL Nucleated RBC % /100WBC Nucleated RBCs # K/uL ABG pH 7.456 H (7.35-7.45) ABG pCO2 60 H (35-45) mmHG ABG pO2 65 L (75-100) mmHG ABG HCO3 42 H (22-26) mEq/L ABG Total CO2 38.6 ABG Base Excess 15.8 H (-2.0-2.0) Sodium (136-146) mmol/L Potassium (3.5-5.1) mmol/L Chloride (98-110) mmol/L Carbon Dioxide (21-31) mmol/L BUN (6.0-23.0) mg/dL Creatinine (0.6-1.5) mg/dL Est Cr Clr Drug Dosing mL/min Estimated GFR (MDRD) ml/min Glucose (60-110) mg/dL POC Glucose 129 H (60-110) mg/dL Calcium (8.8-10.8) mg/dL Urine Color YELLOW Urine Appearance CLEAR Urine pH 6.0 (5.0-8.0) Ur Specific [place] <= 1.005 (1.001-1.035) Urine Protein NEGATIVE (NEGATIVE) mg/dL Urine Glucose (UA) NEGATIVE (NEGATIVE) mg/dL Urine Ketones NEGATIVE (NEGATIVE) mg/dL Urine Occult Blood MODERATE (NEGATIVE) Urine Nitrite NEGATIVE (NEGATIVE) Urine Bilirubin NEGATIVE (NEGATIVE) Urine Urobilinogen 0.2 (<2.0) EU/dL Ur Leukocyte Esterase NEGATIVE (NEGATIVE) Urine RBC 0-2 (0-2/HPF) Urine WBC 0-1 (0-5/HPF) Ur Epithelial Cells RARE (NONE-FEW) Urine Bacteria RARE (NEGATIVE) 08/30/17 08/30/17 08/31/17 Range/Units 15:55 20:40 05:55 WBC (4.0-11.0) K/uL RBC (4.30-5.90) M/uL Hgb (12.0-16.0) g/dL Hct (36.0-46.0) % MCV (80.0-98.0) fL MCH (27.0-32.0) pg MCHC (31.0-37.0) g/dL RDW Std Deviation (28.0-62.0) fl RDW Coeff of So (11.0-15.0) % Plt Count (150-400) K/uL MPV (7.40-12.00) fL Neut % (Auto) (48.0-80.0) % Lymph % (Auto) (16.0-40.0) % [place] % (Auto) (0.0-15.0) % Eos % (Auto) (0.0-7.0) % Baso % (Auto) (0.0-1.5) % Neut # (Auto) (1.4-5.7) K/uL Lymph # (Auto) (0.6-2.4) K/uL [place] # (Auto) (0.0-0.8) K/uL Eos # (Auto) (0.0-0.7) K/uL Baso # (Auto) (0.0-0.1) K/uL Nucleated RBC % /100WBC Nucleated RBCs # K/uL ABG pH (7.35-7.45) ABG pCO2 (35-45) mmHG ABG pO2 (75-100) mmHG ABG HCO3 (22-26) mEq/L ABG Total CO2 ABG Base Excess (-2.0-2.0) Sodium (136-146) mmol/L Potassium (3.5-5.1) mmol/L Chloride (98-110) mmol/L Carbon Dioxide (21-31) mmol/L BUN (6.0-23.0) mg/dL Creatinine (0.6-1.5) mg/dL Est Cr Clr Drug Dosing mL/min Estimated GFR (MDRD) ml/min Glucose (60-110) mg/dL POC Glucose 111 H 274 H 162 H (60-110) mg/dL Calcium (8.8-10.8) mg/dL Urine Color Urine Appearance Urine pH (5.0-8.0) Ur Specific [place] (1.001-1.035) Urine Protein (NEGATIVE) mg/dL Urine Glucose (UA) (NEGATIVE) mg/dL Urine Ketones (NEGATIVE) mg/dL Urine Occult Blood (NEGATIVE) Urine Nitrite (NEGATIVE) Urine Bilirubin (NEGATIVE) Urine Urobilinogen (<2.0) EU/dL Ur Leukocyte Esterase (NEGATIVE) Urine RBC (0-2/HPF) Urine WBC (0-5/HPF) Ur Epithelial Cells (NONE-FEW) Urine Bacteria (NEGATIVE) 08/31/17 08/31/17 Range/Units 07:00 07:00 WBC 8.85 (4.0-11.0) K/uL RBC 4.26 L (4.30-5.90) M/uL Hgb 12.2 (12.0-16.0) g/dL Hct 37.2 (36.0-46.0) % MCV 87.3 (80.0-98.0) fL MCH 28.6 (27.0-32.0) pg MCHC 32.8 (31.0-37.0) g/dL RDW Std Deviation 45.6 (28.0-62.0) fl RDW Coeff of So 14 (11.0-15.0) % Plt Count 181 (150-400) K/uL MPV 12.10 H (7.40-12.00) fL Neut % (Auto) 58.5 (48.0-80.0) % Lymph % (Auto) 20.5 (16.0-40.0) % [place] % (Auto) 8.9 (0.0-15.0) % Eos % (Auto) 11.8 H (0.0-7.0) % Baso % (Auto) 0.3 (0.0-1.5) % Neut # (Auto) 5.2 (1.4-5.7) K/uL Lymph # (Auto) 1.8 (0.6-2.4) K/uL [place] # (Auto) 0.8 (0.0-0.8) K/uL Eos # (Auto) 1.0 H (0.0-0.7) K/uL Baso # (Auto) 0.0 (0.0-0.1) K/uL Nucleated RBC % 0.0 /100WBC Nucleated RBCs # 0 K/uL ABG pH (7.35-7.45) ABG pCO2 (35-45) mmHG ABG pO2 (75-100) mmHG ABG HCO3 (22-26) mEq/L ABG Total CO2 ABG Base Excess (-2.0-2.0) Sodium 139 (136-146) mmol/L Potassium 3.9 (3.5-5.1) mmol/L Chloride 92 L (98-110) mmol/L Carbon Dioxide 32 H (21-31) mmol/L BUN 16 (6.0-23.0) mg/dL Creatinine 1.0 (0.6-1.5) mg/dL Est Cr Clr Drug Dosing 41.99 mL/min Estimated GFR (MDRD) 55.0 ml/min Glucose 131 H (60-110) mg/dL POC Glucose (60-110) mg/dL Calcium 9.4 (8.8-10.8) mg/dL Urine Color Urine Appearance Urine pH (5.0-8.0) Ur Specific [place] (1.001-1.035) Urine Protein (NEGATIVE) mg/dL Urine Glucose (UA) (NEGATIVE) mg/dL Urine Ketones (NEGATIVE) mg/dL Urine Occult Blood (NEGATIVE) Urine Nitrite (NEGATIVE) Urine Bilirubin (NEGATIVE) Urine Urobilinogen (<2.0) EU/dL Ur Leukocyte Esterase (NEGATIVE) Urine RBC (0-2/HPF) Urine WBC (0-5/HPF) Ur Epithelial Cells (NONE-FEW) Urine Bacteria (NEGATIVE) Chriss Results Last 24 Hrs: Microbiology 08/28/17 12:05 Gram Stain - Final Leg, Left Wound Culture - Final No Growth Anaerobic Culture - Final NO ANAEROBES ISOLATED Med Orders - Current: Current Medications Hydrocodone Bitart/Acetaminophen ([place] 325-10 Mg) 1 - 2 tab PO Q4H PRN PRN Reason: Pain Last Admin: 08/31/17 06:17 Dose: 2 tab Al Hydroxide/Mg Hydroxide (Mag-Al Plus) 30 ml PO Q4H PRN PRN Reason: indigestion Albuterol (Ventolin Hfa) 0 gm INH Q4H PRN PRN Reason: Shortness of Breath Albuterol/Ipratropium (Duoneb 3.0-0.5 Mg/3 Ml) 3 ml NEB Q4H ANN MARIE Last Admin: 08/31/17 06:14 Dose: 3 ml Alprazolam (Xanax) 0.5 mg PO BID PRN PRN Reason: Anxiety Amitriptyline HCl (Elavil) 10 mg PO BID [facility] Last Admin: 08/30/17 20:43 Dose: 10 mg Aspirin (Aspirin) 325 mg PO BID [facility] Last Admin: 08/30/17 20:44 Dose: 325 mg Bisacodyl (Dulcolax) 10 mg RECTAL DAILY PRN PRN Reason: Constipation Bumetanide (Bumex) 3 mg PO BID@0800,1400 [facility] Last Admin: 08/30/17 13:43 Dose: 3 mg Carvedilol (Coreg) 3.125 mg PO BID [facility] Last Admin: 08/30/17 20:44 Dose: 3.125 mg Diphenhydramine HCl (Benadryl) 25 - 50 mg PO Q6H PRN PRN Reason: Itching Docusate Sodium (Colace) 100 mg PO BID [facility] Last Admin: 08/30/17 20:43 Dose: 100 mg Duloxetine HCl (Cymbalta) 60 mg PO DAILY [facility] Last Admin: 08/30/17 08:48 Dose: 60 mg Levofloxacin/Dextrose 750 mg/ (Premix) 150 mls @ 100 mls/hr IV Q48H [facility] Last Admin: 08/30/17 03:20 Dose: 100 mls/hr Metolazone (Zaroxolyn) 2.5 mg PO DAILY [facility] Last Admin: 08/30/17 08:49 Dose: 2.5 mg Midodrine (Midodrine) 5 mg PO TID [facility] Last Admin: 08/31/17 05:43 Dose: 5 mg Ondansetron HCl (Zofran) 4 mg IV Q6HR PRN PRN Reason: NAUSEA/VOMITING Potassium Chloride (Klor-Con M20) 60 meq PO TIDMEALS [facility] Last Admin: 08/30/17 16:49 Dose: 60 meq Pregabalin (Lyrica) 200 mg PO TID [facility] Last Admin: 08/31/17 05:43 Dose: 200 mg Simvastatin (Zocor) 10 mg PO BEDTIME [facility] Last Admin: 08/30/17 20:43 Dose: 10 mg Sodium Chloride (Saline Flush) 10 ml FLUSH ASDIRECTED PRN PRN Reason: Keep Vein Open Sodium Chloride (Saline Flush) 2.5 ml FLUSH ASDIRECTED PRN PRN Reason: Keep Vein Open Discontinued Medications Acetaminophen (Tylenol Extra Strength) 1,000 mg PO ONARRIVE [facility] Last Admin: 08/28/17 10:42 Dose: 1,000 mg Albuterol (Ventolin Hfa) 2 gm INH Q4H PRN PRN Reason: Shortness of Breath Alprazolam (Xanax) 1 mg PO BID PRN PRN Reason: Anxiety Last Admin: 08/29/17 20:19 Dose: 1 mg Bumetanide (Bumex) 3 mg PO 08/28/17@2100 [facility] Stop: 08/28/17 21:01 Last Admin: 08/28/17 20:24 Dose: 3 mg Celecoxib (Celebrex) 200 mg PO DAILY [facility] Ephedrine Sulfate (Ephedrine Sulfate) Confirm Administered Dose 50 mg .ROUTE .STK-MED ONE Stop: 08/28/17 10:57 Famotidine (Pepcid) 40 mg IVPUSH ONARRIVE [facility] Last Admin: 08/28/17 10:40 Dose: 40 mg Fentanyl (Sublimaze) Confirm Administered Dose 200 mcg .ROUTE .STK-MED ONE Stop: 08/28/17 10:56 Fentanyl (Sublimaze) 50 mcg IVPUSH Q5M PRN PRN Reason: Pain (severe 7-10) Stop: 08/29/17 12:18 Last Admin: 08/28/17 13:40 Dose: 50 mcg Cefazolin Sodium/Dextrose 2 gm (/ Premix) 50 mls @ 100 mls/hr IV ONCALL [facility] Ropivacaine 49.25 ml/Ketorolac Tromethamine 30 mg/Epinephrine HCl 0.5 mg/ Clonidine HCl 80 mcg/ Sodium Chloride 100 mls @ 50 mls/min INJECT ONETIME ONE Stop: 08/28/17 06:01 Last Admin: 08/28/17 14:17 Dose: Not Given Lactated Ringer's (Ringers, Lactated) 1,000 mls @ 100 mls/hr IV ASDIRECTED [facility] Last Admin: 08/28/17 10:35 Dose: 100 mls/hr Cefazolin Sodium/Dextrose 2 gm (/ Premix) 50 mls @ 100 mls/hr IV Q8HR [facility] Stop: 08/28/17 22:29 Last Admin: 08/28/17 17:27 Dose: Not Given Magnesium Sulfate 4 gm/ Premix 100 mls @ 50 mls/hr IV ONETIME ONE Stop: 08/28/17 17:23 Last Admin: 08/28/17 15:50 Dose: 50 mls/hr Cefazolin Sodium/Dextrose 2 gm (/ Premix) 50 mls @ 100 mls/hr IV Q8H ANN MARIE Stop: 08/29/17 01:44 Last Infusion: 08/29/17 02:03 Dose: Infused Potassium Chloride 40 meq/ (Sodium Chloride) 520 mls @ 100 mls/hr IV ONETIME ONE Stop: 08/29/17 13:31 Last Admin: 08/29/17 09:05 Dose: 100 mls/hr Ketorolac Tromethamine (Toradol) 30 mg IVPUSH ONARRIVE ANN MARIE Last Admin: 08/28/17 10:42 Dose: 30 mg Ketorolac Tromethamine (Toradol) 30 mg IVPUSH Q6H ANN MARIE Stop: 08/29/17 09:00 Lidocaine (Xylocaine-Mpf 2%) Confirm Administered Dose 10 ml .ROUTE .STK-MED ONE Stop: 08/28/17 10:56 Midazolam HCl (Versed 1 Mg/Ml) Confirm Administered Dose 2 mg .ROUTE .STK-MED ONE Stop: 08/28/17 10:56 Midodrine (Midodrine) 5 mg PO TID ANN MARIE Last Admin: 08/28/17 15:34 Dose: Not Given Ondansetron HCl (Zofran) Confirm Administered Dose 4 mg .ROUTE .STK-MED ONE Stop: 08/28/17 10:57 Ondansetron HCl (Zofran) Confirm Administered Dose 4 mg .ROUTE .STK-MED ONE Stop: 08/28/17 13:02 Last Admin: 08/28/17 14:18 Dose: Not Given Oxycodone HCl (Oxycontin) 20 mg PO ONARRIVE ANN MARIE Last Admin: 08/28/17 10:43 Dose: 20 mg Potassium Chloride (Klor-Con M20) 40 meq PO ONETIME ONE Stop: 08/30/17 19:46 Last Admin: 08/30/17 20:44 Dose: 40 meq Potassium Chloride (Klor-Con M20) 40 meq PO ONETIME ONE Stop: 08/30/17 23:01 Last Admin: 08/30/17 23:25 Dose: 40 meq Propofol (Diprivan 20 Ml) Confirm Administered Dose 400 mg .ROUTE .STK-MED ONE Stop: 08/28/17 10:56 Scopolamine (Transderm-Scop) 1.5 mg TRDERM ONARRIVE [facility] Last Admin: 08/28/17 10:41 Dose: 1.5 mg Tranexamic Acid (Cyklokapron) 4,000 mg IV SEECOMMENT ANN MAREI Tranexamic Acid (Cyklokapron) Confirm Administered Dose 4,000 mg .ROUTE .STK- MED ONE Stop: 08/28/17 07:17 - Exam Wound/Incisions: Dressing Dry and Intact Quality Assessment: Supplemental Oxygen General: Alert, Oriented HEENT: Pupils Equal, Pupils Reactive Neck: Trachea Midline Lungs: Normal Respiratory Effort Cardiovascular: Regular Rate Extremities: Other Neurological: No New Focal Deficit Psy/Mental Status: Alert, Normal Affect, Normal Mood - Problem List Review Problem List Initiated/Reviewed/Updated: Yes - My Orders Last 24 Hours: Active Orders 24 hr Category Date Time Status RT Aerosol Therapy [RC] ASDIRECTED Care 08/30/17 20:48 Active Albuterol/Ipratropium [DuoNeb 3.0-0.5 MG/3 ML] Med 08/30/17 21:00 Active 3 ml NEB Q4H Medication Orders Hydrocodone Bitart/Acetaminophen ([place] 325-10 Mg) 1 - 2 tab PO Q4H PRN PRN Reason: Pain Last Admin: 08/31/17 06:17 Dose: 2 tab Admin: 08/30/17 16:52 Dose: 2 tab Admin: 08/30/17 09:24 Dose: 2 tab Admin: 08/29/17 18:06 Dose: 2 tab Admin: 08/29/17 11:16 Dose: 2 tab Admin: 08/28/17 20:13 Dose: 2 tab Admin: 08/28/17 14:40 Dose: 2 tab Al Hydroxide/Mg Hydroxide (Mag-Al Plus) 30 ml PO Q4H PRN PRN Reason: indigestion Albuterol (Ventolin Hfa) 0 gm INH Q4H PRN PRN Reason: Shortness of Breath Albuterol/Ipratropium (Duoneb 3.0-0.5 Mg/3 Ml) 3 ml NEB Q4H ANN MARIE Last Admin: 08/31/17 06:14 Dose: 3 ml Admin: 08/31/17 01:39 Dose: 3 ml Admin: 08/30/17 22:09 Dose: 3 ml Alprazolam (Xanax) 0.5 mg PO BID PRN PRN Reason: Anxiety Amitriptyline HCl (Elavil) 10 mg PO BID [facility] Last Admin: 08/30/17 20:43 Dose: 10 mg Admin: 08/30/17 08:49 Dose: 10 mg Admin: 08/29/17 20:19 Dose: 10 mg Admin: 08/29/17 08:44 Dose: 10 mg Admin: 08/28/17 20:17 Dose: 10 mg Aspirin (Aspirin) 325 mg PO BID [facility] Last Admin: 08/30/17 20:44 Dose: 325 mg Admin: 08/30/17 08:48 Dose: 325 mg Admin: 08/29/17 20:21 Dose: Not Given Admin: 08/29/17 08:43 Dose: 325 mg Bisacodyl (Dulcolax) 10 mg RECTAL DAILY PRN PRN Reason: Constipation Bumetanide (Bumex) 3 mg PO BID@0800,1400 [facility] Last Admin: 08/30/17 13:43 Dose: 3 mg Admin: 08/30/17 08:46 Dose: 3 mg Admin: 08/29/17 13:45 Dose: 3 mg Admin: 08/29/17 08:46 Dose: 3 mg Carvedilol (Coreg) 3.125 mg PO BID [facility] Last Admin: 08/30/17 20:44 Dose: 3.125 mg Admin: 08/30/17 08:49 Dose: 3.125 mg Admin: 08/29/17 20:19 Dose: 3.125 mg Admin: 08/29/17 08:43 Dose: 3.125 mg Admin: 08/28/17 20:14 Dose: 3.125 mg Diphenhydramine HCl (Benadryl) 25 - 50 mg PO Q6H PRN PRN Reason: Itching Docusate Sodium (Colace) 100 mg PO BID [facility] Last Admin: 08/30/17 20:43 Dose: 100 mg Admin: 08/30/17 08:48 Dose: 100 mg Admin: 08/29/17 20:20 Dose: Not Given Admin: 08/29/17 08:42 Dose: 100 mg Admin: 08/28/17 20:17 Dose: 100 mg Duloxetine HCl (Cymbalta) 60 mg PO DAILY [facility] Last Admin: 08/30/17 08:48 Dose: 60 mg Admin: 08/29/17 08:44 Dose: 60 mg Levofloxacin/Dextrose 750 mg/ (Premix) 150 mls @ 100 mls/hr IV Q48H [facility] Last Admin: 08/30/17 03:20 Dose: 100 mls/hr Metolazone (Zaroxolyn) 2.5 mg PO DAILY [facility] Last Admin: 08/30/17 08:49 Dose: 2.5 mg Admin: 08/29/17 08:44 Dose: 2.5 mg Midodrine (Midodrine) 5 mg PO TID [facility] Last Admin: 08/31/17 05:43 Dose: 5 mg Admin: 08/30/17 23:25 Dose: 5 mg Admin: 08/30/17 13:43 Dose: 5 mg Admin: 08/30/17 06:09 Dose: 5 mg Admin: 08/29/17 22:02 Dose: 5 mg Admin: 08/29/17 13:48 Dose: 5 mg Admin: 08/29/17 05:49 Dose: 5 mg Admin: 08/28/17 21:19 Dose: 5 mg Admin: 08/28/17 14:48 Dose: 5 mg Ondansetron HCl (Zofran) 4 mg IV Q6HR PRN PRN Reason: NAUSEA/VOMITING Potassium Chloride (Klor-Con M20) 60 meq PO TIDMEALS [facility] Last Admin: 08/30/17 16:49 Dose: 60 meq Admin: 08/30/17 11:50 Dose: 60 meq Admin: 08/30/17 08:46 Dose: 60 meq Admin: 08/29/17 18:06 Dose: 60 meq Admin: 08/29/17 11:48 Dose: 60 meq Admin: 08/29/17 08:41 Dose: 60 meq Admin: 08/28/17 17:26 Dose: 60 meq Pregabalin (Lyrica) 200 mg PO TID [facility] Last Admin: 08/31/17 05:43 Dose: 200 mg Admin: 08/30/17 23:25 Dose: 200 mg Admin: 08/30/17 13:43 Dose: 200 mg Admin: 08/30/17 06:09 Dose: 200 mg Admin: 08/29/17 22:02 Dose: 200 mg Admin: 08/29/17 13:46 Dose: 200 mg Admin: 08/29/17 05:50 Dose: 200 mg Admin: 08/28/17 21:18 Dose: 200 mg Simvastatin (Zocor) 10 mg PO BEDTIME ANN MARIE Last Admin: 08/30/17 20:43 Dose: 10 mg Admin: 08/29/17 20:19 Dose: 10 mg Admin: 08/28/17 20:17 Dose: 10 mg Sodium Chloride (Saline Flush) 10 ml FLUSH ASDIRECTED PRN PRN Reason: Keep Vein Open Sodium Chloride (Saline Flush) 2.5 ml FLUSH ASDIRECTED PRN PRN Reason: Keep Vein Open - Assessment Assessment (Free Text/Narrative):: Patient up to chair this AM. Pain controlled. Tolerating diet. Ambulating. VSS. Hgb 12.2. UO 4300 mL. O2 93% on 4 nasal cannula. - Plan Plan (Free Text/Narrative):: Continue PT. Continue pain management. Encourage ambulation. Wean oxygen via nasal cannula as patient is not on O2 at home. Discharge home this afternoon per hospitalist discretion. <Priscila Maria R - Last Filed: 08/31/17 16:02> - Patient Data Vitals - Most Recent: Last Vital Signs Temp 98.3 F 08/31/17 12:00 Pulse 86 08/31/17 12:00 Resp 16 08/31/17 12:00 BP 99/62 08/31/17 12:00 Pulse Ox 94 L 08/31/17 12:00 I&O - Last 24 Hours: Intake & Output 08/31/17 08/31/17 08/31/17 06:59 14:59 22:59 Intake Total 800 1100 Output Total 400 800 Balance 400 300 Lab Results Last 24 Hrs: Laboratory Results - last 24 hr 08/30/17 08/30/17 08/31/17 Range/Units 15:55 20:40 05:55 WBC (4.0-11.0) K/uL RBC (4.30-5.90) M/uL Hgb (12.0-16.0) g/dL Hct (36.0-46.0) % MCV (80.0-98.0) fL MCH (27.0-32.0) pg MCHC (31.0-37.0) g/dL RDW Std Deviation (28.0-62.0) fl RDW Coeff of So (11.0-15.0) % Plt Count (150-400) K/uL MPV (7.40-12.00) fL Neut % (Auto) (48.0-80.0) % Lymph % (Auto) (16.0-40.0) % [place] % (Auto) (0.0-15.0) % Eos % (Auto) (0.0-7.0) % Baso % (Auto) (0.0-1.5) % Neut # (Auto) (1.4-5.7) K/uL Lymph # (Auto) (0.6-2.4) K/uL [place] # (Auto) (0.0-0.8) K/uL Eos # (Auto) (0.0-0.7) K/uL Baso # (Auto) (0.0-0.1) K/uL Nucleated RBC % /100WBC Nucleated RBCs # K/uL Sodium (136-146) mmol/L Potassium (3.5-5.1) mmol/L Chloride (98-110) mmol/L Carbon Dioxide (21-31) mmol/L BUN (6.0-23.0) mg/dL Creatinine (0.6-1.5) mg/dL Est Cr Clr Drug Dosing mL/min Estimated GFR (MDRD) ml/min Glucose (60-110) mg/dL POC Glucose 111 H 274 H 162 H (60-110) mg/dL Calcium (8.8-10.8) mg/dL 08/31/17 08/31/17 08/31/17 Range/Units 07:00 07:00 11:48 WBC 8.85 (4.0-11.0) K/uL RBC 4.26 L (4.30-5.90) M/uL Hgb 12.2 (12.0-16.0) g/dL Hct 37.2 (36.0-46.0) % MCV 87.3 (80.0-98.0) fL MCH 28.6 (27.0-32.0) pg MCHC 32.8 (31.0-37.0) g/dL RDW Std Deviation 45.6 (28.0-62.0) fl RDW Coeff of So 14 (11.0-15.0) % Plt Count 181 (150-400) K/uL MPV 12.10 H (7.40-12.00) fL Neut % (Auto) 58.5 (48.0-80.0) % Lymph % (Auto) 20.5 (16.0-40.0) % [place] % (Auto) 8.9 (0.0-15.0) % Eos % (Auto) 11.8 H (0.0-7.0) % Baso % (Auto) 0.3 (0.0-1.5) % Neut # (Auto) 5.2 (1.4-5.7) K/uL Lymph # (Auto) 1.8 (0.6-2.4) K/uL [place] # (Auto) 0.8 (0.0-0.8) K/uL Eos # (Auto) 1.0 H (0.0-0.7) K/uL Baso # (Auto) 0.0 (0.0-0.1) K/uL Nucleated RBC % 0.0 /100WBC Nucleated RBCs # 0 K/uL Sodium 139 (136-146) mmol/L Potassium 3.9 (3.5-5.1) mmol/L Chloride 92 L (98-110) mmol/L Carbon Dioxide 32 H (21-31) mmol/L BUN 16 (6.0-23.0) mg/dL Creatinine 1.0 (0.6-1.5) mg/dL Est Cr Clr Drug Dosing 41.99 mL/min Estimated GFR (MDRD) 55.0 ml/min Glucose 131 H (60-110) mg/dL POC Glucose 147 H (60-110) mg/dL Calcium 9.4 (8.8-10.8) mg/dL Med Orders - Current: Current Medications Discontinued Medications Acetaminophen (Tylenol Extra Strength) 1,000 mg PO ONARRIVE ANN MARIE Last Admin: 08/28/17 10:42 Dose: 1,000 mg Hydrocodone Bitart/Acetaminophen ([place] 325-10 Mg) 1 - 2 tab PO Q4H PRN PRN Reason: Pain Last Admin: 08/31/17 14:33 Dose: 2 tab Al Hydroxide/Mg Hydroxide (Mag-Al Plus) 30 ml PO Q4H PRN PRN Reason: indigestion Albuterol (Ventolin Hfa) 2 gm INH Q4H PRN PRN Reason: Shortness of Breath Albuterol (Ventolin Hfa) 0 gm INH Q4H PRN PRN Reason: Shortness of Breath Albuterol/Ipratropium (Duoneb 3.0-0.5 Mg/3 Ml) 3 ml NEB Q4H [facility] Last Admin: 08/31/17 15:08 Dose: Not Given Albuterol/Ipratropium (Duoneb 3.0-0.5 Mg/3 Ml) 3 ml NEB Q4HRRT [facility] Last Admin: 08/31/17 15:22 Dose: Not Given Alprazolam (Xanax) 1 mg PO BID PRN PRN Reason: Anxiety Last Admin: 08/29/17 20:19 Dose: 1 mg Alprazolam (Xanax) 0.5 mg PO BID PRN PRN Reason: Anxiety Amitriptyline HCl (Elavil) 10 mg PO BID [facility] Last Admin: 08/31/17 08:40 Dose: 10 mg Aspirin (Aspirin) 325 mg PO BID [facility] Last Admin: 08/31/17 08:39 Dose: 325 mg Bisacodyl (Dulcolax) 10 mg RECTAL DAILY PRN PRN Reason: Constipation Bumetanide (Bumex) 3 mg PO BID@0800,1400 [facility] Last Admin: 08/31/17 14:29 Dose: 3 mg Bumetanide (Bumex) 3 mg PO 08/28/17@2100 [facility] Stop: 08/28/17 21:01 Last Admin: 08/28/17 20:24 Dose: 3 mg Carvedilol (Coreg) 3.125 mg PO BID [facility] Last Admin: 08/31/17 08:40 Dose: 3.125 mg Celecoxib (Celebrex) 200 mg PO DAILY [facility] Diphenhydramine HCl (Benadryl) 25 - 50 mg PO Q6H PRN PRN Reason: Itching Docusate Sodium (Colace) 100 mg PO BID [facility] Last Admin: 08/31/17 08:40 Dose: 100 mg Duloxetine HCl (Cymbalta) 60 mg PO DAILY [facility] Last Admin: 08/31/17 08:40 Dose: 60 mg Ephedrine Sulfate (Ephedrine Sulfate) Confirm Administered Dose 50 mg .ROUTE .STK-MED ONE Stop: 08/28/17 10:57 Famotidine (Pepcid) 40 mg IVPUSH ONARRIVE [facility] Last Admin: 08/28/17 10:40 Dose: 40 mg Fentanyl (Sublimaze) Confirm Administered Dose 200 mcg .ROUTE .STK-MED ONE Stop: 08/28/17 10:56 Fentanyl (Sublimaze) 50 mcg IVPUSH Q5M PRN PRN Reason: Pain (severe 7-10) Stop: 08/29/17 12:18 Last Admin: 08/28/17 13:40 Dose: 50 mcg Cefazolin Sodium/Dextrose 2 gm (/ Premix) 50 mls @ 100 mls/hr IV ONCALL [facility] Ropivacaine 49.25 ml/Ketorolac Tromethamine 30 mg/Epinephrine HCl 0.5 mg/ Clonidine HCl 80 mcg/ Sodium Chloride 100 mls @ 50 mls/min INJECT ONETIME ONE Stop: 08/28/17 06:01 Last Admin: 08/28/17 14:17 Dose: Not Given Lactated Ringer's (Ringers, Lactated) 1,000 mls @ 100 mls/hr IV ASDIRECTED [facility] Last Admin: 08/28/17 10:35 Dose: 100 mls/hr Cefazolin Sodium/Dextrose 2 gm (/ Premix) 50 mls @ 100 mls/hr IV Q8HR [facility] Stop: 08/28/17 22:29 Last Admin: 08/28/17 17:27 Dose: Not Given Magnesium Sulfate 4 gm/ Premix 100 mls @ 50 mls/hr IV ONETIME ONE Stop: 08/28/17 17:23 Last Admin: 08/28/17 15:50 Dose: 50 mls/hr Cefazolin Sodium/Dextrose 2 gm (/ Premix) 50 mls @ 100 mls/hr IV Q8H [facility] Stop: 08/29/17 01:44 Last Infusion: 08/29/17 02:03 Dose: Infused Potassium Chloride 40 meq/ (Sodium Chloride) 520 mls @ 100 mls/hr IV ONETIME ONE Stop: 08/29/17 13:31 Last Admin: 08/29/17 09:05 Dose: 100 mls/hr Levofloxacin/Dextrose 750 mg/ (Premix) 150 mls @ 100 mls/hr IV Q48H [facility] Last Admin: 08/30/17 03:20 Dose: 100 mls/hr Ketorolac Tromethamine (Toradol) 30 mg IVPUSH ONARRIVE [facility] Last Admin: 08/28/17 10:42 Dose: 30 mg Ketorolac Tromethamine (Toradol) 30 mg IVPUSH Q6H ANN MARIE Stop: 08/29/17 09:00 Lidocaine (Xylocaine-Mpf 2%) Confirm Administered Dose 10 ml .ROUTE .STK-MED ONE Stop: 08/28/17 10:56 Metolazone (Zaroxolyn) 2.5 mg PO DAILY [facility] Last Admin: 08/31/17 08:41 Dose: 2.5 mg Midazolam HCl (Versed 1 Mg/Ml) Confirm Administered Dose 2 mg .ROUTE .STK-MED ONE Stop: 08/28/17 10:56 Midodrine (Midodrine) 5 mg PO TID [facility] Last Admin: 08/28/17 15:34 Dose: Not Given Midodrine (Midodrine) 5 mg PO TID [facility] Last Admin: 08/31/17 14:37 Dose: 5 mg Ondansetron HCl (Zofran) Confirm Administered Dose 4 mg .ROUTE .STK-MED ONE Stop: 08/28/17 10:57 Ondansetron HCl (Zofran) 4 mg IV Q6HR PRN PRN Reason: NAUSEA/VOMITING Ondansetron HCl (Zofran) Confirm Administered Dose 4 mg .ROUTE .STK-MED ONE Stop: 08/28/17 13:02 Last Admin: 08/28/17 14:18 Dose: Not Given Oxycodone HCl (Oxycontin) 20 mg PO ONARRIVE [facility] Last Admin: 08/28/17 10:43 Dose: 20 mg Potassium Chloride (Klor-Con M20) 60 meq PO TIDMEALS [facility] Last Admin: 08/31/17 13:00 Dose: 60 meq Potassium Chloride (Klor-Con M20) 40 meq PO ONETIME ONE Stop: 08/30/17 19:46 Last Admin: 08/30/17 20:44 Dose: 40 meq Potassium Chloride (Klor-Con M20) 40 meq PO ONETIME ONE Stop: 08/30/17 23:01 Last Admin: 08/30/17 23:25 Dose: 40 meq Pregabalin (Lyrica) 200 mg PO TID [facility] Last Admin: 08/31/17 14:31 Dose: 200 mg Propofol (Diprivan 20 Ml) Confirm Administered Dose 400 mg .ROUTE .STK-MED ONE Stop: 08/28/17 10:56 Scopolamine (Transderm-Scop) 1.5 mg TRDERM ONARRIVE [facility] Last Admin: 08/28/17 10:41 Dose: 1.5 mg Simvastatin (Zocor) 10 mg PO BEDTIME [facility] Last Admin: 08/30/17 20:43 Dose: 10 mg Sodium Chloride (Saline Flush) 10 ml FLUSH ASDIRECTED PRN PRN Reason: Keep Vein Open Sodium Chloride (Saline Flush) 2.5 ml FLUSH ASDIRECTED PRN PRN Reason: Keep Vein Open Tranexamic Acid (Cyklokapron) 4,000 mg IV SEECOMMENT [facility] Tranexamic Acid (Cyklokapron) Confirm Administered Dose 4,000 mg .ROUTE .STK- MED ONE Stop: 08/28/17 07:17 - My Orders Last 24 Hours: Active Orders 24 hr Category Date Time Status Discontinue Telemetry Monitoring [Cardiac Monitoring Care 08/31/17 14:02 Active Discontinue] [RC] Click to Edit RT Aerosol Therapy [RC] ASDIRECTED Care 08/30/17 20:48 Active Ready for Discharge [RC] PER UNIT ROUTINE Care 08/31/17 13:25 Active - Plan Plan (Free Text/Narrative):: 1300 Patient seen and examined. Agree with above note. Patient is currently sitting up in her chair eating lunch. Her pain has been well-controlled. She continues to progress with physical therapy. She states she feels much less lethargic today. She is currently taking oral pain medication only. She has been seen by the hospitalist. Her potassium has improved as well. Exam of the knee shows the dressing to be dry and intact. She has no calf tenderness. AT/EHL/gastroc 5/5. Sensation grossly intact. DP/PT pulses 2+. At this time will plan on discharging the patient home. She may continue with outpatient physical therapy. She does have a follow-up appointment in 10-14 days for reevaluation. She is advised to contact us if she has questions or concerns before that time. [email or web address]
[2017-08-31] MEDS: Aspirin 325 MG Tab PO SCH (08:39)
[2017-08-31] MEDS: Bumetanide 1 MG Tab PO SCH ×2 (08:39→14:29)
[2017-08-31] MEDS: Amitriptyline 10 MG Tab PO SCH (08:40)
[2017-08-31] MEDS: Docusate Sodium 100 MG Cap PO SCH (08:40)
[2017-08-31] MEDS: DULoxetine 60 MG Cap PO SCH (08:40)
[2017-08-31] MEDS: Carvedilol 3.125 MG Tab PO SCH (08:40)
[2017-08-31] MEDS: Potassium Chloride 20 MEQ Tab.ER PO SCH ×2 (08:40→13:00)
[2017-08-31] MEDS: Metolazone 5 MG Tab PO SCH (08:41)
--- NOTE | 2017-08-31 08:55 | PCM.CONSN ---
- General Info Date of Service: 08/31/17 Admission Dx/Problem (Free Text): Admission Diagnosis/Problem Admission Diagnosis/Problem Revision of total knee joint Subjective Update: Doing well this morning, less confused and more alert. Reports she is feeling a lot better today. NO chest pain or SOB. Functional Status: Reports: Pain Controlled, Tolerating Diet, Ambulating, Urinating - Review of Systems General: Reports: No Symptoms. Denies: Fever HEENT: Denies: No Symptoms, Contact Lenses, Sore Throat, Visual Changes Pulmonary: Reports: No Symptoms. Denies: Shortness of Breath Cardiovascular: Reports: No Symptoms. Denies: Chest Pain Gastrointestinal: Reports: No Symptoms. Denies: Abdominal Pain, Nausea, Vomiting Genitourinary: Reports: No Symptoms. Denies: Dysuria, Frequency, Burning Musculoskeletal: Reports: Leg Pain (knee pain, but improving.) Psychiatric: Reports: No Symptoms - Patient Data Vitals - Most Recent: Last Vital Signs Temp 97.6 F 08/31/17 08:00 Pulse 69 08/31/17 08:40 Resp 20 08/31/17 08:00 BP 99/65 08/31/17 08:40 Pulse Ox 96 08/31/17 08:00 Weight - Most Recent: 106 kg I&O - Last 24 Hours: Intake & Output 08/30/17 08/31/17 08/31/17 22:59 06:59 14:59 Intake Total 1040 800 Output Total 2600 400 Balance -1560 400 Lab Results Last 24 Hours: Laboratory Results - last 24 hr 08/30/17 08/30/17 08/30/17 Range/Units 11:25 11:52 13:05 WBC (4.0-11.0) K/uL RBC (4.30-5.90) M/uL Hgb (12.0-16.0) g/dL Hct (36.0-46.0) % MCV (80.0-98.0) fL MCH (27.0-32.0) pg MCHC (31.0-37.0) g/dL RDW Std Deviation (28.0-62.0) fl RDW Coeff of So (11.0-15.0) % Plt Count (150-400) K/uL MPV (7.40-12.00) fL Neut % (Auto) (48.0-80.0) % Lymph % (Auto) (16.0-40.0) % [place] % (Auto) (0.0-15.0) % Eos % (Auto) (0.0-7.0) % Baso % (Auto) (0.0-1.5) % Neut # (Auto) (1.4-5.7) K/uL Lymph # (Auto) (0.6-2.4) K/uL [place] # (Auto) (0.0-0.8) K/uL Eos # (Auto) (0.0-0.7) K/uL Baso # (Auto) (0.0-0.1) K/uL Nucleated RBC % /100WBC Nucleated RBCs # K/uL ABG pH 7.456 H (7.35-7.45) ABG pCO2 60 H (35-45) mmHG ABG pO2 65 L (75-100) mmHG ABG HCO3 42 H (22-26) mEq/L ABG Total CO2 38.6 ABG Base Excess 15.8 H (-2.0-2.0) Sodium (136-146) mmol/L Potassium (3.5-5.1) mmol/L Chloride (98-110) mmol/L Carbon Dioxide (21-31) mmol/L BUN (6.0-23.0) mg/dL Creatinine (0.6-1.5) mg/dL Est Cr Clr Drug Dosing mL/min Estimated GFR (MDRD) ml/min Glucose (60-110) mg/dL POC Glucose 129 H (60-110) mg/dL Calcium (8.8-10.8) mg/dL Urine Color YELLOW Urine Appearance CLEAR Urine pH 6.0 (5.0-8.0) Ur Specific [place] <= 1.005 (1.001-1.035) Urine Protein NEGATIVE (NEGATIVE) mg/dL Urine Glucose (UA) NEGATIVE (NEGATIVE) mg/dL Urine Ketones NEGATIVE (NEGATIVE) mg/dL Urine Occult Blood MODERATE (NEGATIVE) Urine Nitrite NEGATIVE (NEGATIVE) Urine Bilirubin NEGATIVE (NEGATIVE) Urine Urobilinogen 0.2 (<2.0) EU/dL Ur Leukocyte Esterase NEGATIVE (NEGATIVE) Urine RBC 0-2 (0-2/HPF) Urine WBC 0-1 (0-5/HPF) Ur Epithelial Cells RARE (NONE-FEW) Urine Bacteria RARE (NEGATIVE) 08/30/17 08/30/17 08/31/17 Range/Units 15:55 20:40 05:55 WBC (4.0-11.0) K/uL RBC (4.30-5.90) M/uL Hgb (12.0-16.0) g/dL Hct (36.0-46.0) % MCV (80.0-98.0) fL MCH (27.0-32.0) pg MCHC (31.0-37.0) g/dL RDW Std Deviation (28.0-62.0) fl RDW Coeff of So (11.0-15.0) % Plt Count (150-400) K/uL MPV (7.40-12.00) fL Neut % (Auto) (48.0-80.0) % Lymph % (Auto) (16.0-40.0) % [place] % (Auto) (0.0-15.0) % Eos % (Auto) (0.0-7.0) % Baso % (Auto) (0.0-1.5) % Neut # (Auto) (1.4-5.7) K/uL Lymph # (Auto) (0.6-2.4) K/uL [place] # (Auto) (0.0-0.8) K/uL Eos # (Auto) (0.0-0.7) K/uL Baso # (Auto) (0.0-0.1) K/uL Nucleated RBC % /100WBC Nucleated RBCs # K/uL ABG pH (7.35-7.45) ABG pCO2 (35-45) mmHG ABG pO2 (75-100) mmHG ABG HCO3 (22-26) mEq/L ABG Total CO2 ABG Base Excess (-2.0-2.0) Sodium (136-146) mmol/L Potassium (3.5-5.1) mmol/L Chloride (98-110) mmol/L Carbon Dioxide (21-31) mmol/L BUN (6.0-23.0) mg/dL Creatinine (0.6-1.5) mg/dL Est Cr Clr Drug Dosing mL/min Estimated GFR (MDRD) ml/min Glucose (60-110) mg/dL POC Glucose 111 H 274 H 162 H (60-110) mg/dL Calcium (8.8-10.8) mg/dL Urine Color Urine Appearance Urine pH (5.0-8.0) Ur Specific [place] (1.001-1.035) Urine Protein (NEGATIVE) mg/dL Urine Glucose (UA) (NEGATIVE) mg/dL Urine Ketones (NEGATIVE) mg/dL Urine Occult Blood (NEGATIVE) Urine Nitrite (NEGATIVE) Urine Bilirubin (NEGATIVE) Urine Urobilinogen (<2.0) EU/dL Ur Leukocyte Esterase (NEGATIVE) Urine RBC (0-2/HPF) Urine WBC (0-5/HPF) Ur Epithelial Cells (NONE-FEW) Urine Bacteria (NEGATIVE) 08/31/17 08/31/17 Range/Units 07:00 07:00 WBC 8.85 (4.0-11.0) K/uL RBC 4.26 L (4.30-5.90) M/uL Hgb 12.2 (12.0-16.0) g/dL Hct 37.2 (36.0-46.0) % MCV 87.3 (80.0-98.0) fL MCH 28.6 (27.0-32.0) pg MCHC 32.8 (31.0-37.0) g/dL RDW Std Deviation 45.6 (28.0-62.0) fl RDW Coeff of So 14 (11.0-15.0) % Plt Count 181 (150-400) K/uL MPV 12.10 H (7.40-12.00) fL Neut % (Auto) 58.5 (48.0-80.0) % Lymph % (Auto) 20.5 (16.0-40.0) % [place] % (Auto) 8.9 (0.0-15.0) % Eos % (Auto) 11.8 H (0.0-7.0) % Baso % (Auto) 0.3 (0.0-1.5) % Neut # (Auto) 5.2 (1.4-5.7) K/uL Lymph # (Auto) 1.8 (0.6-2.4) K/uL [place] # (Auto) 0.8 (0.0-0.8) K/uL Eos # (Auto) 1.0 H (0.0-0.7) K/uL Baso # (Auto) 0.0 (0.0-0.1) K/uL Nucleated RBC % 0.0 /100WBC Nucleated RBCs # 0 K/uL ABG pH (7.35-7.45) ABG pCO2 (35-45) mmHG ABG pO2 (75-100) mmHG ABG HCO3 (22-26) mEq/L ABG Total CO2 ABG Base Excess (-2.0-2.0) Sodium 139 (136-146) mmol/L Potassium 3.9 (3.5-5.1) mmol/L Chloride 92 L (98-110) mmol/L Carbon Dioxide 32 H (21-31) mmol/L BUN 16 (6.0-23.0) mg/dL Creatinine 1.0 (0.6-1.5) mg/dL Est Cr Clr Drug Dosing 41.99 mL/min Estimated GFR (MDRD) 55.0 ml/min Glucose 131 H (60-110) mg/dL POC Glucose (60-110) mg/dL Calcium 9.4 (8.8-10.8) mg/dL Urine Color Urine Appearance Urine pH (5.0-8.0) Ur Specific [place] (1.001-1.035) Urine Protein (NEGATIVE) mg/dL Urine Glucose (UA) (NEGATIVE) mg/dL Urine Ketones (NEGATIVE) mg/dL Urine Occult Blood (NEGATIVE) Urine Nitrite (NEGATIVE) Urine Bilirubin (NEGATIVE) Urine Urobilinogen (<2.0) EU/dL Ur Leukocyte Esterase (NEGATIVE) Urine RBC (0-2/HPF) Urine WBC (0-5/HPF) Ur Epithelial Cells (NONE-FEW) Urine Bacteria (NEGATIVE) Chriss Results Last 24 Hours: Microbiology 08/28/17 12:05 Gram Stain - Final Leg, Left Wound Culture - Final No Growth Anaerobic Culture - Final NO ANAEROBES ISOLATED Med Orders - Current: Current Medications Hydrocodone Bitart/Acetaminophen ([place] 325-10 Mg) 1 - 2 tab PO Q4H PRN PRN Reason: Pain Last Admin: 08/31/17 06:17 Dose: 2 tab Al Hydroxide/Mg Hydroxide (Mag-Al Plus) 30 ml PO Q4H PRN PRN Reason: indigestion Albuterol (Ventolin Hfa) 0 gm INH Q4H PRN PRN Reason: Shortness of Breath Albuterol/Ipratropium (Duoneb 3.0-0.5 Mg/3 Ml) 3 ml NEB Q4H [facility] Last Admin: 08/31/17 06:14 Dose: 3 ml Alprazolam (Xanax) 0.5 mg PO BID PRN PRN Reason: Anxiety Amitriptyline HCl (Elavil) 10 mg PO BID [facility] Last Admin: 08/31/17 08:40 Dose: 10 mg Aspirin (Aspirin) 325 mg PO BID [facility] Last Admin: 08/31/17 08:39 Dose: 325 mg Bisacodyl (Dulcolax) 10 mg RECTAL DAILY PRN PRN Reason: Constipation Bumetanide (Bumex) 3 mg PO BID@0800,1400 [facility] Last Admin: 08/31/17 08:39 Dose: 3 mg Carvedilol (Coreg) 3.125 mg PO BID [facility] Last Admin: 08/31/17 08:40 Dose: 3.125 mg Diphenhydramine HCl (Benadryl) 25 - 50 mg PO Q6H PRN PRN Reason: Itching Docusate Sodium (Colace) 100 mg PO BID [facility] Last Admin: 08/31/17 08:40 Dose: 100 mg Duloxetine HCl (Cymbalta) 60 mg PO DAILY [facility] Last Admin: 08/31/17 08:40 Dose: 60 mg Levofloxacin/Dextrose 750 mg/ (Premix) 150 mls @ 100 mls/hr IV Q48H [facility] Last Admin: 08/30/17 03:20 Dose: 100 mls/hr Metolazone (Zaroxolyn) 2.5 mg PO DAILY [facility] Last Admin: 08/31/17 08:41 Dose: 2.5 mg Midodrine (Midodrine) 5 mg PO TID [facility] Last Admin: 08/31/17 05:43 Dose: 5 mg Ondansetron HCl (Zofran) 4 mg IV Q6HR PRN PRN Reason: NAUSEA/VOMITING Potassium Chloride (Klor-Con M20) 60 meq PO TIDMEALS [facility] Last Admin: 08/31/17 08:40 Dose: 60 meq Pregabalin (Lyrica) 200 mg PO TID [facility] Last Admin: 08/31/17 05:43 Dose: 200 mg Simvastatin (Zocor) 10 mg PO BEDTIME [facility] Last Admin: 08/30/17 20:43 Dose: 10 mg Sodium Chloride (Saline Flush) 10 ml FLUSH ASDIRECTED PRN PRN Reason: Keep Vein Open Sodium Chloride (Saline Flush) 2.5 ml FLUSH ASDIRECTED PRN PRN Reason: Keep Vein Open Discontinued Medications Acetaminophen (Tylenol Extra Strength) 1,000 mg PO ONARRIVE [facility] Last Admin: 08/28/17 10:42 Dose: 1,000 mg Albuterol (Ventolin Hfa) 2 gm INH Q4H PRN PRN Reason: Shortness of Breath Alprazolam (Xanax) 1 mg PO BID PRN PRN Reason: Anxiety Last Admin: 08/29/17 20:19 Dose: 1 mg Bumetanide (Bumex) 3 mg PO 08/28/17@2100 ANN MARIE Stop: 08/28/17 21:01 Last Admin: 08/28/17 20:24 Dose: 3 mg Celecoxib (Celebrex) 200 mg PO DAILY [facility] Ephedrine Sulfate (Ephedrine Sulfate) Confirm Administered Dose 50 mg .ROUTE .STK-MED ONE Stop: 08/28/17 10:57 Famotidine (Pepcid) 40 mg IVPUSH ONARRIVE [facility] Last Admin: 08/28/17 10:40 Dose: 40 mg Fentanyl (Sublimaze) Confirm Administered Dose 200 mcg .ROUTE .STK-MED ONE Stop: 08/28/17 10:56 Fentanyl (Sublimaze) 50 mcg IVPUSH Q5M PRN PRN Reason: Pain (severe 7-10) Stop: 08/29/17 12:18 Last Admin: 08/28/17 13:40 Dose: 50 mcg Cefazolin Sodium/Dextrose 2 gm (/ Premix) 50 mls @ 100 mls/hr IV ONCALL [facility] Ropivacaine 49.25 ml/Ketorolac Tromethamine 30 mg/Epinephrine HCl 0.5 mg/ Clonidine HCl 80 mcg/ Sodium Chloride 100 mls @ 50 mls/min INJECT ONETIME ONE Stop: 08/28/17 06:01 Last Admin: 08/28/17 14:17 Dose: Not Given Lactated Ringer's (Ringers, Lactated) 1,000 mls @ 100 mls/hr IV ASDIRECTED [facility] Last Admin: 08/28/17 10:35 Dose: 100 mls/hr Cefazolin Sodium/Dextrose 2 gm (/ Premix) 50 mls @ 100 mls/hr IV Q8HR [facility] Stop: 08/28/17 22:29 Last Admin: 08/28/17 17:27 Dose: Not Given Magnesium Sulfate 4 gm/ Premix 100 mls @ 50 mls/hr IV ONETIME ONE Stop: 08/28/17 17:23 Last Admin: 08/28/17 15:50 Dose: 50 mls/hr Cefazolin Sodium/Dextrose 2 gm (/ Premix) 50 mls @ 100 mls/hr IV Q8H [facility] Stop: 08/29/17 01:44 Last Infusion: 08/29/17 02:03 Dose: Infused Potassium Chloride 40 meq/ (Sodium Chloride) 520 mls @ 100 mls/hr IV ONETIME ONE Stop: 08/29/17 13:31 Last Admin: 08/29/17 09:05 Dose: 100 mls/hr Ketorolac Tromethamine (Toradol) 30 mg IVPUSH ONARRIVE [facility] Last Admin: 08/28/17 10:42 Dose: 30 mg Ketorolac Tromethamine (Toradol) 30 mg IVPUSH Q6H ANN MARIE Stop: 08/29/17 09:00 Lidocaine (Xylocaine-Mpf 2%) Confirm Administered Dose 10 ml .ROUTE .STK-MED ONE Stop: 08/28/17 10:56 Midazolam HCl (Versed 1 Mg/Ml) Confirm Administered Dose 2 mg .ROUTE .STK-MED ONE Stop: 08/28/17 10:56 Midodrine (Midodrine) 5 mg PO TID [facility] Last Admin: 08/28/17 15:34 Dose: Not Given Ondansetron HCl (Zofran) Confirm Administered Dose 4 mg .ROUTE .STK-MED ONE Stop: 08/28/17 10:57 Ondansetron HCl (Zofran) Confirm Administered Dose 4 mg .ROUTE .STK-MED ONE Stop: 08/28/17 13:02 Last Admin: 08/28/17 14:18 Dose: Not Given Oxycodone HCl (Oxycontin) 20 mg PO ONARRIVE [facility] Last Admin: 08/28/17 10:43 Dose: 20 mg Potassium Chloride (Klor-Con M20) 40 meq PO ONETIME ONE Stop: 08/30/17 19:46 Last Admin: 08/30/17 20:44 Dose: 40 meq Potassium Chloride (Klor-Con M20) 40 meq PO ONETIME ONE Stop: 08/30/17 23:01 Last Admin: 08/30/17 23:25 Dose: 40 meq Propofol (Diprivan 20 Ml) Confirm Administered Dose 400 mg .ROUTE .STK-MED ONE Stop: 08/28/17 10:56 Scopolamine (Transderm-Scop) 1.5 mg TRDERM ONARRIVE ANN MARIE Last Admin: 08/28/17 10:41 Dose: 1.5 mg Tranexamic Acid (Cyklokapron) 4,000 mg IV SEECOMMENT ANN MARIE Tranexamic Acid (Cyklokapron) Confirm Administered Dose 4,000 mg .ROUTE .STK- MED ONE Stop: 08/28/17 07:17 - Exam Quality Assessment: No: Supplemental Oxygen General: Alert, Oriented, Cooperative, No Acute Distress Lungs: Clear to Auscultation, Normal Respiratory Effort Cardiovascular: Regular Rate, Regular Rhythm GI/Abdominal Exam: Normal Bowel Sounds, Soft, Non-Tender, No Organomegaly, No Distention, No Abnormal Bruit, No Mass, Pelvis Stable Back Exam: Normal Inspection, Full Range of Motion Extremities: Normal Range of Motion, Pedal Edema (+1 BLE) Wound/Incisions: Dressing Dry and Intact Psy/Mental Status: Alert, Normal Affect, Normal Mood Consult PN Assessment/Plan Procedures: Procedures BODY FLUID CELL COUNT (01/24/17) BONE IMAGING 3 PHASE (03/08/17) CHEST X-RAY 1 VIEW FRONTAL (11/18/16) CULTURE OTHR SPECIMN AEROBIC (01/24/17) DRAIN/INJ JOINT/BURSA W/O US (12/08/16) EXAM SYNOVIAL FLUID CRYSTALS (01/24/17) LUNG VENTILAT&PERFUS IMAGING (11/18/16) OFFICE/OUTPATIENT VISIT NEW (09/16/16) OFFICE/OUTPATIENT VISIT NEW (03/26/14) ORGANIC ACID SINGLE QUANT (09/16/16) PROTEIN E-PHORESIS SERUM (09/16/16) SMEAR GRAM STAIN (01/24/17) URINALYSIS NONAUTO W/SCOPE (03/26/14) VITAMIN B-12 (09/16/16) X-RAY EXAM KNEE 4 OR MORE (12/08/16) X-RAY EXAM OF KNEE 3 (06/28/16) (1) S/P revision of total knee SNOMED Code(s): 014141395 Code(s): Z96.659 - PRESENCE OF UNSPECIFIED ARTIFICIAL KNEE JOINT Current Visit: Yes Qualifiers: Laterality: left Qualified Code(s): Z96.652 - Presence of left artificial knee joint (2) HTN (hypertension) SNOMED Code(s): 69074485 Code(s): I10 - ESSENTIAL (PRIMARY) HYPERTENSION Current Visit: Yes Qualifiers: Hypertension type: essential hypertension Qualified Code(s): I10 - Essential (primary) hypertension (3) Hypertensive heart disease SNOMED Code(s): 74396219 Code(s): I11.9 - HYPERTENSIVE HEART DISEASE WITHOUT HEART FAILURE Current Visit: Yes Qualifiers: Heart failure presence: with heart failure Qualified Code(s): I11.0 - Hypertensive heart disease with heart failure (4) Diastolic CHF SNOMED Code(s): 655375267 Code(s): I50.30 - UNSPECIFIED DIASTOLIC (CONGESTIVE) HEART FAILURE Current Visit: Yes Qualifiers: Congestive heart failure chronicity: chronic Qualified Code(s): I50.32 - Chronic diastolic (congestive) heart failure (5) Hx of diabetes mellitus SNOMED Code(s): 454744057 Code(s): Z86.39 - PERSONAL HISTORY OF ENDO, NUTRITIONAL AND METABOLIC DISEASE Current Visit: Yes (6) Depression SNOMED Code(s): 22664805 Code(s): F32.9 - MAJOR DEPRESSIVE DISORDER, SINGLE EPISODE, UNSPECIFIED Current Visit: Yes Qualifiers: Depression Type: unspecified Qualified Code(s): F32.9 - Major depressive disorder, single episode, unspecified (7) Anxiety SNOMED Code(s): 14058798 Code(s): F41.9 - ANXIETY DISORDER, UNSPECIFIED Current Visit: Yes (8) Hypokalemia SNOMED Code(s): 45255802 Code(s): E87.6 - HYPOKALEMIA Current Visit: Yes (9) Hypomagnesemia SNOMED Code(s): 300526259 Code(s): E83.42 - HYPOMAGNESEMIA Current Visit: Yes (10) Morbid obesity with BMI of 40.0-44.9, adult SNOMED Code(s): 005386181 Code(s): E66.01 - MORBID (SEVERE) OBESITY DUE TO EXCESS CALORIES; Z68.41 - BODY MASS INDEX (BMI) 40.0-44.9, ADULT Current Visit: Yes Problem List Initiated/Reviewed/Updated: Yes Plan: This 67 year old female admitted with revision of L TKA. Hospitalist service consulted for medical management due to comorbidities. 1. S/P revision L TKA: Orders per Dr. Maria 2. HTN: Continue Coreg 3.125 mg BID. 3. Diastolic CHF: Stable, DAILY weight and STRICT I/O, low Na diet. Continue Bumex and Metolazone. Also continue Midodrine for hypotension. 4. Hyokalemia/hypomagnesemia: K+ 3.9 today. Continue KCL PO 60 MEQ TID. 5. CAD:Continue ASA and Atorvastatin. 6. Confusion/grogginess: Likely related to Scopolamine patch, this was removed yesterday afternoon and confusion clear overnight. Feeling much better this am. VTE prophlyaxis: Would recommend when Ortho deems appropriate, currently ASA 325 BID ordered. Dispo: OK to discharge home today. Will add Levaquin 750 mg x 3 more days, 5 day course for early suspected pneumonia. FOllow up with PCP in 1 week.
--- NOTE | 2017-08-31 13:32 | PCM.SN ---
- Free Text/Narrative Note: Discharge summary Dressing changed prior to discharge. See discharge plan for complete list of discharge medications and instructions. Dictation #: [id number]
--- NOTE | 2017-09-01 03:10 | DISCH ---
DATE OF DISCHARGE: 08/31/2017 PRIMARY CARE PHYSICIAN: Kayy Solis NP ADMITTING DIAGNOSIS: Painful left total knee arthroplasty. OTHER MEDICAL DIAGNOSES: 1. Hypertension. 2. Diastolic congestive heart failure. 3. Hypokalemia. 4. Hypomagnesemia. 5. Coronary artery disease. DISCHARGE DIAGNOSES: 1. Status post left total knee arthroplasty revision. 2. Hypertension. 3. Diastolic congestive heart failure. 4. Hypokalemia. 5. Hypomagnesemia. 6. Coronary artery disease. BRIEF HISTORY: Abeba is a 67-year-old female, who underwent a left total knee arthroplasty approximately 4 years ago. She did well initially following the surgery. She has developed increased pain in the knee. She had synovial studies done as well as a bone scan, which did not show significant abnormal findings. Due to her lack of response to conservative treatment, surgical intervention was recommended at that time. SURGERY: Left total knee arthroplasty. HOSPITAL COURSE: Pain was controlled with a combination of IV and p.o. pain medications. The patient was given 2 doses of Ancef postoperatively for 24 hours of antibiotic coverage. She was followed by Physical Therapy and hospitalist during her hospital stay. Upon discharge, her vital signs were stable and she was afebrile. Hemoglobin on the day of discharge 12.2. Aspirin 325 mg was started on postop day #1 for DVT prophylaxis. Pain is currently controlled with oral pain medications only. She is tolerating oral intake and ambulating with wheeled walker. She feels comfortable with discharge to home today. DISCHARGE MEDICATIONS: 1. [place] 10/325. 2. Aspirin 325 mg. 3. Colace 100 mg. 4. Levaquin 750 mg. DISCHARGE INSTRUCTIONS: 1. Follow up in the clinic on September 12. This appointment has been made for the patient. 2. Outpatient physical therapy 2 to 3 times per week for 4 to 6 weeks. 3. [facility] to the left knee. 4. GABRIELLE hose to bilateral lower extremities, on in the morning and off in the evening. For a complete medication reconciliation and discharge instructions, please refer to the patient's EHR. If the patient has questions or concerns prior to followup, she may call the clinic. TYESHA LONGORIA /[id number]
== END 2017-08-31 14:50 | disposition home or self-care (01) | DRG 466 ==
LOC: MW.MS 08-28 09:24
PROVIDERS: ADMIT Orthopaedic Surgery; ATTEND Orthopaedic Surgery
PROC: 0SPD0JZ Removal of Synthetic Substitute from Left Knee Joint, Open Approach (ICD-10-PCS; principal; 2017-08-28)
PROC: 0SRD0JZ Replacement of Left Knee Joint with Synthetic Substitute, Open Approach (ICD-10-PCS; 2017-08-28)
DX: M25.562 Pain in left knee (principal); J18.9 Pneumonia, unspecified organism; I50.30 Unspecified diastolic (congestive) heart failure; Z68.41 Body mass index [BMI] 40.0-44.9, adult; I10 Essential (primary) hypertension; E87.6 Hypokalemia; E83.42 Hypomagnesemia; I25.10 Atherosclerotic heart disease of native coronary artery without angina pectoris; E66.01 Morbid (severe) obesity due to excess calories; F32.9 Major depressive disorder, single episode, unspecified; F41.9 Anxiety disorder, unspecified; Z88.8 Allergy status to other drugs, medicaments and biological substances; Z96.652 Presence of left artificial knee joint; Z79.899 Other long term (current) drug therapy; Z87.891 Personal history of nicotine dependence; R41.0 Disorientation, unspecified; R09.02 Hypoxemia
CPT/HCPCS: 01402; 36410; 36415; 36600; 71010; 71010-26; 80048; 81001; 82803; 82962; 83735; 85014; 85018; 85025; 86850; 86900; 86901; 87070; 87075; 87205; 88300; 88305; 88331; 94640; 97110-GP; 97116-GP; 97161-GP; A9270-GY; C1776; J0690; J1885; J1956; J2250; J2405; J2704; J3010; J3475; J3480; J7040; J7120